=== PATIENT | female | born 1940 | race Caucasian/White ===

== ENCOUNTER → 2017-03-14 | Outpatient (CLI) | payer MEDICARE, OTHER ==
[2017-03-14 09:28] LABS: CHLORIDE,CL 101 mmol/L (98-110); SODIUM,NA 132 mmol/L (136-146)
== END ==
LOC: MW.CHIM 08:40
PROVIDERS: ATTEND Internal Medicine
DX: E11.9 Type 2 diabetes mellitus without complications (principal); I10 Essential (primary) hypertension
CPT/HCPCS: 36415; 80053; 80061; 83036; 85025; 99214

== ENCOUNTER → 2017-04-10 | Outpatient (CLI) | payer MEDICARE, OTHER ==
--- NOTE | 2017-04-10 13:55 | CR ---
EXAMINATION: Right foot HISTORY: Injury COMPARISON: None TECHNIQUE: 2 views FINDINGS: There is a small plantar and large Achilles calcaneal osteophyte. Mild to moderate degener ative changes are noted at the first MTP joint with mild hallux valgus. Mild degenerative changes no neal within the midfoot. No fracture or acute osseous abnormality. Bone mineralization is otherwise n ormal. IMPRESSION: Degenerative changes without acute findings.
== END ==
LOC: MW.CHIM 09:56
PROVIDERS: ATTEND Internal Medicine
DX: T14.90 Injury, unspecified (principal); S90.121A Contusion of right lesser toe(s) without damage to nail, initial encounter; S90.31XA Contusion of right foot, initial encounter; E11.9 Type 2 diabetes mellitus without complications; I10 Essential (primary) hypertension
CPT/HCPCS: 73620-26-RT; 73620-RT; 99214

== ENCOUNTER 2017-12-08 12:56 | Emergency (ER) | payer MEDICARE, OTHER ==
[2017-12-08] MEDS ORDERED: Sodium Chloride 0.9% 2.5 ML Syringe FLUSH PRN (13:06)
[2017-12-08] MEDS ORDERED: Sodium Chloride 0.9% 10 ML Syringe FLUSH PRN (13:06)
[2017-12-08] MEDS ORDERED: Aspirin 81 MG Tab.Chew PO ONE (13:06)
[2017-12-08] MEDS ORDERED: Nitroglycerin 0.4 MG Tab.SL SL ONE (13:06)
--- NOTE | 2017-12-08 13:20 | EDM.PDOC ---
ED HPI GENERAL MEDICAL PROBLEM - General Chief Complaint: Chest Pain Stated Complaint: HEADACHE AND NUMBNESS IN LEFT ARM Time Seen by Provider: 12/08/17 13:15 Source of Information: Reports: Patient History Limitations: Reports: No Limitations - History of Present Illness INITIAL COMMENTS - FREE TEXT/NARRATIVE: HISTORY AND PHYSICAL: History of present illness: [Patient comes to the emergency room complaining of chest pain. States that it began 30 minutes ago and feels like a squeezing sensation over her left chest, which has been fairly constant.. She's had some some radiation down her arm, which comes and goes as well as the tingly feeling. She feels short of breath with this chest pain. Prior to coming to the emergency room she felt very nauseous and extremely sweaty. She also has a headache in the back of her head. She's not taken any medications for her symptoms. She does not usually experience chest pain or shortness of breath. Had a stent placed in approx 2002 by a hostage negotiator in [place]. Cannot remember name. History of coronary artery disease, depression, hyperlipidemia, GERD, hypertension, hypothyroidism, type 2 diabetes. She follows regularly with Dr. Arce at [facility]] Review of systems: As per history of present illness and below otherwise all systems reviewed and negative. Past medical history: As per history of present illness and as reviewed below otherwise noncontributory. Surgical history: As per history of present illness and as reviewed below otherwise noncontributory. Social history: No reported history of drug or alcohol abuse. Family history: As per history of present illness and as reviewed below otherwise noncontributory. Physical exam: Gen.: Well-developed thin elderly female in no acute distress. Vitals are reviewed by this provider. HEENT: Atraumatic, normocephalic. Oral mucous membranes are pink and moist. Lungs: Clear to auscultation, breath sounds equal bilaterally. palpation over her left chest wall and left arm does not reproduce pain. Heart: S1S2, regular rate and rhythm. Abdomen: Soft, nondistended, nontender. Genitourinary: Deferred. Rectal: Deferred. Extremities: Atraumatic, negative for cords or calf pain. Neurovascular unremarkable. Neuro: Awake, alert, oriented. Cranial nerves II through XII unremarkable. Cerebellum unremarkable. Motor and sensory unremarkable throughout. Exam nonfocal. Diagnostics: [EKG, one view chest x-ray, CBC, CMP, troponin, UA, PT/INR/PTT] Therapeutics: [Aspirin 324 mg by mouth, morphine 1 mg IV, nitroglycerin sublingual 3, Zofran 4 mg IV, morphine 2 mg IV] Impression: [Chest pain] Plan: [Patient continues to complain of 8/10 pain in her left chest and down her left arm after nitroglycerin and morphine. She initially had some improvement with her pain from 6-5 out of 10 after 2 doses of nitroglycerin. Patient's condition is reviewed with Dr. Massimo yanez at [facility] in [place]. He agrees to accept patient in transfer. She'll be transferred via [facility]. Heparin 5000 unit bolus given. Heparin drip hanging at 12 units/kg/hour. Patient and her in agreement with today's plan and transfer.] Definitive disposition and diagnosis as appropriate pending reevaluation and review of above. - Related Data Allergies Allergy/AdvReac Type Severity Reaction Status Date / Time No Known Allergies Allergy Verified 12/08/17 13:29 Home Meds: Home Meds Atenolol [Tenormin] 50 mg PO BEDTIME 08/17/14 [History] DULoxetine HCl [Duloxetine HCl] 30 mg PO DAILY 08/17/14 [History] Gemfibrozil 600 mg PO BID 08/17/14 [History] Levothyroxine Sodium [Levoxyl] 50 mcg PO ASDIRECTED 08/17/14 [History] Lisinopril 5 mg PO BEDTIME 08/17/14 [History] Ramipril [Altace] 5 mg PO DAILY 08/17/14 [History] Simvastatin 20 mg PO BEDTIME 08/17/14 [History] metFORMIN [Glucophage XR] 500 mg PO QAM 08/17/14 [History] Aspirin [Halfprin] 1 tab PO DAILY 02/23/15 [History] Magnesium Amino Acid Chelate [Magnesium] 1 tab PO DAILY 02/23/15 [History] Potassium 1 tab PO DAILY 02/23/15 [History] Omeprazole 20 mg PO DAILY 05/04/15 [History] Social & Family History - Tobacco Use Smoking Status *Q: Never Smoker Second Hand Smoke Exposure: No - Alcohol Use Days Per Week of Alcohol Use: 0 - Recreational Drug Use Recreational Drug Use: No Drug Use in Last 12 Months: No ED ROS GENERAL - Review of Systems Review Of Systems: ROS reveals no pertinent complaints other than HPI. ED EXAM, GENERAL - Physical Exam Exam: See Below Course - Vital Signs Last Recorded V/S: Last Vital Signs Temp 98.9 F 12/08/17 13:10 Pulse 69 12/08/17 13:56 Resp 15 12/08/17 13:56 BP 134/69 12/08/17 13:56 Pulse Ox 99 12/08/17 13:56 - Orders/Labs/Meds Orders: Active Orders 24 hr Category Date Time Status EKG Documentation Completion [RC] STAT Care 12/08/17 13:06 Active Saline Lock Insert [OM.PC] Stat Oth 12/08/17 13:06 Ordered Labs: Laboratory Tests 12/08/17 12/08/17 12/08/17 Range/Units 13:00 13:00 13:00 WBC 9.83 (4.0-11.0) K/uL RBC 4.97 (4.30-5.90) M/uL Hgb 14.5 (12.0-16.0) g/dL Hct 41.1 (36.0-46.0) % MCV 82.7 (80.0-98.0) fL MCH 29.2 (27.0-32.0) pg MCHC 35.3 (31.0-37.0) g/dL RDW Std Deviation 40.2 (28.0-62.0) fl RDW Coeff of Inderjit 13 (11.0-15.0) % Plt Count 291 (150-400) K/uL MPV 8.50 (7.40-12.00) fL Neut % (Auto) 47.4 L (48.0-80.0) % Lymph % (Auto) 41.6 H (16.0-40.0) % [place] % (Auto) 9.2 (0.0-15.0) % Eos % (Auto) 1.6 (0.0-7.0) % Baso % (Auto) 0.2 (0.0-1.5) % Neut # (Auto) 4.7 (1.4-5.7) K/uL Lymph # (Auto) 4.1 H (0.6-2.4) K/uL [place] # (Auto) 0.9 H (0.0-0.8) K/uL Eos # (Auto) 0.2 (0.0-0.7) K/uL Baso # (Auto) 0.0 (0.0-0.1) K/uL Nucleated RBC % 0.0 /100WBC Nucleated RBCs # 0 K/uL INR 0.97 (0.86-1.11) Sodium 132 L (136-146) mmol/L Potassium 4.7 (3.5-5.1) mmol/L Chloride 99 (98-110) mmol/L Carbon Dioxide 23 (21-31) mmol/L BUN 10 (6.0-23.0) mg/dL Creatinine 1.1 (0.6-1.5) mg/dL Est Cr Clr Drug Dosing TNP Estimated GFR (MDRD) 48.6 ml/min Glucose 226 H (60-110) mg/dL Calcium 9.9 (8.8-10.8) mg/dL Total Bilirubin 0.5 (0.1-1.5) mg/dL AST 34 (5-40) IU/L ALT 40 (8-54) IU/L Alkaline Phosphatase 112 (40-150) Troponin I 0.11 (0.0-0.29) NG/ML Total Protein 7.8 (6.0-8.0) g/dL Albumin 4.1 (3.4-4.8) g/dL Globulin 3.7 H (2.0-3.5) g/dL Albumin/Globulin Ratio 1.1 L (1.3-2.8) Meds: Medications Discontinued Medications Generic Name Dose Route Start Last Admin Trade Name Karina PRN Reason Stop Dose Admin Aspirin 324 mg 12/08/17 13:06 12/08/17 13:11 Aspirin PO 12/08/17 13:07 324 mg ONETIME ONE Administration Heparin Sodium (Porcine) 5,000 units 12/08/17 14:12 12/08/17 14:26 Heparin Sodium IVPUSH 12/08/17 14:13 5,000 units ONETIME ONE Administration Sodium Chloride 1,000 mls @ 999 mls/hr 12/08/17 13:32 12/08/17 13:40 Normal Saline IV 12/08/17 14:32 999 mls/hr STAT ONE Administration Heparin Sod,Pork In 0.45% Nacl 25,000 unit in 500 mls @ 15 mls/hr 12/08/17 14: 15 Heparin-1/2ns 25,000 Units/500 IV ASDIRECTED YVONNE Protocol Morphine Sulfate 1 mg 12/08/17 13:32 12/08/17 13:39 Morphine IVPUSH 12/08/17 13:33 1 mg ONETIME ONE Administration Morphine Sulfate Confirm 12/08/17 13:31 12/08/17 13:40 Morphine Administered 12/08/17 13:32 Not Given Dose 2 mg .ROUTE .STK-MED ONE Morphine Sulfate 2 mg 12/08/17 13:53 12/08/17 13:54 Morphine IVPUSH 12/08/17 13:54 2 mg ONETIME ONE Administration Morphine Sulfate Confirm 12/08/17 13:54 12/08/17 14:19 Morphine Administered 12/08/17 13:55 Not Given Dose 2 mg .ROUTE .STK-MED ONE Nitroglycerin 0.4 mg 12/08/17 13:06 12/08/17 13:14 Nitrostat SL 12/08/17 13:07 0.4 mg ONETIME ONE Administration Nitroglycerin 0.4 mg 12/08/17 13:22 12/08/17 13:42 Nitrostat SL 0.4 mg Q5M PRN Administration Chest Pain Ondansetron HCl 4 mg 12/08/17 13:32 12/08/17 13:40 Zofran IVPUSH 12/08/17 13:33 4 mg ONETIME ONE Administration Ondansetron HCl Confirm 12/08/17 13:31 12/08/17 13:40 Zofran Administered 12/08/17 13:32 Not Given Dose 4 mg .ROUTE .STK-MED ONE Sodium Chloride 10 ml 12/08/17 13:06 Saline Flush FLUSH ASDIRECTED PRN Keep Vein Open Sodium Chloride 2.5 ml 12/08/17 13:06 Saline Flush FLUSH ASDIRECTED PRN Keep Vein Open Departure - Departure Time of Disposition: 13:50 Disposition: DC/Tfer to Acute Hospital 02 Reason for Transfer *Q: Other Condition: Fair Clinical Impression: Chest pain Referrals: Hussain León DO [Primary Care Provider] - Forms: ED Department Discharge - My Orders Last 24 Hours: My Active Orders 12/08/17 13:06 EKG Documentation Completion [RC] STAT Saline Lock Insert [OM.PC] Stat - Assessment/Plan Last 24 Hours: My Active Orders 12/08/17 13:06 EKG Documentation Completion [RC] STAT Saline Lock Insert [OM.PC] Stat
[2017-12-08] MEDS ORDERED: Morphine 2 MG/ML Syringe ONE ×2 (13:31→13:54)
[2017-12-08] MEDS ORDERED: Ondansetron 4 MG/2 ML SDV ONE (13:31)
[2017-12-08] MEDS ORDERED: Sodium Chloride 0.9% 1,000 ML IV ONE (13:32)
[2017-12-08] MEDS ORDERED: Ondansetron 4 MG/2 ML SDV IVPUSH ONE (13:32)
[2017-12-08] MEDS ORDERED: Morphine 2 MG/ML Syringe IVPUSH ONE ×2 (13:32→13:53)
[2017-12-08 13:37] LABS: CHLORIDE,CL 99 mmol/L (98-110); SODIUM,NA 132 mmol/L (136-146)
[2017-12-08] MEDS: Nitroglycerin 0.4 MG Tab.SL SL PRN ×2 (13:41→13:42)
--- NOTE | 2017-12-08 13:54 | CR ---
EXAMINATION: Portable chest radiograph. HISTORY: Chest pain. FINDINGS: The trachea is midline. The cardiomediastinal silhouette is within normal limits. No pulmonary infilt rates, effusions or pneumothorax. Mild chronic interstitial prominence. Osseous structures appear osteopenic. Degenerative changes noted within the shoulders. IMPRESSION: No acute cardiopulmonary process.
[2017-12-08] MEDS ORDERED: Heparin Sodium 5,000 Units/ML Vial IVPUSH ONE (14:12)
[2017-12-08] MEDS ORDERED: Heparin Sod,Pork In 0.45% Nacl 25,000 UNIT/500 ML IV.SOLN IV SCH (14:15)
[2017-12-08 14:19] VITALS: BP 134/69
== END 2017-12-08 14:35 ==
LOC: MW.ED 12:56
DX: R07.9 Chest pain, unspecified (principal); Z79.82 Long term (current) use of aspirin; Z79.899 Other long term (current) drug therapy
CPT/HCPCS: 36415; 71045; 80053; 84484; 85025; 85610; 96361; 96374; 96375; 99285; A9270; J1644; J2270; J2405; J7040; 93005

== ENCOUNTER 2017-12-18 03:29 | Inpatient (IN) | payer MEDICARE, OTHER ==
--- NOTE | 2017-12-18 03:41 | EDM.PDOC ---
ED HPI GENERAL MEDICAL PROBLEM - General Chief Complaint: General Stated Complaint: WEAK Time Seen by Provider: 12/18/17 03:40 Source of Information: Reports: Patient - History of Present Illness INITIAL COMMENTS - FREE TEXT/NARRATIVE: HISTORY AND PHYSICAL: History of present illness: [Patient presents with generalized weakness and an episode of hypotension at home at least on their home equipment they measured 76 over 50s patient was uncertain what to do so she took a nitroglycerin tablet, her brings her in such her blood pressure stable with fluids at 126/56 at current. Patient did at a rear have a recent stay at [facility] she was transferred on 12/08/2017 for acute coronary syndrome subsequently she had a stent removed that was clogged as well as 3 more stents placed, have spoken with [facility] and her troponin had peaked at 16.0 trending down over the last week on discharge Friday troponin was 7. Her troponin is 0.4 current so certainly trending down and of less concern. EKG is normal sinus rhythm with no acute ST changes Patient is mildly confused generally weak no fever nausea vomiting diarrhea constipation chest pain shortness breath headache dizziness or palpitation no diaphoresis ] Review of systems: As per history of present illness and below otherwise all systems reviewed and negative. Past medical history: As per history of present illness and as reviewed below otherwise noncontributory. Surgical history: As per history of present illness and as reviewed below otherwise noncontributory. Social history: No reported history of drug or alcohol abuse. Family history: As per history of present illness and as reviewed below otherwise noncontributory. Physical exam: HEENT: Atraumatic, normocephalic, pupils reactive, negative for conjunctival pallor or scleral icterus, mucous membranes moist, throat clear, neck supple, nontender, trachea midline. Lungs: Clear to auscultation, breath sounds equal bilaterally, chest nontender. Heart: S1S2, regular, negative for clicks, rubs, or JVD. Abdomen: Soft, nondistended, nontender. Negative for masses or hepatosplenomegaly. Negative for costovertebral tenderness. Pelvis: Stable nontender. Genitourinary: Deferred. Rectal: Deferred. Extremities: Atraumatic, negative for cords or calf pain. Neurovascular unremarkable. Neuro: Awake, alert, oriented. Cranial nerves II through XII unremarkable. Cerebellum unremarkable. Motor and sensory unremarkable throughout. Exam nonfocal. Diagnostics: [CBC CMP UA troponin lactic acid EKG Chest [address] head no contrast ] Therapeutics: [Normal saline 1 25 mL per hour ] Impression: Hyponatremia Elevated troponin, trending down from a peak of 16 last week Recent cardiac catheter over the last week with 3 stents placed [Dizzy Week] secondary to above Hypotension secondary to nitroglycerin Patient admitted for observation telemetry Definitive disposition and diagnosis as appropriate pending reevaluation and review of above. head Pain Score (Numeric/FACES): 7 - Related Data Allergies Allergy/AdvReac Type Severity Reaction Status Date / Time No Known Allergies Allergy Verified 12/18/17 03:37 Home Meds: Home Meds DULoxetine HCl [Duloxetine HCl] 30 mg PO BID 08/17/14 [History] Levothyroxine Sodium [Levoxyl] 50 mcg PO ASDIRECTED 08/17/14 [History] Lisinopril 5 mg PO BEDTIME 08/17/14 [History] Ramipril [Altace] 5 mg PO DAILY 08/17/14 [History] metFORMIN [Glucophage XR] 500 mg PO QAM 08/17/14 [History] Aspirin [Halfprin] 1 tab PO DAILY 02/23/15 [History] Carvedilol 6.25 mg PO BID 12/18/17 [History] Clopidogrel [Plavix] 75 mg PO DAILY 12/18/17 [History] Hydrocodone/Acetaminophen [Hydrocodon-Acetaminophen 5-325] 1 each PO Q4H [History] Pantoprazole Sodium 40 mg PO DAILY 12/18/17 [History] atorvaSTATin [Lipitor] 20 mg PO BEDTIME 12/18/17 [History] Past Medical History Cardiovascular History: Reports: Hypertension, Stents Endocrine/Metabolic History: Reports: Diabetes, Type II - Infectious Disease History Infectious Disease History: Reports: Measles Social & Family History - Family History Family Medical History: Noncontributory - Tobacco Use Smoking Status *Q: Never Smoker Second Hand Smoke Exposure: No - Caffeine Use Caffeine Use: Reports: None - Alcohol Use Days Per Week of Alcohol Use: 0 - Recreational Drug Use Recreational Drug Use: No Drug Use in Last 12 Months: No ED ROS GENERAL - Review of Systems Review Of Systems: ROS reveals no pertinent complaints other than HPI. ED EXAM, GENERAL - Physical Exam Exam: See Below Course - Vital Signs Last Recorded V/S: Last Vital Signs Temp 97 F 12/18/17 03:29 Pulse 59 L 12/18/17 03:29 Resp 18 12/18/17 03:29 BP 112/56 L 12/18/17 03:29 Pulse Ox 97 12/18/17 03:29 - Orders/Labs/Meds Orders: Active Orders 24 hr Category Date Time Status EKG Documentation Completion [RC] STAT Care 12/18/17 03:40 Active Chest 2V [CR] Stat Exams 12/18/17 03:40 Taken Head wo Cont [CT] Stat Exams 12/18/17 04:07 Taken AMYLASE [CHEM] Stat Lab 12/18/17 03:20 Received B-TYPE NATRIURETIC PEPTIDE,BNP [CHEM] Stat Lab 12/18/17 03:20 Received INR,PT,PROTHROMBIN TIME [COAG] Stat Lab 12/18/17 03:20 Received LIPASE [CHEM] Stat Lab 12/18/17 03:20 Received UA W/MICROSCOPIC [URIN] Stat Lab 12/18/17 03:39 Uncollected Sodium Chloride 0.9% [Normal Saline] 1,000 ml Med 12/18/17 03:45 Active IV STAT Medication Orders Sodium Chloride (Normal Saline) 1,000 mls @ 125 mls/hr IV STAT YVONNE Last Admin: 12/18/17 04:02 Dose: 125 mls/hr Labs: Laboratory Tests 12/18/17 12/18/17 12/18/17 Range/Units 03:20 03:20 03:20 WBC 9.22 (4.0-11.0) K/uL RBC 3.41 L (4.30-5.90) M/uL Hgb 9.9 L (12.0-16.0) g/dL Hct 28.5 L (36.0-46.0) % MCV 83.6 (80.0-98.0) fL MCH 29.0 (27.0-32.0) pg MCHC 34.7 (31.0-37.0) g/dL RDW Std Deviation 42.1 (28.0-62.0) fl RDW Coeff of Inderjit 14 (11.0-15.0) % Plt Count 330 (150-400) K/uL MPV 7.90 (7.40-12.00) fL Neut % (Auto) 43.3 L (48.0-80.0) % Lymph % (Auto) 40.2 H (16.0-40.0) % [place] % (Auto) 11.7 (0.0-15.0) % Eos % (Auto) 4.4 (0.0-7.0) % Baso % (Auto) 0.4 (0.0-1.5) % Neut # (Auto) 4.0 (1.4-5.7) K/uL Lymph # (Auto) 3.7 H (0.6-2.4) K/uL [place] # (Auto) 1.1 H (0.0-0.8) K/uL Eos # (Auto) 0.4 (0.0-0.7) K/uL Baso # (Auto) 0.0 (0.0-0.1) K/uL Nucleated RBC % 0.0 /100WBC Nucleated RBCs # 0 K/uL Lactate 1.5 (0.20-2.00) mmol/L Sodium 126 L (136-146) mmol/L Potassium 3.8 (3.5-5.1) mmol/L Chloride 96 L (98-110) mmol/L Carbon Dioxide 21 (21-31) mmol/L BUN 9 (6.0-23.0) mg/dL Creatinine 1.2 (0.6-1.5) mg/dL Est Cr Clr Drug Dosing TNP Estimated GFR (MDRD) 43.8 ml/min Glucose 122 H (60-110) mg/dL Calcium 8.8 (8.8-10.8) mg/dL Total Bilirubin 0.5 (0.1-1.5) mg/dL AST 23 (5-40) IU/L ALT 23 (8-54) IU/L Alkaline Phosphatase 90 (40-150) Creatine Kinase (9-236) IU/L CK-MB (CK-2) (0-6.6) ng/ml Troponin I 0.44 H* (0.0-0.29) NG/ML Total Protein 6.4 (6.0-8.0) g/dL Albumin 3.6 (3.4-4.8) g/dL Globulin 2.8 (2.0-3.5) g/dL Albumin/Globulin Ratio 1.3 (1.3-2.8) 12/18/17 Range/Units 03:20 WBC (4.0-11.0) K/uL RBC (4.30-5.90) M/uL Hgb (12.0-16.0) g/dL Hct (36.0-46.0) % MCV (80.0-98.0) fL MCH (27.0-32.0) pg MCHC (31.0-37.0) g/dL RDW Std Deviation (28.0-62.0) fl RDW Coeff of Inderjit (11.0-15.0) % Plt Count (150-400) K/uL MPV (7.40-12.00) fL Neut % (Auto) (48.0-80.0) % Lymph % (Auto) (16.0-40.0) % [place] % (Auto) (0.0-15.0) % Eos % (Auto) (0.0-7.0) % Baso % (Auto) (0.0-1.5) % Neut # (Auto) (1.4-5.7) K/uL Lymph # (Auto) (0.6-2.4) K/uL [place] # (Auto) (0.0-0.8) K/uL Eos # (Auto) (0.0-0.7) K/uL Baso # (Auto) (0.0-0.1) K/uL Nucleated RBC % /100WBC Nucleated RBCs # K/uL Lactate (0.20-2.00) mmol/L Sodium (136-146) mmol/L Potassium (3.5-5.1) mmol/L Chloride (98-110) mmol/L Carbon Dioxide (21-31) mmol/L BUN (6.0-23.0) mg/dL Creatinine (0.6-1.5) mg/dL Est Cr Clr Drug Dosing Estimated GFR (MDRD) ml/min Glucose (60-110) mg/dL Calcium (8.8-10.8) mg/dL Total Bilirubin (0.1-1.5) mg/dL AST (5-40) IU/L ALT (8-54) IU/L Alkaline Phosphatase (40-150) Creatine Kinase 54 (9-236) IU/L CK-MB (CK-2) 1.2 (0-6.6) ng/ml Troponin I (0.0-0.29) NG/ML Total Protein (6.0-8.0) g/dL Albumin (3.4-4.8) g/dL Globulin (2.0-3.5) g/dL Albumin/Globulin Ratio (1.3-2.8) Meds: Medications Generic Name Dose Route Start Last Admin Trade Name Freq PRN Reason Stop Dose Admin Sodium Chloride 1,000 mls @ 125 mls/hr 12/18/17 03:45 12/18/17 04:02 Normal Saline IV 125 mls/hr STAT YVONNE Administration Discontinued Medications Generic Name Dose Route Start Last Admin Trade Name Freq PRN Reason Stop Dose Admin Aspirin 324 mg 12/18/17 04:51 12/18/17 04:55 Aspirin PO 12/18/17 04:52 Not Given ONETIME ONE Departure - Departure Time of Disposition: 05:18 Disposition: Refer to Observation Condition: Fair Clinical Impression: Hypotension, Hyponatremia - Discharge Information Referrals: Hussain León DO [Primary Care Provider] - Forms: ED Department Discharge - My Orders Last 24 Hours: My Active Orders 12/18/17 03:20 AMYLASE [CHEM] Stat B-TYPE NATRIURETIC PEPTIDE,BNP [CHEM] Stat INR,PT,PROTHROMBIN TIME [COAG] Stat LIPASE [CHEM] Stat 12/18/17 03:39 UA W/MICROSCOPIC [URIN] Stat 12/18/17 03:40 EKG Documentation Completion [RC] STAT Chest 2V [CR] Stat 12/18/17 03:45 Sodium Chloride 0.9% [Normal Saline] 1,000 ml IV STAT 12/18/17 04:07 Head wo Cont [CT] Stat - Assessment/Plan Last 24 Hours: My Active Orders 12/18/17 03:20 AMYLASE [CHEM] Stat B-TYPE NATRIURETIC PEPTIDE,BNP [CHEM] Stat INR,PT,PROTHROMBIN TIME [COAG] Stat LIPASE [CHEM] Stat 12/18/17 03:39 UA W/MICROSCOPIC [URIN] Stat 12/18/17 03:40 EKG Documentation Completion [RC] STAT Chest 2V [CR] Stat 12/18/17 03:45 Sodium Chloride 0.9% [Normal Saline] 1,000 ml IV STAT 12/18/17 04:07 Head wo Cont [CT] Stat
[2017-12-18] MEDS ORDERED: Sodium Chloride 0.9% 1,000 ML IV SCH ×2 (03:45→07:30)
[2017-12-18 04:28] LABS: CHLORIDE,CL 96 mmol/L (98-110); SODIUM,NA 126 mmol/L (136-146)
[2017-12-18] MEDS ORDERED: Aspirin 81 MG Tab.Chew PO ONE (04:51)
--- NOTE | 2017-12-18 06:38 | PCM.HP ---
H&P History of Present Illness - General Date of Service: 12/18/17 Admit Problem/Dx: Admission Diagnosis/Problem Admission Diagnosis/Problem Hyponatremia Source of Information: Patient History Limitations: Reports: No Limitations - History of Present Illness Initial Comments - Free Text/Narative: 77-year-old female presenting to emergency department with chief complaint of generalized weakness and an episode of hypotension at home with past medical history of CAD 4 stents on Plavix 12/08/17, hypertension, hyperlipidemia, DM 2, hypothyroidism, and history of breast and ovarian cancer in remission. Patient presented to emergency department by private vehicle with her with chief complaint of generalized weakness and hypotension. states that she spent the entire day yesterday in bed with episodes of dizziness. Approximately 0100 he took her blood pressure which was 76/42. Getting concerned , he gave her nitroglycerin sublingual as well as 2 ASA. She began to have some blurry vision so he proceeded to take her into the emergency department. In the ED her BP was 102/42 which responded to IV NS 1 L to 126/56. Patient was recently seen in the emergency department on 12/08/17 where she was found to be have acute coronary syndrome. She was shipped to [facility] where she underwent cardiac cath. states that her stent that was placed in 2000 was 90% occluded and was removed. They report a total of 4 vessels were stented. Emergency room physician did talk with [facility] and they reported that her troponin peaked at 16 and was trending down over the last week. She was discharged this last Friday with a troponin of 7. In Emergency department she was found to have an elevated troponin of 0.4 which is consistent with a downward trend. Patient also reports that they did keep her an extra day because she had blood in her stool. She did receive a colonoscopy and no significant findings were discovered. Patient states that the specialist believed that she may have had a "polyp in her stomach that burst". She reports no new bloody stool or dark tarry stools. states that he has been pushing fluids rigorously as she is been somewhat weak. She did get her flu vaccination and was negative in the emergency department. She reports no nausea, vomiting, diarrhea, fever, chest pain, palpitations, diaphoresis, syncopal episodes, or focal neurologic deficits. In the emergency department: CBC showed anemia with hemoglobin of 9.9, hyponatremia 126 with a serum osmolality of 262., Elevated troponin at 0.44, negative flu, EKG showing normal sinus rhythm with no acute ST changes, chest x-ray showing new mild cardiomegaly , CT of the head showed no evidence of acute infarction, intracranial hemorrhage , or mass effect. Patient was admitted for hyponatremia and weakness. head Pain Score (Numeric/FACES): 7 - Related Data Allergies/Adverse Reactions: Allergies Allergy/AdvReac Type Severity Reaction Status Date / Time No Known Allergies Allergy Verified 12/18/17 08:03 Home Medications: Home Meds DULoxetine HCl [Duloxetine HCl] 30 mg PO BID 08/17/14 [History] Levothyroxine Sodium [Levoxyl] 50 mcg PO ASDIRECTED 08/17/14 [History] Lisinopril 5 mg PO BEDTIME 08/17/14 [History] Ramipril [Altace] 5 mg PO DAILY 08/17/14 [History] metFORMIN [Glucophage XR] 500 mg PO QAM 08/17/14 [History] Aspirin [Halfprin] 1 tab PO DAILY 02/23/15 [History] Carvedilol 6.25 mg PO BID 12/18/17 [History] Clopidogrel [Plavix] 75 mg PO DAILY 12/18/17 [History] Ferrous Fumarate 1 tab PO DAILY 12/18/17 [History] Hydrocodone/Acetaminophen [Hydrocodon-Acetaminophen 5-325] 1 each PO Q4H [History] Nitroglycerin [Nitrostat] 0.4 mg SL ASDIRECTED PRN 12/18/17 [History] Pantoprazole Sodium 40 mg PO DAILY 12/18/17 [History] atorvaSTATin [Lipitor] 20 mg PO BEDTIME 12/18/17 [History] Past Medical History - Past Health History Medical/Surgical History: Denies Medical/Surgical History Cardiovascular History: Reports: Hypertension, 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: Endocrine/Metabolic History: Reports: Diabetes, Type II - Infectious Disease History Infectious Disease History: Reports: Measles Social & Family History - Family History Family Medical History: Noncontributory - Tobacco Use Smoking Status *Q: Never Smoker Second Hand Smoke Exposure: No - Caffeine Use Caffeine Use: Reports: None Caffeine Use Comment: de-caf - Alcohol Use Days Per Week of Alcohol Use: 0 - Recreational Drug Use Recreational Drug Use: No Drug Use in Last 12 Months: No H&P Review of Systems - Review of Systems: Review Of Systems: See Below General: Reports: Malaise, Weakness, Fatigue. Denies: Fever, Chills, Diaphoresis HEENT: Reports: Headaches. Denies: Dysphasia, Sinus Congestion, Sore Throat Pulmonary: Denies: Shortness of Breath, Wheezing, Cough, Sputum Cardiovascular: Denies: Chest Pain, Palpitations, Edema Gastrointestinal: Denies: Abdominal Pain, Anorexia, Black Stool, Bloody Stool, Nausea, Vomiting Genitourinary: Denies: Dysuria, Hematuria Musculoskeletal: Denies: Neck Pain, Leg Pain Skin: Denies: Cyanosis Psychiatric: Denies: Confusion Neurological: Denies: Confusion, Dizziness, Headache Hematologic/Lymphatic: Denies: Anemia Exam - Exam Exam: See Below - Vital Signs Vital Signs: Last Vital Signs Temp 98.9 F 12/18/17 06:02 Pulse 60 12/18/17 06:05 Resp 16 12/18/17 06:05 BP 102/42 L 12/18/17 06:02 Pulse Ox 93 L 12/18/17 06:05 Weight: 58.287 kg - Exam Quality Assessment: DVT Prophylaxis General: Alert, Oriented, Cooperative HEENT: Conjunctiva Clear, EACs Clear, EOMI, Hearing Intact, Mucosa Moist & Goehner , Nares Patent, Normal Nasal Septum, Posterior Pharynx Clear, PERRLA Neck: Supple, Trachea Midline, 2 Lungs: Clear to Auscultation, Normal Respiratory Effort Cardiovascular: Regular Rate, Regular Rhythm, Normal S1, Normal S2, Systolic Murmur GI/Abdominal Exam: Normal Bowel Sounds, Soft, Non-Tender, No Organomegaly, No Distention Back Exam: Normal Inspection Extremities: Normal Inspection, Non-Tender, No Pedal Edema, Normal Capillary Refill Peripheral Pulses: 2+: Radial (L), Radial (R), Posterior Tibial (L), Posterior Tibial (R), Dorsalis Pedis (L), Dorsalis Pedis (R) Skin: Warm, Dry, Intact Neurological: Cranial Nerves Intact Neuro Extensive - Mental Status: Alert, Oriented x3, Normal Mood/Affect, Normal Cognition Neuro Extensive - Motor, Sensory, Reflexes: CN II-XII Intact Psychiatric: Alert, Normal Affect, Normal Mood - Patient Data Result Diagrams: 12/18/17 03:20 12/18/17 15:11 *Q Meaningful Use (ADM) - VTE *Q VTE Criteria *Q: - Stroke *Q Stroke Criteria *Q: - AMI *Q AMI Criteria *Q: - Problem List (1) CAD (coronary artery disease), [place] coronary artery SNOMED Code(s): 6273473887403 ICD Code: I25.10 - ATHSCL HEART DISEASE OF [place] CORONARY ARTERY W/O ANG PCTRS Status: Chronic Priority: High Current Visit: Yes Qualifiers: [place] vs. transplanted heart: [place] heart Associated angina: angina presence unspecified Qualified Code(s): I25.10 - Atherosclerotic heart disease of [place] coronary artery without angina pectoris (2) History of heart artery stent SNOMED Code(s): 341969553 ICD Code: Z95.5 - PRESENCE OF CORONARY ANGIOPLASTY IMPLANT AND GRAFT Status : Chronic Priority: High Current Visit: Yes (3) DM2 (diabetes mellitus, type 2) SNOMED Code(s): 56901583 ICD Code: E11.9 - TYPE 2 DIABETES MELLITUS WITHOUT COMPLICATIONS Status: Chronic Priority: Low Current Visit: Yes Qualifiers: Diabetes mellitus complication status: without complication Diabetes mellitus chcf insulin use: without chcf use Qualified Code(s): E11.9 - Type 2 diabetes mellitus without complications (4) Hyperlipidemia SNOMED Code(s): 58910772 ICD Code: E78.5 - HYPERLIPIDEMIA, UNSPECIFIED Status: Chronic Priority: Low Current Visit: Yes Qualifiers: Hyperlipidemia type: unspecified Qualified Code(s): E78.5 - Hyperlipidemia , unspecified (5) Hypothyroidism SNOMED Code(s): 53726932 ICD Code: E03.9 - HYPOTHYROIDISM, UNSPECIFIED Status: Chronic Priority: Medium Current Visit: Yes Qualifiers: Hypothyroidism type: unspecified Qualified Code(s): E03.9 - Hypothyroidism , unspecified (6) Hyponatremia SNOMED Code(s): 63396317 ICD Code: E87.1 - HYPO-OSMOLALITY AND HYPONATREMIA Status: Acute Priority : High Current Visit: Yes (7) Hypotension SNOMED Code(s): 45431696 ICD Code: I95.9 - HYPOTENSION, UNSPECIFIED Status: Resolved Priority: High Current Visit: Yes Qualifiers: Hypotension type: unspecified hypotension type Qualified Code(s): I95.9 - Hypotension, unspecified Problem List Initiated/Reviewed/Updated: Yes Orders Last 24hrs: Medication Orders Sodium Chloride (Normal Saline) 1,000 mls @ 125 mls/hr IV STAT YVONNE Last Admin: 12/18/17 04:02 Dose: 125 mls/hr Assessment/Plan Comment:: 77-year-old female admitted 12/18/17 for hyponatremia and generalized weakness with past medical history of CAD with stent 4 on Plavix, hypertension, hyperlipidemia, hypothyroidism type 2 diabetes, history of ovarian and breast cancer in remission. Hyponatremia: Serum osmolality low at 262. As per patient no recent GI losses. We'll recheck TSH as patient is hypothyroid. 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 With clinical correction of 4-6 mEq per 24 hours. This also could be secondary to recent surgery from her CAD with stents. She may have a component of heart failure given her history of CAD. We' ll consider echocardiogram. Hemoccult as patient reports bloody stool while in [place] but did receive colonoscopy which was unremarkable. Will monitor closely. CAD 4 on Plavix: Recent heart cath on 12/08/17 placing as per patient 4 stents. She did have elevated troponin but has been trending down since admission at [facility]. Will trend troponin every 6 hours to make sure that this trend continues. Troponin 0.4 in ED. Hypertension: Was hypotensive in the emergency department now normotensive. Will restart home medications as tolerated. Hyperlipidemia: Currently stable will restart home meds. Hypothyroidism: As above will recheck TSH as may be a cause for hyponatremia. We 'll continue her home levothyroxine and adjust as needed. Type 2 diabetes: Patient takes only metformin at home. We'll place on insulin sliding scale low. History of ovarian and breast cancer in remission: In remission however should keep this consideration if she continues to have unexplained hyponatremia. VTE proph: SCD, Heparin Dispo: 1-2 days.
[2017-12-18] MEDS ORDERED: Ketorolac 30 MG/ML SDV IV STA (07:26)
[2017-12-18] MEDS ORDERED: Ondansetron 4 MG Tab.DIS PO PRN (07:26)
[2017-12-18] MEDS ORDERED: Ondansetron 4 MG/2 ML SDV IVPUSH PRN (07:26)
[2017-12-18] MEDS ORDERED: Temazepam 15 MG Cap PO PRN (07:26)
[2017-12-18] MEDS ORDERED: Morphine 2 MG/ML Syringe IVPUSH PRN (07:26)
[2017-12-18] MEDS ORDERED: Nitroglycerin 0.4 MG Tab.SL SL PRN (07:38)
[2017-12-18] MEDS ORDERED: Levothyroxine 50 MCG Tab PO SCH (07:45)
[2017-12-18] MEDS: Heparin Sodium 5,000 Units/ML Vial SUBCUT SCH ×2 (07:51→18:39)
[2017-12-18] MEDS: Clopidogrel 75 MG Tab PO SCH (08:54)
[2017-12-18] MEDS: DULoxetine 30 MG Cap PO SCH ×2 (08:55→22:02)
[2017-12-18] MEDS: Aspirin 81 MG Tab.EC PO SCH (08:55)
[2017-12-18] MEDS: Pantoprazole 40 MG Tab.CR PO SCH (08:55)
[2017-12-18] MEDS: Ferrous Sulfate 325 MG Tab PO SCH (08:56)
[2017-12-18] MEDS: Carvedilol 6.25 MG Tab PO SCH ×2 (08:57→22:02)
[2017-12-18] MEDS ORDERED: Ferrous Sulfate 325 MG Tab PO SCH (09:00)
--- NOTE | 2017-12-18 09:05 | PCM.HP ---
H&P History of Present Illness - General Admit Problem/Dx: Admission Diagnosis/Problem Admission Diagnosis/Problem Hyponatremia head Pain Score (Numeric/FACES): 7 - Related Data Allergies/Adverse Reactions: Allergies Allergy/AdvReac Type Severity Reaction Status Date / Time No Known Allergies Allergy Verified 12/18/17 08:03 Home Medications: Home Meds DULoxetine HCl [Duloxetine HCl] 30 mg PO BID 08/17/14 [History] Levothyroxine Sodium [Levoxyl] 50 mcg PO ASDIRECTED 08/17/14 [History] Lisinopril 5 mg PO BEDTIME 08/17/14 [History] Ramipril [Altace] 5 mg PO DAILY 08/17/14 [History] metFORMIN [Glucophage XR] 500 mg PO QAM 08/17/14 [History] Aspirin [Halfprin] 1 tab PO DAILY 02/23/15 [History] Carvedilol 6.25 mg PO BID 12/18/17 [History] Clopidogrel [Plavix] 75 mg PO DAILY 12/18/17 [History] Ferrous Fumarate 1 tab PO DAILY 12/18/17 [History] Hydrocodone/Acetaminophen [Hydrocodon-Acetaminophen 5-325] 1 each PO Q4H [History] Nitroglycerin [Nitrostat] 0.4 mg SL ASDIRECTED PRN 12/18/17 [History] Pantoprazole Sodium 40 mg PO DAILY 12/18/17 [History] atorvaSTATin [Lipitor] 20 mg PO BEDTIME 12/18/17 [History] Past Medical History - Past Health History Medical/Surgical History: Denies Medical/Surgical History HEENT History: Reports: Sinusitis Cardiovascular History: Reports: Hypertension, 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: Musculoskeletal History: Reports: Arthritis Endocrine/Metabolic History: Reports: Diabetes, Type II Oncologic (Cancer) History: Reports: Breast, Ovarian Dermatologic History: Reports: None - Infectious Disease History Infectious Disease History: Reports: Measles - Past Surgical History HEENT Surgical History: Reports: None Cardiovascular Surgical History: Reports: Coronary Artery Stent Musculoskeletal Surgical History: Reports: Other (See Below) Other Musculoskeletal Surgeries/Procedures:: Right ankle plate and screws Oncologic Surgical History: Reports: Mastectomy Social & Family History - Family History Family Medical History: Noncontributory Cardiac: Reports: CAD, [place] Oncologic: Reports: Breast - Tobacco Use Smoking Status *Q: Never Smoker Second Hand Smoke Exposure: No - Caffeine Use Caffeine Use: Reports: None Caffeine Use Comment: de-caf - Alcohol Use Days Per Week of Alcohol Use: 0 - Recreational Drug Use Recreational Drug Use: No Drug Use in Last 12 Months: No H&P Review of Systems - Review of Systems: Review Of Systems: See Below Exam - Exam Exam: See Below - Vital Signs Vital Signs: Last Vital Signs Temp 97.1 F 12/18/17 06:20 Pulse 65 12/18/17 06:20 Resp 18 12/18/17 06:20 BP 102/42 L 12/18/17 06:20 Pulse Ox 95 12/18/17 06:20 Weight: 58.287 kg - Patient Data Lab Results Last 24 hrs: Laboratory Results - last 24 hr 12/18/17 12/18/17 Range/Units 07:49 07:49 Sodium 127 L (136-146) mmol/L Potassium 4.1 (3.5-5.1) mmol/L Chloride 98 (98-110) mmol/L Carbon Dioxide 19 L (21-31) mmol/L BUN 10 (6.0-23.0) mg/dL Creatinine 1.1 (0.6-1.5) mg/dL Est Cr Clr Drug Dosing 33.34 mL/min Estimated GFR (MDRD) 48.4 ml/min Glucose 128 H (60-110) mg/dL Calcium 8.7 L (8.8-10.8) mg/dL TSH 3rd Generation 1.07 (0.47-5.0) uIU/mL Result Diagrams: 12/18/17 03:20 12/18/17 07:49 *Q Meaningful Use (ADM) - VTE *Q VTE Criteria *Q: - Stroke *Q Stroke Criteria *Q: - AMI *Q AMI Criteria *Q: - Problem List (1) CAD (coronary artery disease), [place] coronary artery SNOMED Code(s): 1627517575664 ICD Code: I25.10 - ATHSCL HEART DISEASE OF [place] CORONARY ARTERY W/O ANG PCTRS Status: Chronic Priority: High Current Visit: Yes Qualifiers: [place] vs. transplanted heart: [place] heart Associated angina: angina presence unspecified Qualified Code(s): I25.10 - Atherosclerotic heart disease of [place] coronary artery without angina pectoris (2) History of heart artery stent SNOMED Code(s): 888297490 ICD Code: Z95.5 - PRESENCE OF CORONARY ANGIOPLASTY IMPLANT AND GRAFT Status : Chronic Priority: High Current Visit: Yes (3) DM2 (diabetes mellitus, type 2) SNOMED Code(s): 82162097 ICD Code: E11.9 - TYPE 2 DIABETES MELLITUS WITHOUT COMPLICATIONS Status: Chronic Priority: Low Current Visit: Yes Qualifiers: Diabetes mellitus complication status: without complication Diabetes mellitus assisted 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 Qualified Code(s): E11.9 - Type 2 diabetes mellitus without complications (4) Hyperlipidemia SNOMED Code(s): 22493090 ICD Code: E78.5 - HYPERLIPIDEMIA, UNSPECIFIED Status: Chronic Priority: Low Current Visit: Yes Qualifiers: Hyperlipidemia type: unspecified Qualified Code(s): E78.5 - Hyperlipidemia , unspecified (5) Hypothyroidism SNOMED Code(s): 48916904 ICD Code: E03.9 - HYPOTHYROIDISM, UNSPECIFIED Status: Chronic Priority: Medium Current Visit: Yes Qualifiers: Hypothyroidism type: unspecified Qualified Code(s): E03.9 - Hypothyroidism , unspecified (6) Hyponatremia SNOMED Code(s): 09483510 ICD Code: E87.1 - HYPO-OSMOLALITY AND HYPONATREMIA Status: Acute Priority : High Current Visit: Yes (7) Hypotension SNOMED Code(s): 20869189 ICD Code: I95.9 - HYPOTENSION, UNSPECIFIED Status: Resolved Priority: High Current Visit: Yes Qualifiers: Hypotension type: unspecified hypotension type Qualified Code(s): I95.9 - Hypotension, unspecified Problem List Initiated/Reviewed/Updated: Yes Orders Last 24hrs: Active Orders 24 hr Category Date Time Status Patient Status [ADT] Routine ADT 12/18/17 07:26 Active Antiembolic Devices [RC] PER UNIT ROUTINE Care 12/18/17 07:29 Active Height and Weight [RC] DAILY Care 12/18/17 07:26 Active Intake and Output [RC] QSHIFT Care 12/18/17 07:28 Active Oxygen Therapy [RC] PRN Care 12/18/17 07:26 Active Telemetry Monitoring [Cardiac Monitoring] [RC] Q8H Care 12/18/17 07:37 Active Up With Assistance [RC] ASDIRECTED Care 12/18/17 07:26 Active Vital Signs [RC] Q4H Care 12/18/17 07:26 Active Heart Healthy Diet [DIET] Diet 12/18/17 Breakfast Active BASIC METABOLIC PANEL,BMP [CHEM] Q4H Lab 12/18/17 11:20 Ordered BASIC METABOLIC PANEL,BMP [CHEM] Q4H Lab 12/18/17 15:26 Ordered BASIC METABOLIC PANEL,BMP [CHEM] Q4H Lab 12/18/17 19:26 Ordered BASIC METABOLIC PANEL,BMP [CHEM] Q4H Lab 12/18/17 23:26 Ordered BMP [BASIC METABOLIC PANEL,BMP] [CHEM] Q4H Lab 12/18/17 12:00 Ordered BMP [BASIC METABOLIC PANEL,BMP] [CHEM] Q4H Lab 12/18/17 16:00 Ordered BMP [BASIC METABOLIC PANEL,BMP] [CHEM] Q4H Lab 12/18/17 20:00 Ordered BMP [BASIC METABOLIC PANEL,BMP] [CHEM] Q4 Lab 12/19/17 00:00 Ordered BMP [BASIC METABOLIC PANEL,BMP] [CHEM] Q4 Lab 12/19/17 04:00 Ordered BMP [BASIC METABOLIC PANEL,BMP] [CHEM] Q4H Lab 12/19/17 08:00 Ordered CBC WITH AUTO DIFF [HEME] AM Lab 12/19/17 05:11 Ordered CBC WITH AUTO DIFF [HEME] AM Lab 12/20/17 05:11 Ordered CBC WITH AUTO DIFF [HEME] AM Lab 12/21/17 05:11 Ordered CBC WITH AUTO DIFF [HEME] AM Lab 12/22/17 05:11 Ordered CULTURE URINE [RM] Routine Lab 12/18/17 07:26 Uncollected MAGNESIUM [CHEM] AM Lab 12/19/17 05:11 Ordered OCCULT BLOOD DIAGNOSTIC [OP] Routine Lab 12/18/17 07:26 Uncollected PHOSPHORUS [CHEM] AM Lab 12/19/17 05:11 Ordered TROPONIN I [CHEM] Q2H Lab 12/18/17 09:20 Ordered TROPONIN I [CHEM] Routine Lab 12/18/17 09:00 Ordered TROPONIN I [CHEM] Routine Lab 12/18/17 15:00 Ordered Acetaminophen [Tylenol] Med 12/18/17 07:26 Active 650 mg PO Q4H PRN Aspirin [Halfprin] Med 12/18/17 09:00 Active 81 mg PO DAILY Carvedilol [Coreg] Med 12/18/17 09:00 Active 6.25 mg PO BID Clopidogrel [Plavix] Med 12/18/17 09:00 Active 75 mg PO DAILY DULoxetine [Cymbalta] Med 12/18/17 09:00 Active 30 mg PO BID Ferrous Sulfate Med 12/18/17 09:00 Active 1 mg PO DAILY Heparin Sodium Med 12/18/17 07:30 Active 5,000 units SUBCUT Q12H Insulin Aspart [NovoLOG] Med 12/18/17 11:30 Active See Protocol SUBCUT TIDAC Levothyroxine [Synthroid] Med 12/18/17 07:45 Active 50 mcg PO ASDIRECTED Lisinopril [Prinivil] Med 12/18/17 21:00 Active 5 mg PO BEDTIME Morphine Med 12/18/17 07:26 Active 2 mg IVPUSH Q2H PRN Nitroglycerin [Nitrostat] Med 12/18/17 07:38 Active 0.4 mg SL ASDIRECTED PRN Ondansetron [Zofran ODT] Med 12/18/17 07:26 Active 4 mg PO Q4H PRN Ondansetron [Zofran] Med 12/18/17 07:26 Active 4 mg IVPUSH Q4H PRN Pantoprazole [ProTONIX] Med 12/18/17 09:00 Active 40 mg PO DAILY Sodium Chloride 0.9% [Normal Saline] 1,000 ml Med 12/18/17 07:30 Active IV ASDIRECTED Temazepam [Restoril] Med 12/18/17 07:26 Active 15 mg PO BEDTIME PRN atorvaSTATin [Lipitor] Med 12/18/17 21:00 Active 20 mg PO BEDTIME Sequential Compression Device [OM.PC] Per Unit Routine Oth 12/18/17 07:28 Ordered Resuscitation Status Routine Resus Stat 12/18/17 07:26 Ordered Medication Orders Acetaminophen (Tylenol) 650 mg PO Q4H PRN PRN Reason: Pain (Mild 1-3)/fever Aspirin (Halfprin) 81 mg PO DAILY [facility] Atorvastatin Calcium (Lipitor) 20 mg PO BEDTIME [facility] Carvedilol (Coreg) 6.25 mg PO BID [facility] Clopidogrel Bisulfate (Plavix) 75 mg PO DAILY [facility] Duloxetine HCl (Cymbalta) 30 mg PO BID [facility] Ferrous Sulfate (Ferrous Sulfate) 1 mg PO DAILY [facility] Heparin Sodium (Porcine) (Heparin Sodium) 5,000 units SUBCUT Q12H YVONNE Last Admin: 12/18/17 07:51 Dose: 5,000 units Sodium Chloride (Normal Saline) 1,000 mls @ 125 mls/hr IV STAT YVONNE Last Admin: 12/18/17 04:02 Dose: 125 mls/hr Sodium Chloride (Normal Saline) 1,000 mls @ 100 mls/hr IV ASDIRECTED YVONNE Insulin Aspart (Novolog) 0 unit SUBCUT TIDAC YVONNE PRN Reason: Protocol Levothyroxine Sodium (Synthroid) 50 mcg PO ASDIRECTED YVONNE Lisinopril (Prinivil) 5 mg PO BEDTIME YVONNE Morphine Sulfate (Morphine) 2 mg IVPUSH Q2H PRN PRN Reason: Pain (severe 7-10) Stop: 12/19/17 07:30 Nitroglycerin (Nitrostat) 0.4 mg SL ASDIRECTED PRN PRN Reason: Chest Pain Ondansetron HCl (Zofran Odt) 4 mg PO Q4H PRN PRN Reason: nausea, able to take PO Ondansetron HCl (Zofran) 4 mg IVPUSH Q4H PRN PRN Reason: Nausea Pantoprazole Sodium (Protonix) 40 mg PO DAILY YVONNE Temazepam (Restoril) 15 mg PO BEDTIME PRN PRN Reason: Sleep Assessment/Plan Comment:: 77-year-old female admitted 12/18/17 for hyponatremia and generalized weakness with past medical history of CAD with stent 4 on Plavix, hypertension, hyperlipidemia, hypothyroidism type 2 diabetes, history of ovarian and breast cancer in remission. Hyponatremia: Serum osmolality low at 262. As per patient no recent GI losses. We'll recheck TSH as patient is hypothyroid. 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 With clinical correction of 4-6 mEq per 24 hours. This also could be secondary to recent surgery from her CAD with stents. She may have a component of heart failure given her history of CAD. We' ll consider echocardiogram. Hemoccult as patient reports bloody stool while in [place] but did receive colonoscopy which was unremarkable. Will monitor closely. CAD 4 on Plavix: Recent heart cath on 12/08/17 placing as per patient 4 stents. She did have elevated troponin but has been trending down since admission at [facility]. Will trend troponin every 6 hours to make sure that this trend continues. Troponin 0.4 in ED. Hypertension: Was hypotensive in the emergency department now normotensive. Will restart home medications as tolerated. Hyperlipidemia: Currently stable will restart home meds. Hypothyroidism: As above will recheck TSH as may be a cause for hyponatremia. We 'll continue her home levothyroxine and adjust as needed. Type 2 diabetes: Patient takes only metformin at home. We'll place on insulin sliding scale low. History of ovarian and breast cancer in remission: In remission however should keep this consideration if she continues to have unexplained hyponatremia. VTE proph: SCD, Heparin Dispo: 1-2 days.
[2017-12-18] MEDS: Insulin Aspart 100 Units/ML 3 ML Pen SUBCUT SCH ×2 (12:13→16:20)
[2017-12-18] MEDS ORDERED: Calcium Carbonate 500 MG Tab.Chew PO ONE (14:45)
--- NOTE | 2017-12-18 16:21 | CT ---
EXAM DATE: 12/18/17 PATIENT'S AGE: 77 Patient: JESI GOODMAN Facility: [place], [place] Site . Site : [id number] Study: CT Head WO CONT-12/18/2017 4:32:40 AM Ordering Physician: Sorin Ochoa Final Report: INDICATION: Patient states dizzy and weak starting this morning TECHNIQUE: CT Head without i.v. contrast. CONTRAST: None COMPARISON: None FINDINGS: CSF spaces: The ventricles are normal for age. Brain: No evidence of mass, acute infarction or hemorrhage is seen. No mass- effect or midline shift is seen. The brain parenchyma is otherwise normal in appearance with preservation of the kee-white matter junction. Calvarium: The visualized paranasal sinuses are well aerated. Trace right mastoid effusion is noted. The visualized orbits are grossly unremarkable. The calvarium is unremarkable in appearance with no fractures identified. IMPRESSION: 1. No evidence of acute infarction, intracranial hemorrhage, or mass-effect seen. Dictated by Boston Martinez MD @ 12/18/2017 4:35:37 AM Dictated by: Boston Martinez MD @ 12/18/2017 04:35:40 (Electronic Signature) Report Signed by Proxy. SORAYA
--- NOTE | 2017-12-18 16:21 | CR ---
EXAM DATE: 12/18/17 PATIENT'S AGE: 77 Patient: JESI GOODMAN Facility: [place], [place] Site . Site : 1940 Study: XRay Chest [id number]/25/2018 4:29:31 AM Ordering Physician: Sorin Ochoa Final Report: INDICATION: Patient states weakness, dizzy starting this morning TECHNIQUE: Chest radiograph 2 views COMPARISON: 12/08/2017 FINDINGS: Mediastinum: New mild cardiomegaly is noted. The mediastinum is normal in appearance. Moderate atherosclerotic calcifications are noted in the coronary arteries. Lungs: Both lungs are unremarkable in appearance. No sign of pleural effusion seen. No pneumothorax is identified. Bones and soft tissue: Old, healed left posterior 6th rib fracture is seen. Cephalad migration of the right humeral head is noted, likely due to rotator cuff atrophy and/or tear. IMPRESSION: 1. New mild cardiomegaly is noted. Dictated by Boston Martinez MD @ 12/18/2017 4:31:14 AM Dictated by: Boston Martinez MD @ 12/18/2017 04:31:19 (Electronic Signature) Report Signed by Proxy. SORAYA
[2017-12-18] MEDS: Lisinopril 5 MG Tab PO SCH (22:01)
[2017-12-18] MEDS: atorvaSTATin 20 MG Tab PO SCH (22:02)
[2017-12-19 04:56] LABS: CHLORIDE,CL 107 mmol/L (98-110); SODIUM,NA 136 mmol/L (136-146)
[2017-12-19] MEDS: Insulin Aspart 100 Units/ML 3 ML Pen SUBCUT SCH ×3 (06:50→18:38)
[2017-12-19] MEDS: Heparin Sodium 5,000 Units/ML Vial SUBCUT SCH ×2 (06:57→18:37)
[2017-12-19] MEDS ORDERED: Magnesium Sulfate/Water 4 GM in Premix Bag 1 BAG IV ONE (08:02)
[2017-12-19] MEDS: Aspirin 81 MG Tab.EC PO SCH (08:26)
[2017-12-19] MEDS: Clopidogrel 75 MG Tab PO SCH (08:26)
[2017-12-19] MEDS: Ferrous Sulfate 325 MG Tab PO SCH (08:26)
[2017-12-19] MEDS: Carvedilol 6.25 MG Tab PO SCH ×2 (08:26→20:27)
[2017-12-19] MEDS: Pantoprazole 40 MG Tab.CR PO SCH (08:26)
[2017-12-19] MEDS: DULoxetine 30 MG Cap PO SCH ×2 (08:26→20:27)
--- NOTE | 2017-12-19 14:11 | PCM.PN ---
- General Info Date of Service: 12/19/17 Subjective Update: Patient states that she feels a lot better today. Denies any feeling of weakness , dizziness, chest pain, palpitations, numbness or tingling. - Review of Systems General: Reports: Other (See history of present illness) - Patient Data Vitals - Most Recent: Last Vital Signs Temp 36.2 C 12/19/17 12:00 Pulse 73 12/19/17 12:00 Resp 16 12/19/17 12:00 BP 101/47 L 12/19/17 12:00 Pulse Ox 93 L 12/19/17 12:00 Weight - Most Recent: 58.266 kg I&O - Last 24 Hours: Intake & Output 12/18/17 12/19/17 12/19/17 22:59 06:59 14:59 Intake Total 1126 200 100 Output Total 350 1700 Balance 776 -1500 100 Lab Results Last 24 Hours: Laboratory Results - last 24 hr 12/18/17 12/18/17 12/18/17 Range/Units 15:11 15:11 16:09 WBC (4.0-11.0) K/uL RBC (4.30-5.90) M/uL Hgb (12.0-16.0) g/dL Hct (36.0-46.0) % MCV (80.0-98.0) fL MCH (27.0-32.0) pg MCHC (31.0-37.0) g/dL RDW Std Deviation (28.0-62.0) fl RDW Coeff of Inderjit (11.0-15.0) % Plt Count (150-400) K/uL MPV (7.40-12.00) fL Neut % (Auto) (48.0-80.0) % Lymph % (Auto) (16.0-40.0) % Valencia % (Auto) (0.0-15.0) % Eos % (Auto) (0.0-7.0) % Baso % (Auto) (0.0-1.5) % Neut # (Auto) (1.4-5.7) K/uL Lymph # (Auto) (0.6-2.4) K/uL Valencia # (Auto) (0.0-0.8) K/uL Eos # (Auto) (0.0-0.7) K/uL Baso # (Auto) (0.0-0.1) K/uL Nucleated RBC % /100WBC Nucleated RBCs # K/uL Sodium 129 L (136-146) mmol/L Potassium 4.0 (3.5-5.1) mmol/L Chloride 100 (98-110) mmol/L Carbon Dioxide 20 L (21-31) mmol/L BUN 11 (6.0-23.0) mg/dL Creatinine 1.1 (0.6-1.5) mg/dL Est Cr Clr Drug Dosing 33.34 mL/min Estimated GFR (MDRD) 48.4 ml/min Glucose 118 H (60-110) mg/dL POC Glucose 146 H (60-110) mg/dL Calcium 8.8 (8.8-10.8) mg/dL Phosphorus (2.4-4.7) mg/dL Magnesium (1.5-2.3) mEq/L Troponin I 0.32 H* (0.0-0.29) NG/ML Ur Random Sodium mmol/L 12/18/17 12/19/17 12/19/17 Range/Units 20:12 04:24 04:24 WBC 6.38 (4.0-11.0) K/uL RBC 3.39 L (4.30-5.90) M/uL Hgb 9.8 L (12.0-16.0) g/dL Hct 28.4 L (36.0-46.0) % MCV 83.8 (80.0-98.0) fL MCH 28.9 (27.0-32.0) pg MCHC 34.5 (31.0-37.0) g/dL RDW Std Deviation 43.3 (28.0-62.0) fl RDW Coeff of Inderjit 14 (11.0-15.0) % Plt Count 337 (150-400) K/uL MPV 7.70 (7.40-12.00) fL Neut % (Auto) 46.7 L (48.0-80.0) % Lymph % (Auto) 37.6 (16.0-40.0) % Valencia % (Auto) 11.1 (0.0-15.0) % Eos % (Auto) 4.1 (0.0-7.0) % Baso % (Auto) 0.5 (0.0-1.5) % Neut # (Auto) 3.0 (1.4-5.7) K/uL Lymph # (Auto) 2.4 (0.6-2.4) K/uL Valencia # (Auto) 0.7 (0.0-0.8) K/uL Eos # (Auto) 0.3 (0.0-0.7) K/uL Baso # (Auto) 0.0 (0.0-0.1) K/uL Nucleated RBC % 0.0 /100WBC Nucleated RBCs # 0 K/uL Sodium 131 L (136-146) mmol/L Potassium 3.9 (3.5-5.1) mmol/L Chloride 102 (98-110) mmol/L Carbon Dioxide 20 L (21-31) mmol/L BUN 10 (6.0-23.0) mg/dL Creatinine 1.1 (0.6-1.5) mg/dL Est Cr Clr Drug Dosing 33.34 mL/min Estimated GFR (MDRD) 48.4 ml/min Glucose 153 H (60-110) mg/dL POC Glucose (60-110) mg/dL Calcium 8.8 (8.8-10.8) mg/dL Phosphorus 3.9 (2.4-4.7) mg/dL Magnesium 1.3 L (1.5-2.3) mEq/L Troponin I (0.0-0.29) NG/ML Ur Random Sodium mmol/L 12/19/17 12/19/17 12/19/17 Range/Units 04:24 06:30 10:00 WBC (4.0-11.0) K/uL RBC (4.30-5.90) M/uL Hgb (12.0-16.0) g/dL Hct (36.0-46.0) % MCV (80.0-98.0) fL MCH (27.0-32.0) pg MCHC (31.0-37.0) g/dL RDW Std Deviation (28.0-62.0) fl RDW Coeff of Inderjit (11.0-15.0) % Plt Count (150-400) K/uL MPV (7.40-12.00) fL Neut % (Auto) (48.0-80.0) % Lymph % (Auto) (16.0-40.0) % Valencia % (Auto) (0.0-15.0) % Eos % (Auto) (0.0-7.0) % Baso % (Auto) (0.0-1.5) % Neut # (Auto) (1.4-5.7) K/uL Lymph # (Auto) (0.6-2.4) K/uL Valencia # (Auto) (0.0-0.8) K/uL Eos # (Auto) (0.0-0.7) K/uL Baso # (Auto) (0.0-0.1) K/uL Nucleated RBC % /100WBC Nucleated RBCs # K/uL Sodium 136 (136-146) mmol/L Potassium 4.4 (3.5-5.1) mmol/L Chloride 107 (98-110) mmol/L Carbon Dioxide 20 L (21-31) mmol/L BUN 9 (6.0-23.0) mg/dL Creatinine 0.9 (0.6-1.5) mg/dL Est Cr Clr Drug Dosing 40.75 mL/min Estimated GFR (MDRD) > 60.0 ml/min Glucose 128 H (60-110) mg/dL POC Glucose 141 H (60-110) mg/dL Calcium 9.0 (8.8-10.8) mg/dL Phosphorus (2.4-4.7) mg/dL Magnesium (1.5-2.3) mEq/L Troponin I (0.0-0.29) NG/ML Ur Random Sodium 100.0 mmol/L 12/19/17 Range/Units 11:27 WBC (4.0-11.0) K/uL RBC (4.30-5.90) M/uL Hgb (12.0-16.0) g/dL Hct (36.0-46.0) % MCV (80.0-98.0) fL MCH (27.0-32.0) pg MCHC (31.0-37.0) g/dL RDW Std Deviation (28.0-62.0) fl RDW Coeff of Inderjit (11.0-15.0) % Plt Count (150-400) K/uL MPV (7.40-12.00) fL Neut % (Auto) (48.0-80.0) % Lymph % (Auto) (16.0-40.0) % Valencia % (Auto) (0.0-15.0) % Eos % (Auto) (0.0-7.0) % Baso % (Auto) (0.0-1.5) % Neut # (Auto) (1.4-5.7) K/uL Lymph # (Auto) (0.6-2.4) K/uL Valencia # (Auto) (0.0-0.8) K/uL Eos # (Auto) (0.0-0.7) K/uL Baso # (Auto) (0.0-0.1) K/uL Nucleated RBC % /100WBC Nucleated RBCs # K/uL Sodium (136-146) mmol/L Potassium (3.5-5.1) mmol/L Chloride (98-110) mmol/L Carbon Dioxide (21-31) mmol/L BUN (6.0-23.0) mg/dL Creatinine (0.6-1.5) mg/dL Est Cr Clr Drug Dosing mL/min Estimated GFR (MDRD) ml/min Glucose (60-110) mg/dL POC Glucose 269 H (60-110) mg/dL Calcium (8.8-10.8) mg/dL Phosphorus (2.4-4.7) mg/dL Magnesium (1.5-2.3) mEq/L Troponin I (0.0-0.29) NG/ML Ur Random Sodium mmol/L Med Orders - Current: Current Medications Acetaminophen (Tylenol) 650 mg PO Q4H PRN PRN Reason: Pain (Mild 1-3)/fever Aspirin (Halfprin) 81 mg PO DAILY [facility] Last Admin: 12/19/17 08:26 Dose: 81 mg Atorvastatin Calcium (Lipitor) 20 mg PO BEDTIME [facility] Last Admin: 12/18/17 22:02 Dose: 20 mg Carvedilol (Coreg) 6.25 mg PO BID [facility] Last Admin: 12/19/17 08:26 Dose: Not Given Clopidogrel Bisulfate (Plavix) 75 mg PO DAILY [facility] Last Admin: 12/19/17 08:26 Dose: 75 mg Duloxetine HCl (Cymbalta) 30 mg PO BID [facility] Last Admin: 12/19/17 08:26 Dose: 30 mg Ferrous Sulfate (Ferrous Sulfate) 325 mg PO DAILY [facility] Last Admin: 12/19/17 08:26 Dose: 325 mg Heparin Sodium (Porcine) (Heparin Sodium) 5,000 units SUBCUT Q12H [facility] Last Admin: 12/19/17 06:57 Dose: 5,000 units Insulin Aspart (Novolog) 0 unit SUBCUT TIDAC [facility] PRN Reason: Protocol Last Admin: 12/19/17 11:52 Dose: 3 unit Levothyroxine Sodium (Synthroid) 50 mcg PO ASDIRECTED [facility] Last Admin: 12/19/17 07:49 Dose: 50 mcg Lisinopril (Prinivil) 5 mg PO BEDTIME [facility] Last Admin: 12/18/17 22:01 Dose: 5 mg Nitroglycerin (Nitrostat) 0.4 mg SL ASDIRECTED PRN PRN Reason: Chest Pain Ondansetron HCl (Zofran Odt) 4 mg PO Q4H PRN PRN Reason: nausea, able to take PO Ondansetron HCl (Zofran) 4 mg IVPUSH Q4H PRN PRN Reason: Nausea Pantoprazole Sodium (Protonix) 40 mg PO DAILY [facility] Last Admin: 12/19/17 08:26 Dose: 40 mg Temazepam (Restoril) 15 mg PO BEDTIME PRN PRN Reason: Sleep Discontinued Medications Aspirin (Aspirin) 324 mg PO ONETIME ONE Stop: 12/18/17 04:52 Last Admin: 12/18/17 04:55 Dose: Not Given Calcium Carbonate/Glycine (Tums) 1,000 mg PO ONETIME ONE Stop: 12/18/17 14:46 Last Admin: 12/18/17 15:16 Dose: 1,000 mg Ferrous Sulfate (Ferrous Sulfate) 1 mg PO DAILY [facility] Sodium Chloride (Normal Saline) 1,000 mls @ 125 mls/hr IV STAT [facility] Last Infusion: 12/18/17 09:00 Dose: 100 mls/hr Sodium Chloride (Normal Saline) 1,000 mls @ 50 mls/hr IV ASDIRECTED [facility] Last Admin: 12/18/17 16:01 Dose: 100 mls/hr Magnesium Sulfate 4 gm/ Premix 100 mls @ 50 mls/hr IV ONETIME ONE Stop: 12/19/17 10:01 Last Admin: 12/19/17 08:23 Dose: 50 mls/hr Ketorolac Tromethamine (Toradol) 30 mg IV NOW STA Stop: 12/18/17 07:27 Last Admin: 12/18/17 07:46 Dose: 30 mg Morphine Sulfate (Morphine) 2 mg IVPUSH Q2H PRN PRN Reason: Pain (severe 7-10) Stop: 12/19/17 07:30 - Exam General: Alert, Oriented, Cooperative HEENT: Pupils Equal, Pupils Reactive Neck: Supple Lungs: Clear to Auscultation, Normal Respiratory Effort Cardiovascular: Regular Rate GI/Abdominal Exam: Normal Bowel Sounds, Soft Extremities: No Pedal Edema, Normal Capillary Refill Peripheral Pulses: 3+: Posterior Tibial (L), Posterior Tibial (R) Skin: Warm, Dry Psy/Mental Status: Alert, Normal Affect, Normal Mood - Problem List Review Problem List Initiated/Reviewed/Updated: Yes - Plan Plan:: 77-year-old female admitted 12/18/17 for hyponatremia and generalized weakness with past medical history of CAD with stent 4 on Plavix, hypertension, hyperlipidemia, hypothyroidism type 2 diabetes, history of ovarian and breast cancer in remission. Hyponatremia: Serum osmolality low at 262. As per patient no recent GI losses. We'll recheck TSH as patient is hypothyroid. 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 With clinical correction of 4-6 mEq per 24 hours. This also could be secondary to recent surgery from her CAD with stents. She may have a component of heart failure given her history of CAD. We' ll consider echocardiogram. Hemoccult as patient reports bloody stool while in [place] but did receive colonoscopy which was unremarkable. Will monitor closely. CAD 4 on Plavix: Recent heart cath on 12/08/17 placing as per patient 4 stents. She did have elevated troponin but has been trending down since admission at . Will trend troponin every 6 hours to make sure that this trend continues. Troponin 0.4 in ED. Hypertension: Was hypotensive in the emergency department now normotensive. Will restart home medications as tolerated. Hyperlipidemia: Currently stable will restart home meds. Hypothyroidism: As above will recheck TSH as may be a cause for hyponatremia. We 'll continue her home levothyroxine and adjust as needed. Type 2 diabetes: Patient takes only metformin at home. We'll place on insulin sliding scale low. History of ovarian and breast cancer in remission: In remission however should keep this consideration if she continues to have unexplained hyponatremia. VTE proph: SCD, Heparin Dispo: 1-2 days. Assessment: #1. Hyponatremia resolved #2. History of coronary artery disease with stent placement #3. Hyperlipidemia #4. Hypothyroidism #5. Hypovolemic hyponatremia Plan: #1. Record of echocardiogram obtained in [place] was reviewed which is rather unremarkable. #2. Her urine osmolality is 100 mEQ/l. Her serum osmolality is 260 MoSM/kg. this indicates hypovolemic hyponatremia. Given the combination of hypotension, and a reassuring echocardiogram, this may be an endocrine etiology like adrenal insufficiency. We will get an a.m. cortisol and see what that shows. Medication review shows that she's not on any diuretics indicating that this is most likely secondary to adrenal insufficiency.
--- NOTE | 2017-12-19 15:33 | PCM.SN ---
- Free Text/Narrative Note: Echocardiogram obtained from [facility] 12/09/17: 1. Normal chamber sizes. 2. Left ventricular hypertrophy with normal contractility. 3. Doppler study showed evidence of decreased left ventricular compliance. 4. LVH 65%
[2017-12-19] MEDS: Lisinopril 5 MG Tab PO SCH (20:27)
[2017-12-19] MEDS: atorvaSTATin 20 MG Tab PO SCH (20:27)
[2017-12-20] MEDS: Acetaminophen 325 MG Tab PO PRN ×2 (02:06→09:02)
[2017-12-20 06:46] LABS: CHLORIDE,CL 104 mmol/L (98-110); SODIUM,NA 133 mmol/L (136-146)
[2017-12-20] MEDS: Insulin Aspart 100 Units/ML 3 ML Pen SUBCUT SCH ×3 (06:49→17:01)
[2017-12-20] MEDS: Heparin Sodium 5,000 Units/ML Vial SUBCUT SCH ×2 (06:54→18:42)
[2017-12-20] MEDS: Levothyroxine 50 MCG Tab PO SCH (06:55)
--- NOTE | 2017-12-20 08:22 | PCM.PN ---
- General Info Date of Service: 12/20/17 Admission Dx/Problem (Free Text): Admission Diagnosis/Problem Admission Diagnosis/Problem Hyponatremia Subjective Update: Doing well this morning. Having some constipation but otherwise feeling good. Good appetite and taking in fluids appropriately. Denies any chest pain, palpitations, shortness breath, syncopal episodes, focal neurologic episodes. - Review of Systems General: Denies: Fever, Weakness, Fatigue HEENT: Denies: Headaches, Visual Changes Pulmonary: Denies: Shortness of Breath, Hemoptysis Cardiovascular: Denies: Chest Pain, Palpitations, Edema Gastrointestinal: Reports: Constipation. Denies: Abdominal Pain, Diarrhea, Nausea, Vomiting Genitourinary: Denies: Dysuria, Hematuria Musculoskeletal: Denies: Neck Pain, Leg Pain Skin: Denies: Cyanosis Neurological: Denies: Confusion, Dizziness, Headache Psychiatric: Denies: Confusion - Patient Data Vitals - Most Recent: Last Vital Signs Temp 98.7 F 12/20/17 04:00 Pulse 68 12/20/17 04:00 Resp 15 12/20/17 04:00 BP 103/51 L 12/20/17 04:00 Pulse Ox 93 L 12/20/17 04:00 Weight - Most Recent: 58.266 kg I&O - Last 24 Hours: Intake & Output 12/19/17 12/20/17 12/20/17 22:59 06:59 14:59 Intake Total 400 200 Output Total 1300 1100 Balance -900 -900 Lab Results Last 24 Hours: Laboratory Results - last 24 hr 12/19/17 12/19/17 12/19/17 Range/Units 10:00 11:27 16:55 WBC (4.0-11.0) K/uL RBC (4.30-5.90) M/uL Hgb (12.0-16.0) g/dL Hct (36.0-46.0) % MCV (80.0-98.0) fL MCH (27.0-32.0) pg MCHC (31.0-37.0) g/dL RDW Std Deviation (28.0-62.0) fl RDW Coeff of Inderjit (11.0-15.0) % Plt Count (150-400) K/uL MPV (7.40-12.00) fL Neut % (Auto) (48.0-80.0) % Lymph % (Auto) (16.0-40.0) % [place] % (Auto) (0.0-15.0) % Eos % (Auto) (0.0-7.0) % Baso % (Auto) (0.0-1.5) % Neut # (Auto) (1.4-5.7) K/uL Lymph # (Auto) (0.6-2.4) K/uL [place] # (Auto) (0.0-0.8) K/uL Eos # (Auto) (0.0-0.7) K/uL Baso # (Auto) (0.0-0.1) K/uL Nucleated RBC % /100WBC Nucleated RBCs # K/uL Sodium (136-146) mmol/L Potassium (3.5-5.1) mmol/L Chloride (98-110) mmol/L Carbon Dioxide (21-31) mmol/L BUN (6.0-23.0) mg/dL Creatinine (0.6-1.5) mg/dL Est Cr Clr Drug Dosing mL/min Estimated GFR (MDRD) ml/min Glucose (60-110) mg/dL POC Glucose 269 H 118 H (60-110) mg/dL Calcium (8.8-10.8) mg/dL Cortisol (7.9-17.3) ug/dL Ur Random Sodium 100.0 mmol/L 12/20/17 12/20/17 12/20/17 Range/Units 06:06 06:10 06:10 WBC 6.61 (4.0-11.0) K/uL RBC 3.53 L (4.30-5.90) M/uL Hgb 10.3 L (12.0-16.0) g/dL Hct 30.3 L (36.0-46.0) % MCV 85.8 (80.0-98.0) fL MCH 29.2 (27.0-32.0) pg MCHC 34.0 (31.0-37.0) g/dL RDW Std Deviation 45.6 (28.0-62.0) fl RDW Coeff of Inderjit 15 (11.0-15.0) % Plt Count 337 (150-400) K/uL MPV 7.90 (7.40-12.00) fL Neut % (Auto) 44.9 L (48.0-80.0) % Lymph % (Auto) 40.5 H (16.0-40.0) % [place] % (Auto) 9.4 (0.0-15.0) % Eos % (Auto) 4.7 (0.0-7.0) % Baso % (Auto) 0.5 (0.0-1.5) % Neut # (Auto) 3.0 (1.4-5.7) K/uL Lymph # (Auto) 2.7 H (0.6-2.4) K/uL [place] # (Auto) 0.6 (0.0-0.8) K/uL Eos # (Auto) 0.3 (0.0-0.7) K/uL Baso # (Auto) 0.0 (0.0-0.1) K/uL Nucleated RBC % 0.0 /100WBC Nucleated RBCs # 0 K/uL Sodium 133 L (136-146) mmol/L Potassium 4.2 (3.5-5.1) mmol/L Chloride 104 (98-110) mmol/L Carbon Dioxide 21 (21-31) mmol/L BUN 11 (6.0-23.0) mg/dL Creatinine 0.9 (0.6-1.5) mg/dL Est Cr Clr Drug Dosing 40.80 mL/min Estimated GFR (MDRD) > 60.0 ml/min Glucose 132 H (60-110) mg/dL POC Glucose 139 H (60-110) mg/dL Calcium 8.9 (8.8-10.8) mg/dL Cortisol (7.9-17.3) ug/dL Ur Random Sodium mmol/L 12/20/17 Range/Units 06:10 WBC (4.0-11.0) K/uL RBC (4.30-5.90) M/uL Hgb (12.0-16.0) g/dL Hct (36.0-46.0) % MCV (80.0-98.0) fL MCH (27.0-32.0) pg MCHC (31.0-37.0) g/dL RDW Std Deviation (28.0-62.0) fl RDW Coeff of Inderjit (11.0-15.0) % Plt Count (150-400) K/uL MPV (7.40-12.00) fL Neut % (Auto) (48.0-80.0) % Lymph % (Auto) (16.0-40.0) % [place] % (Auto) (0.0-15.0) % Eos % (Auto) (0.0-7.0) % Baso % (Auto) (0.0-1.5) % Neut # (Auto) (1.4-5.7) K/uL Lymph # (Auto) (0.6-2.4) K/uL [place] # (Auto) (0.0-0.8) K/uL Eos # (Auto) (0.0-0.7) K/uL Baso # (Auto) (0.0-0.1) K/uL Nucleated RBC % /100WBC Nucleated RBCs # K/uL Sodium (136-146) mmol/L Potassium (3.5-5.1) mmol/L Chloride (98-110) mmol/L Carbon Dioxide (21-31) mmol/L BUN (6.0-23.0) mg/dL Creatinine (0.6-1.5) mg/dL Est Cr Clr Drug Dosing mL/min Estimated GFR (MDRD) ml/min Glucose (60-110) mg/dL POC Glucose (60-110) mg/dL Calcium (8.8-10.8) mg/dL Cortisol 5.7 L (7.9-17.3) ug/dL Ur Random Sodium mmol/L [place] Results Last 24 Hours: Microbiology 12/18/17 10:10 Urine Culture - Final Urine, Clean Catch MIXED BRY 10,000-100,000 CFU/ML Med Orders - Current: Current Medications Acetaminophen (Tylenol) 650 mg PO Q4H PRN PRN Reason: Pain (Mild 1-3)/fever Last Admin: 12/20/17 02:06 Dose: 650 mg Aspirin (Halfprin) 81 mg PO DAILY [facility] Last Admin: 12/19/17 08:26 Dose: 81 mg Atorvastatin Calcium (Lipitor) 20 mg PO BEDTIME [facility] Last Admin: 12/19/17 20:27 Dose: 20 mg Carvedilol (Coreg) 6.25 mg PO BID [facility] Last Admin: 12/19/17 20:27 Dose: 6.25 mg Clopidogrel Bisulfate (Plavix) 75 mg PO DAILY [facility] Last Admin: 12/19/17 08:26 Dose: 75 mg Duloxetine HCl (Cymbalta) 30 mg PO BID [facility] Last Admin: 12/19/17 20:27 Dose: 30 mg Ferrous Sulfate (Ferrous Sulfate) 325 mg PO DAILY [facility] Last Admin: 12/19/17 08:26 Dose: 325 mg Heparin Sodium (Porcine) (Heparin Sodium) 5,000 units SUBCUT Q12H [facility] Last Admin: 12/20/17 06:54 Dose: 5,000 units Insulin Aspart (Novolog) 0 unit SUBCUT TIDAC [facility] PRN Reason: Protocol Last Admin: 12/20/17 06:49 Dose: Not Given Levothyroxine Sodium (Synthroid) 50 mcg PO ACBREAKFAST [facility] Last Admin: 12/20/17 06:55 Dose: 50 mcg Lisinopril (Prinivil) 5 mg PO BEDTIME [facility] Last Admin: 12/19/17 20:27 Dose: 5 mg Nitroglycerin (Nitrostat) 0.4 mg SL ASDIRECTED PRN PRN Reason: Chest Pain Ondansetron HCl (Zofran Odt) 4 mg PO Q4H PRN PRN Reason: nausea, able to take PO Ondansetron HCl (Zofran) 4 mg IVPUSH Q4H PRN PRN Reason: Nausea Pantoprazole Sodium (Protonix) 40 mg PO DAILY [facility] Last Admin: 12/19/17 08:26 Dose: 40 mg Temazepam (Restoril) 15 mg PO BEDTIME PRN PRN Reason: Sleep Discontinued Medications Aspirin (Aspirin) 324 mg PO ONETIME ONE Stop: 12/18/17 04:52 Last Admin: 12/18/17 04:55 Dose: Not Given Calcium Carbonate/Glycine (Tums) 1,000 mg PO ONETIME ONE Stop: 12/18/17 14:46 Last Admin: 12/18/17 15:16 Dose: 1,000 mg Ferrous Sulfate (Ferrous Sulfate) 1 mg PO DAILY [facility] Sodium Chloride (Normal Saline) 1,000 mls @ 125 mls/hr IV STAT [facility] Last Infusion: 12/18/17 09:00 Dose: 100 mls/hr Sodium Chloride (Normal Saline) 1,000 mls @ 50 mls/hr IV ASDIRECTED [facility] Last Admin: 12/18/17 16:01 Dose: 100 mls/hr Magnesium Sulfate 4 gm/ Premix 100 mls @ 50 mls/hr IV ONETIME ONE Stop: 12/19/17 10:01 Last Admin: 12/19/17 08:23 Dose: 50 mls/hr Ketorolac Tromethamine (Toradol) 30 mg IV NOW STA Stop: 12/18/17 07:27 Last Admin: 12/18/17 07:46 Dose: 30 mg Levothyroxine Sodium (Synthroid) 50 mcg PO ASDIRECTED [facility] Last Admin: 12/19/17 07:49 Dose: 50 mcg Morphine Sulfate (Morphine) 2 mg IVPUSH Q2H PRN PRN Reason: Pain (severe 7-10) Stop: 12/19/17 07:30 - Exam Quality Assessment: DVT Prophylaxis General: Alert, Oriented, Cooperative, No Acute Distress HEENT: Pupils Equal, Pupils Reactive, EOMI, Mucous Membr. Moist/[place] Neck: Supple Lungs: Clear to Auscultation, Normal Respiratory Effort Cardiovascular: Regular Rate, Regular Rhythm GI/Abdominal Exam: Normal Bowel Sounds, Soft, Non-Tender, No Organomegaly, No Distention Back Exam: Normal Inspection Extremities: Normal Inspection, Non-Tender, No Pedal Edema, Normal Capillary Refill Peripheral Pulses: 2+: Radial (L), Radial (R), Posterior Tibial (L), Posterior Tibial (R), Dorsalis Pedis (L), Dorsalis Pedis (R) Skin: Warm, Dry, Intact Neurological: No New Focal Deficit Psy/Mental Status: Alert, Normal Affect, Normal Mood - Problem List & Annotations (1) CAD (coronary artery disease), [place] coronary artery SNOMED Code(s): 2304131431294 Code(s): I25.10 - ATHSCL HEART DISEASE OF [place] CORONARY ARTERY W/O ANG PCTRS Status: Chronic Priority: High Current Visit: Yes Qualifiers: [place] vs. transplanted heart: [place] heart Associated angina: angina presence unspecified Qualified Code(s): I25.10 - Atherosclerotic heart disease of [place] coronary artery without angina pectoris (2) History of heart artery stent SNOMED Code(s): 693001508 Code(s): Z95.5 - PRESENCE OF CORONARY ANGIOPLASTY IMPLANT AND GRAFT Status : Chronic Priority: High Current Visit: Yes (3) DM2 (diabetes mellitus, type 2) SNOMED Code(s): 02883460 Code(s): E11.9 - TYPE 2 DIABETES MELLITUS WITHOUT COMPLICATIONS Status: Chronic Priority: Low Current Visit: Yes Qualifiers: Diabetes mellitus complication status: without complication Diabetes mellitus [facility] insulin use: 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 Qualified Code(s): E11.9 - Type 2 diabetes mellitus without complications (4) Hyperlipidemia SNOMED Code(s): 73095996 Code(s): E78.5 - HYPERLIPIDEMIA, UNSPECIFIED Status: Chronic Priority: Low Current Visit: Yes Qualifiers: Hyperlipidemia type: unspecified Qualified Code(s): E78.5 - Hyperlipidemia , unspecified (5) Hypothyroidism SNOMED Code(s): 99695630 Code(s): E03.9 - HYPOTHYROIDISM, UNSPECIFIED Status: Chronic Priority: Medium Current Visit: Yes Qualifiers: Hypothyroidism type: unspecified Qualified Code(s): E03.9 - Hypothyroidism , unspecified (6) Hyponatremia SNOMED Code(s): 39428743 Code(s): E87.1 - HYPO-OSMOLALITY AND HYPONATREMIA Status: Acute Priority : High Current Visit: Yes (7) Hypotension SNOMED Code(s): 24952638 Code(s): I95.9 - HYPOTENSION, UNSPECIFIED Status: Resolved Priority: High Current Visit: Yes Qualifiers: Hypotension type: unspecified hypotension type Qualified Code(s): I95.9 - Hypotension, unspecified - Problem List Review Problem List Initiated/Reviewed/Updated: Yes - My Orders Last 24 Hours: My Active Orders 12/19/17 13:39 Consult to Dietary [Consult to [employer] Att[employer]] [CONS] Routine 12/20/17 07:30 Levothyroxine [Synthroid] 50 mcg PO ACBREAKFAST 12/20/17 08:11 RENIN ACTIVITY [REF] Routine 12/21/17 05:00 BMP [BASIC METABOLIC PANEL,BMP] [CHEM] DAILY 12/21/17 05:11 CBC WITH AUTO DIFF [HEME] AM 12/22/17 05:00 BMP [BASIC METABOLIC PANEL,BMP] [CHEM] DAILY 12/22/17 05:11 CBC WITH AUTO DIFF [HEME] AM - Plan Plan:: 77-year-old female admitted 12/18/17 for hyponatremia and generalized weakness with past medical history of CAD with stent 4 on Plavix, hypertension, hyperlipidemia, hypothyroidism type 2 diabetes, history of ovarian and breast cancer in remission. Hyponatremia: Serum osmolality low at 262. Urnine osmolality 100meq/l. Echocardiogram showed no signs of heart failure and combined with hypotension most like adrenal insufficiency. Cortisol low at 5.7. Will give Florinef 0.1mg /day starting this morning. Adrenal insufficiency may be secondary to recent 4 stent placement on 12/08/17 and only temporary. Will cont. to monitor closely. CAD 4 on Plavix: Recent heart cath on 12/08/17 placing as per patient 4 stents. She did have elevated troponin but trending down with serial troponins. Hypertension: Was hypotensive in the emergency department now normotensive. May become more hypertensive after start of Florinef. Will monitor closely and restart home medications as needed. Hyperlipidemia: Currently stable cont. home meds. Hypothyroidism: Stable, continue home levothyroxine. Type 2 diabetes: ISS low. History of ovarian and breast cancer in remission: In remission however should keep this in consideration with her hyponatremia. VTE proph: SCD, Heparin Dispo: 1-2 days.
[2017-12-20] MEDS: DULoxetine 30 MG Cap PO SCH ×2 (08:47→21:33)
[2017-12-20] MEDS: Pantoprazole 40 MG Tab.CR PO SCH (08:47)
[2017-12-20] MEDS: Clopidogrel 75 MG Tab PO SCH (08:47)
[2017-12-20] MEDS: Carvedilol 6.25 MG Tab PO SCH ×2 (08:47→21:34)
[2017-12-20] MEDS: Aspirin 81 MG Tab.EC PO SCH (08:47)
[2017-12-20] MEDS: Ferrous Sulfate 325 MG Tab PO SCH (08:47)
[2017-12-20] MEDS: Polyethylene Glycol 3350 Powder 17 GM Packet PO SCH ×2 (18:42→21:34)
[2017-12-20] MEDS: atorvaSTATin 20 MG Tab PO SCH (21:33)
[2017-12-20] MEDS: Lisinopril 5 MG Tab PO SCH (21:34)
[2017-12-20] MEDS ORDERED: Fludrocortisone 0.1 MG Tab PO ONE (21:34)
[2017-12-21] MEDS: Heparin Sodium 5,000 Units/ML Vial SUBCUT SCH (06:30)
[2017-12-21] MEDS: Levothyroxine 50 MCG Tab PO SCH (06:30)
[2017-12-21 06:55] LABS: CHLORIDE,CL 103 mmol/L (98-110); SODIUM,NA 133 mmol/L (136-146)
[2017-12-21] MEDS: Insulin Aspart 100 Units/ML 3 ML Pen SUBCUT SCH ×2 (06:55→12:03)
[2017-12-21] MEDS ORDERED: Fludrocortisone 0.1 MG Tab PO SCH (08:00)
[2017-12-21] MEDS: Polyethylene Glycol 3350 Powder 17 GM Packet PO SCH (08:14)
[2017-12-21] MEDS: Aspirin 81 MG Tab.EC PO SCH (08:16)
[2017-12-21] MEDS: DULoxetine 30 MG Cap PO SCH (08:17)
[2017-12-21] MEDS: Ferrous Sulfate 325 MG Tab PO SCH (08:17)
[2017-12-21] MEDS: Pantoprazole 40 MG Tab.CR PO SCH (08:17)
[2017-12-21] MEDS: Clopidogrel 75 MG Tab PO SCH (08:17)
[2017-12-21] MEDS: Carvedilol 6.25 MG Tab PO SCH (08:17)
[2017-12-21 13:07] VITALS: BP 108/53
--- NOTE | 2017-12-21 14:23 | PCM.DCSUM1 ---
Discharge Summary - Discharge Data Discharge Date: 12/21/17 Discharge Disposition: Home, Self-Care 01 Condition: Good - Patient Summary/Data Hospital Course: 77-year-old female presenting to emergency department with chief complaint of generalized weakness and an episode of hypotension at home with past medical history of CAD 4 stents on Plavix 12/08/17, hypertension, hyperlipidemia, DM 2, hypothyroidism, and history of breast and ovarian cancer in remission. She was admitted for hyponatremia with a sodium of 126 with a serum osmolality of 262., Elevated troponin at 0.44, negative flu, EKG showing normal sinus rhythm with no acute ST changes, chest x-ray showing new mild cardiomegaly, CT of the head showed no evidence of acute infarction, intracranial hemorrhage, or mass effect. She was given Iv fluids of normal saline and sodium and hypotension did improved. Today at discharge her sodium is 133. She is to follow up with [facility] tomorrow. - Discharge Plan Home Medications: Home Meds DULoxetine HCl [Duloxetine HCl] 30 mg PO BID 08/17/14 [History] Levothyroxine Sodium [Levoxyl] 50 mcg PO DAILY 08/17/14 [History] Lisinopril 5 mg PO BEDTIME 08/17/14 [History] Ramipril [Altace] 5 mg PO DAILY 08/17/14 [History] metFORMIN [Glucophage XR] 500 mg PO QAM 08/17/14 [History] Aspirin [Halfprin] 1 tab PO DAILY 02/23/15 [History] Carvedilol 6.25 mg PO BID 12/18/17 [History] Clopidogrel [Plavix] 75 mg PO DAILY 12/18/17 [History] Ferrous Fumarate 1 tab PO DAILY 12/18/17 [History] Hydrocodone/Acetaminophen [Hydrocodon-Acetaminophen 5-325] 1 each PO Q4H [History] Nitroglycerin [Nitrostat] 0.4 mg SL ASDIRECTED PRN 12/18/17 [History] Pantoprazole Sodium 40 mg PO DAILY 12/18/17 [History] atorvaSTATin [Lipitor] 20 mg PO BEDTIME 12/18/17 [History] Patient Handouts: Hyponatremia, [id number], Hypotension, [id number], Fludrocortisone tablets Referrals: Christine Martinez MD [Physician] - 12/30/17 1:00 pm - Patient Data Vitals - Most Recent: Last Vital Signs Temp 36.6 C 12/21/17 12:00 Pulse 77 12/21/17 12:00 Resp 18 12/21/17 12:00 BP 108/53 L 12/21/17 12:00 Pulse Ox 94 L 12/21/17 12:00 Weight - Most Recent: 59 kg I&O - Last 24 hours: Intake & Output 12/20/17 12/21/17 12/21/17 22:59 06:59 14:59 Intake Total 400 200 Output Total 350 800 Balance 50 -600 Lab Results - Last 24 hrs: Laboratory Results - last 24 hr 12/20/17 12/20/17 12/21/17 Range/Units 11:54 16:46 06:25 WBC 6.99 (4.0-11.0) K/uL RBC 3.65 L (4.30-5.90) M/uL Hgb 10.5 L (12.0-16.0) g/dL Hct 31.4 L (36.0-46.0) % MCV 86.0 (80.0-98.0) fL MCH 28.8 (27.0-32.0) pg MCHC 33.4 (31.0-37.0) g/dL RDW Std Deviation 45.3 (28.0-62.0) fl RDW Coeff of Inderjit 15 (11.0-15.0) % Plt Count 309 (150-400) K/uL MPV 8.00 (7.40-12.00) fL Neut % (Auto) 50.3 (48.0-80.0) % Lymph % (Auto) 35.1 (16.0-40.0) % [place] % (Auto) 9.3 (0.0-15.0) % Eos % (Auto) 4.9 (0.0-7.0) % Baso % (Auto) 0.4 (0.0-1.5) % Neut # (Auto) 3.5 (1.4-5.7) K/uL Lymph # (Auto) 2.5 H (0.6-2.4) K/uL [place] # (Auto) 0.7 (0.0-0.8) K/uL Eos # (Auto) 0.3 (0.0-0.7) K/uL Baso # (Auto) 0.0 (0.0-0.1) K/uL Nucleated RBC % 0.0 /100WBC Nucleated RBCs # 0 K/uL Sodium (136-146) mmol/L Potassium (3.5-5.1) mmol/L Chloride (98-110) mmol/L Carbon Dioxide (21-31) mmol/L BUN (6.0-23.0) mg/dL Creatinine (0.6-1.5) mg/dL Est Cr Clr Drug Dosing mL/min Estimated GFR (MDRD) ml/min Glucose (60-110) mg/dL POC Glucose 141 H 124 H (60-110) mg/dL Calcium (8.8-10.8) mg/dL 12/21/17 12/21/17 Range/Units 06:25 06:44 WBC (4.0-11.0) K/uL RBC (4.30-5.90) M/uL Hgb (12.0-16.0) g/dL Hct (36.0-46.0) % MCV (80.0-98.0) fL MCH (27.0-32.0) pg MCHC (31.0-37.0) g/dL RDW Std Deviation (28.0-62.0) fl RDW Coeff of Inderjit (11.0-15.0) % Plt Count (150-400) K/uL MPV (7.40-12.00) fL Neut % (Auto) (48.0-80.0) % Lymph % (Auto) (16.0-40.0) % [place] % (Auto) (0.0-15.0) % Eos % (Auto) (0.0-7.0) % Baso % (Auto) (0.0-1.5) % Neut # (Auto) (1.4-5.7) K/uL Lymph # (Auto) (0.6-2.4) K/uL [place] # (Auto) (0.0-0.8) K/uL Eos # (Auto) (0.0-0.7) K/uL Baso # (Auto) (0.0-0.1) K/uL Nucleated RBC % /100WBC Nucleated RBCs # K/uL Sodium 133 L (136-146) mmol/L Potassium 4.2 (3.5-5.1) mmol/L Chloride 103 (98-110) mmol/L Carbon Dioxide 21 (21-31) mmol/L BUN 12 (6.0-23.0) mg/dL Creatinine 0.8 (0.6-1.5) mg/dL Est Cr Clr Drug Dosing 45.90 mL/min Estimated GFR (MDRD) > 60.0 ml/min Glucose 133 H (60-110) mg/dL POC Glucose 131 H (60-110) mg/dL Calcium 9.1 (8.8-10.8) mg/dL ANUPAM Results - Last 24 hrs: Microbiology 12/21/17 02:22 Stool Occult Blood (ANUPAM) - Final Stool / Feces - Stool, Formed NEGATIVE OCCULT BLOOD Med Orders - Current: Current Medications Acetaminophen (Tylenol) 650 mg PO Q4H PRN PRN Reason: Pain (Mild 1-3)/fever Last Admin: 12/20/17 09:02 Dose: 650 mg Aspirin (Halfprin) 81 mg PO DAILY [facility] Last Admin: 12/21/17 08:16 Dose: 81 mg Atorvastatin Calcium (Lipitor) 20 mg PO BEDTIME [facility] Last Admin: 12/20/17 21:33 Dose: 20 mg Carvedilol (Coreg) 6.25 mg PO BID [facility] Last Admin: 12/21/17 08:17 Dose: 6.25 mg Clopidogrel Bisulfate (Plavix) 75 mg PO DAILY [facility] Last Admin: 12/21/17 08:17 Dose: 75 mg Duloxetine HCl (Cymbalta) 30 mg PO BID [facility] Last Admin: 12/21/17 08:17 Dose: 30 mg Ferrous Sulfate (Ferrous Sulfate) 325 mg PO DAILY [facility] Last Admin: 12/21/17 08:17 Dose: 325 mg Fludrocortisone Acetate (Florinef) 0.1 mg PO WITHBREAKFAST [facility] Last Admin: 12/21/17 08:17 Dose: 0.1 mg Heparin Sodium (Porcine) (Heparin Sodium) 5,000 units SUBCUT Q12H [facility] Last Admin: 12/21/17 06:30 Dose: 5,000 units Insulin Aspart (Novolog) 0 unit SUBCUT TIDAC [facility] PRN Reason: Protocol Last Admin: 12/21/17 12:03 Dose: Not Given Levothyroxine Sodium (Synthroid) 50 mcg PO ACBREAKFAST [facility] Last Admin: 12/21/17 06:30 Dose: 50 mcg Lisinopril (Prinivil) 5 mg PO BEDTIME [facility] Last Admin: 12/20/17 21:34 Dose: 5 mg Nitroglycerin (Nitrostat) 0.4 mg SL ASDIRECTED PRN PRN Reason: Chest Pain Ondansetron HCl (Zofran Odt) 4 mg PO Q4H PRN PRN Reason: nausea, able to take PO Ondansetron HCl (Zofran) 4 mg IVPUSH Q4H PRN PRN Reason: Nausea Pantoprazole Sodium (Protonix) 40 mg PO DAILY [facility] Last Admin: 12/21/17 08:17 Dose: 40 mg Polyethylene Glycol (Miralax) 17 gm PO BID [facility] Last Admin: 12/21/17 08:14 Dose: 17 gm Temazepam (Restoril) 15 mg PO BEDTIME PRN PRN Reason: Sleep Discontinued Medications Aspirin (Aspirin) 324 mg PO ONETIME ONE Stop: 12/18/17 04:52 Last Admin: 12/18/17 04:55 Dose: Not Given Calcium Carbonate/Glycine (Tums) 1,000 mg PO ONETIME ONE Stop: 12/18/17 14:46 Last Admin: 12/18/17 15:16 Dose: 1,000 mg Ferrous Sulfate (Ferrous Sulfate) 1 mg PO DAILY [facility] Fludrocortisone Acetate (Florinef) 0.1 mg PO ONETIME ONE Stop: 12/20/17 21:35 Last Admin: 12/21/17 00:43 Dose: 0.1 mg Sodium Chloride (Normal Saline) 1,000 mls @ 125 mls/hr IV STAT [facility] Last Infusion: 12/18/17 09:00 Dose: 100 mls/hr Sodium Chloride (Normal Saline) 1,000 mls @ 50 mls/hr IV ASDIRECTED [facility] Last Admin: 12/18/17 16:01 Dose: 100 mls/hr Magnesium Sulfate 4 gm/ Premix 100 mls @ 50 mls/hr IV ONETIME ONE Stop: 12/19/17 10:01 Last Admin: 12/19/17 08:23 Dose: 50 mls/hr Ketorolac Tromethamine (Toradol) 30 mg IV NOW STA Stop: 12/18/17 07:27 Last Admin: 12/18/17 07:46 Dose: 30 mg Levothyroxine Sodium (Synthroid) 50 mcg PO ASDIRECTED [facility] Last Admin: 12/19/17 07:49 Dose: 50 mcg Morphine Sulfate (Morphine) 2 mg IVPUSH Q2H PRN PRN Reason: Pain (severe 7-10) Stop: 12/19/17 07:30 *Q Meaningful Use (DIS) - VTE *Q VTE Criteria *Q: - Stroke *Q Stroke Criteria *Q: - AMI *Q AMI Criteria *Q:
== END 2017-12-21 14:50 | disposition home or self-care (01) | DRG 641 ==
LOC: MW.ED 03:29 → MW.MS 05:18 → OBSVTOIN 12-20 11:51 → MW.MS 12-20 11:51
PROVIDERS: ADMIT Family Medicine; ATTEND Family Medicine
DX: E87.1 Hypo-osmolality and hyponatremia (principal); I95.9 Hypotension, unspecified; I25.10 Atherosclerotic heart disease of native coronary artery without angina pectoris; I10 Essential (primary) hypertension; E78.5 Hyperlipidemia, unspecified; E11.9 Type 2 diabetes mellitus without complications; E03.9 Hypothyroidism, unspecified; Z85.3 Personal history of malignant neoplasm of breast; Z95.5 Presence of coronary angioplasty implant and graft; Z85.43 Personal history of malignant neoplasm of ovary; Z79.899 Other long term (current) drug therapy
CPT/HCPCS: 36415 ×3; 70450; 71046; 80048 ×6; 80053; 81001; 82150; 82533; 82550; 82553; 82962 ×6; 83605; 83690; 83735; 83880; 84100; 84300; 84443; 84484 ×3; 85025 ×3; 85610; 87086; 87804 ×2; 93005; 96360; 96361; 99285; A9270 ×29; J1644 ×5; J1815; J1885; J3475; J7040 ×2; 82272; 96365; 96366; 96372; 96375; G0378

== ENCOUNTER 2018-03-23 01:28 | Emergency (ER) | payer MEDICARE, OTHER ==
[2018-03-23 02:24] LABS: CHLORIDE,CL 94 mmol/L (98-107); SODIUM,NA 129 mmol/L (136-145)
--- NOTE | 2018-03-23 03:05 | EDM.PDOC ---
ED HPI GENERAL MEDICAL PROBLEM - General Chief Complaint: Neuro Symptoms/Deficits Stated Complaint: POSSIBLE STROKE Time Seen by Provider: 03/23/18 02:04 - History of Present Illness INITIAL COMMENTS - FREE TEXT/NARRATIVE: HISTORY AND PHYSICAL: History of present illness: Patient's a 77-year-old white female with past medical history significant for hyperlipidemia hypertension coronary artery disease with stent placement who presents today with left arm and facial numbness and left facial droop she states it started approximately half hour prior to arrival she's had no shortness of breath there's been no other neurological signs or symptoms she denies prior CVA upon arrival he NIH stroke scale was measured at 3 per nursing. Patient was sent immediately to CT which was reportedly negative for acute stroke or hemorrhage and upon arrival patient states her numbness has resolved she still is noted to have some flattening of her left nasolabial fold. Review of systems: As per history of present illness and below otherwise all systems reviewed and negative. Past medical history: As per history of present illness and as reviewed below otherwise noncontributory. Surgical history: As per history of present illness and as reviewed below otherwise noncontributory. Social history: No reported history of drug or alcohol abuse. Family history: As per history of present illness and as reviewed below otherwise noncontributory. Physical exam: HEENT: Atraumatic, normocephalic, pupils reactive, negative for conjunctival pallor or scleral icterus, mucous membranes moist, throat clear, neck supple, nontender, trachea midline. Lungs: Clear to auscultation, breath sounds equal bilaterally, chest nontender. Heart: S1S2, regular, negative for clicks, rubs, or JVD. Abdomen: Soft, nondistended, nontender. Negative for masses or hepatosplenomegaly. Negative for costovertebral tenderness. Pelvis: Stable nontender. Genitourinary: Deferred. Rectal: Deferred. Extremities: Atraumatic, negative for cords or calf pain. Neurovascular unremarkable. Neuro: Awake, alert, oriented. Flattening of left nasolabial fold mild decreased sensation to light touch left face and arm Diagnostics: CBC CMP troponin PT/INR chest x-ray EKG CT brain Therapeutics: IV O2 monitor Impression: #1 CVA #2 history of coronary artery disease #3 history hypertension #4 history of hyperlipidemia Definitive disposition and diagnosis as appropriate pending reevaluation and review of above. - Related Data Allergies Allergy/AdvReac Type Severity Reaction Status Date / Time No Known Allergies Allergy Verified 03/23/18 01:50 Home Meds: Home Meds DULoxetine HCl [Duloxetine HCl] 30 mg PO BID 08/17/14 [History] Levothyroxine Sodium [Levoxyl] 50 mcg PO DAILY 08/17/14 [History] Lisinopril 5 mg PO BEDTIME 08/17/14 [History] Ramipril [Altace] 5 mg PO DAILY 08/17/14 [History] metFORMIN [Glucophage XR] 500 mg PO QAM 08/17/14 [History] Aspirin [Halfprin] 1 tab PO DAILY 02/23/15 [History] Carvedilol 6.25 mg PO BID 12/18/17 [History] Clopidogrel [Plavix] 75 mg PO DAILY 12/18/17 [History] Ferrous Fumarate 1 tab PO DAILY 12/18/17 [History] Hydrocodone/Acetaminophen [Hydrocodon-Acetaminophen 5-325] 1 each PO Q4H [History] Nitroglycerin [Nitrostat] 0.4 mg SL ASDIRECTED PRN 12/18/17 [History] Pantoprazole Sodium 40 mg PO DAILY 12/18/17 [History] atorvaSTATin [Lipitor] 20 mg PO BEDTIME 12/18/17 [History] Past Medical History - Past Health History Medical/Surgical History: Denies Medical/Surgical History HEENT History: Reports: Sinusitis Cardiovascular History: Reports: Hypertension, Stents 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: Musculoskeletal History: Reports: Arthritis Endocrine/Metabolic History: Reports: Diabetes, Type II Oncologic (Cancer) History: Reports: Breast, Ovarian Dermatologic History: Reports: None - Infectious Disease History Infectious Disease History: Reports: Chicken Pox, Shingles - Past Surgical History HEENT Surgical History: Reports: None Cardiovascular Surgical History: Reports: Carotid Stents Musculoskeletal Surgical History: Reports: Other (See Below) Other Musculoskeletal Surgeries/Procedures:: Right ankle plate and screws Oncologic Surgical History: Reports: Mastectomy Social & Family History - Family History Family Medical History: Noncontributory Cardiac: Reports: CAD, [place] Oncologic: Reports: Breast - Tobacco Use Smoking Status *Q: Never Smoker Second Hand Smoke Exposure: No - Caffeine Use Caffeine Use: Reports: Other Other Caffeine Use: decaf coffee Caffeine Use Comment: de-caf - Alcohol Use Days Per Week of Alcohol Use: 0 - Recreational Drug Use Recreational Drug Use: No Drug Use in Last 12 Months: No ED ROS GENERAL - Review of Systems Review Of Systems: ROS reveals no pertinent complaints other than HPI. ED EXAM, GENERAL - Physical Exam Exam: See Below (See dictation) Course - Vital Signs Text/Narrative:: Lengthy discussion with family regarding thrombolytics tertiary care resulted in family agreeable to transfer [facility] in light of the marked improvement in the low NIH stroke scale was not considered an option after discussion with family. Ground ambulance at this time is not available until approximately 8 AM I did offer and discuss with family care medical in transfer they declined and opted for observation emergency department while awaiting ground transfer I did discuss case with Dr. Fraga [facility] emergency room graciously accepted the patient. Last Recorded V/S: Last Vital Signs Temp 36.0 C 03/23/18 01:44 Pulse 114 H 03/23/18 01:44 Resp 15 03/23/18 01:44 BP 120/66 03/23/18 01:44 Pulse Ox 99 03/23/18 01:44 - Orders/Labs/Meds Orders: Active Orders 24 hr Category Date Time Status EKG 12 Lead [EKG Documentation Completion] [RC] STAT Care 03/23/18 01:37 Active Chest 1V Frontal [CR] Stat Exams 03/23/18 01:35 Taken Head wo Cont [CT] Stat Exams 03/23/18 01:34 Taken Labs: Laboratory Tests 03/23/18 03/23/18 03/23/18 Range/Units 01:48 01:48 01:48 WBC 10.00 (4.0-11.0) K/uL RBC 4.99 (4.30-5.90) M/uL Hgb 14.0 (12.0-16.0) g/dL Hct 40.5 (36.0-46.0) % MCV 81.2 (80.0-98.0) fL MCH 28.1 (27.0-32.0) pg MCHC 34.6 (31.0-37.0) g/dL RDW Std Deviation 41.3 (28.0-62.0) fl RDW Coeff of Inderjit 14 (11.0-15.0) % Plt Count 258 (150-400) K/uL MPV 8.30 (7.40-12.00) fL Neut % (Auto) 50.3 (48.0-80.0) % Lymph % (Auto) 34.2 (16.0-40.0) % Knott % (Auto) 12.6 (0.0-15.0) % Eos % (Auto) 2.5 (0.0-7.0) % Baso % (Auto) 0.4 (0.0-1.5) % Neut # (Auto) 5.0 (1.4-5.7) K/uL Lymph # (Auto) 3.4 H (0.6-2.4) K/uL Knott # (Auto) 1.3 H (0.0-0.8) K/uL Eos # (Auto) 0.3 (0.0-0.7) K/uL Baso # (Auto) 0.0 (0.0-0.1) K/uL Nucleated RBC % 0.0 /100WBC Nucleated RBCs # 0 K/uL INR 1.02 Sodium 129 L (136-145) mmol/L Potassium 4.3 (3.5-5.1) mmol/L Chloride 94 L (98-107) mmol/L Carbon Dioxide 24.2 (21.0-32.0) mmol/L BUN 8 (7.0-18.0) mg/dL Creatinine 1.3 H (0.6-1.0) mg/dL Est Cr Clr Drug Dosing 28.21 mL/min Estimated GFR (MDRD) 39.9 ml/min Glucose 269 H (74-106) mg/dL POC Glucose (60-110) mg/dL Calcium 9.4 (8.5-10.1) mg/dL Total Bilirubin 0.3 (0.2-1.0) mg/dL AST 23 (15-37) IU/L ALT 30 (14-63) IU/L Alkaline Phosphatase 133 H (46-116) U/L CK-MB (CK-2) 1.3 (0-3.6) ng/mL Troponin I < 0.050 (0.000-0.056) ng/mL Total Protein 7.3 (6.4-8.2) g/dL Albumin 3.8 (3.4-5.0) g/dL Globulin 3.5 (2.0-3.5) g/dL Albumin/Globulin Ratio 1.1 L (1.3-2.8) 03/23/18 Range/Units 02:37 WBC (4.0-11.0) K/uL RBC (4.30-5.90) M/uL Hgb (12.0-16.0) g/dL Hct (36.0-46.0) % MCV (80.0-98.0) fL MCH (27.0-32.0) pg MCHC (31.0-37.0) g/dL RDW Std Deviation (28.0-62.0) fl RDW Coeff of Inderjit (11.0-15.0) % Plt Count (150-400) K/uL MPV (7.40-12.00) fL Neut % (Auto) (48.0-80.0) % Lymph % (Auto) (16.0-40.0) % Knott % (Auto) (0.0-15.0) % Eos % (Auto) (0.0-7.0) % Baso % (Auto) (0.0-1.5) % Neut # (Auto) (1.4-5.7) K/uL Lymph # (Auto) (0.6-2.4) K/uL Knott # (Auto) (0.0-0.8) K/uL Eos # (Auto) (0.0-0.7) K/uL Baso # (Auto) (0.0-0.1) K/uL Nucleated RBC % /100WBC Nucleated RBCs # K/uL INR Sodium (136-145) mmol/L Potassium (3.5-5.1) mmol/L Chloride (98-107) mmol/L Carbon Dioxide (21.0-32.0) mmol/L BUN (7.0-18.0) mg/dL Creatinine (0.6-1.0) mg/dL Est Cr Clr Drug Dosing mL/min Estimated GFR (MDRD) ml/min Glucose (74-106) mg/dL POC Glucose 271 H (60-110) mg/dL Calcium (8.5-10.1) mg/dL Total Bilirubin (0.2-1.0) mg/dL AST (15-37) IU/L ALT (14-63) IU/L Alkaline Phosphatase (46-116) U/L CK-MB (CK-2) (0-3.6) ng/mL Troponin I (0.000-0.056) ng/mL Total Protein (6.4-8.2) g/dL Albumin (3.4-5.0) g/dL Globulin (2.0-3.5) g/dL Albumin/Globulin Ratio (1.3-2.8) Departure - Departure Time of Disposition: 03:05 Disposition: DC/Tfer to Acute Hospital 02 Condition: Serious Clinical Impression: CVA (cerebral vascular accident) - Discharge Information Referrals: PCP,None [Primary Care Provider] - - My Orders Last 24 Hours: My Active Orders 03/23/18 01:34 Head wo Cont [CT] Stat 03/23/18 01:35 Chest 1V Frontal [CR] Stat 03/23/18 01:37 EKG 12 Lead [EKG Documentation Completion] [RC] STAT - Assessment/Plan Last 24 Hours: My Active Orders 03/23/18 01:34 Head wo Cont [CT] Stat 03/23/18 01:35 Chest 1V Frontal [CR] Stat 03/23/18 01:37 EKG 12 Lead [EKG Documentation Completion] [RC] STAT
[2018-03-23 03:40] VITALS: BP 147/84
--- NOTE | 2018-03-23 17:08 | CT ---
EXAM DATE: 03/23/18 PATIENT'S AGE: 77 Patient: JESI GOODMAN Facility: [facility], [place], [place] Site . Site : 1940 Study: CT Head [id number]/30/2018 1:42:16 AM Ordering Physician: Doctor Dodge Final Report: INDICATION: Code stroke. TECHNIQUE: CT Head without i.v. contrast. COMPARISON: Head CT date 12/18/2017. FINDINGS: CSF spaces: Within normal limits for age. Brain parenchyma: Mild diffuse cortical atrophy is noted. There are low attenuation white matter changes, likely due to chronic microvascular disease. There is preservation of the kee-white matter junction. No sign of mass, hemorrhage, or midline shift seen. Skull base and calvarium: The visualized paranasal sinuses are well aerated. Trace right mastoid effusion, unchanged. The visualized orbits are grossly unremarkable. No skull fractures are seen. IMPRESSION: 1. No evidence of acute infarction, intracranial hemorrhage, or mass effect seen. Dictated by Uriah Mckenzie MD @ 03/23/2018 1:59:38 AM Please note that all CT scans at this facility use dose modulation, iterative reconstruction, and/or weight-based dosing when appropriate to reduce radiation dose to as low as reasonably achievable. Dictated by: Uriah Mckenzie MD @ 03/23/2018 01:59:42 ----- ADDENDUM ----- ADDENDUM: 1. Dr. 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 Dictated by Uriah Mckenzie MD @ Mar 23 2018 2:02AM (Electronic Signature) Report Signed by Proxy. BETH DAVID HOSPITALCinthya
--- NOTE | 2018-03-23 17:09 | CR ---
EXAM DATE: 03/23/18 PATIENT'S AGE: 77 Patient: JESI GOODMAN Facility: [place], [place] Site . Site : 1940 Study: XRay Chest [id number]/30/2018 1:53:43 AM Ordering Physician: Doctor Dodge Final Report: INDICATION: Code stroke protocol. TECHNIQUE: Chest radiograph 1 view COMPARISON: 12/18/2017. FINDINGS: Cardiovascular and mediastinum: Heart size within normal limits. Calcified coronary artery disease noted. Lungs and pleural spaces: Both lungs are unremarkable in appearance. No sign of pleural effusion seen. No pneumothorax is identified. Bones and soft tissues: Surgical clips in the left axillary region. Likely chronic right rotator cuff injury. IMPRESSION: 1. No acute cardiopulmonary disease is seen. Dictated by Uriah Mckenzie MD @ 03/23/2018 2:01:55 AM Dictated by: Uriah Mckenzie MD @ 03/23/2018 02:02:01 (Electronic Signature) Report Signed by Proxy. SORAYA
== END 2018-03-23 03:45 ==
LOC: MW.ED 01:28
DX: I63.9 Cerebral infarction, unspecified (principal); E78.5 Hyperlipidemia, unspecified; I10 Essential (primary) hypertension; E11.9 Type 2 diabetes mellitus without complications; I25.10 Atherosclerotic heart disease of native coronary artery without angina pectoris; E03.9 Hypothyroidism, unspecified; Z79.84 Long term (current) use of oral hypoglycemic drugs; Z79.82 Long term (current) use of aspirin; Z79.899 Other long term (current) drug therapy; Z95.5 Presence of coronary angioplasty implant and graft; Z79.01 Long term (current) use of anticoagulants
CPT/HCPCS: 36415; 70450; 70450-26; 71045; 71045-26; 80053; 82553; 82962; 84484; 85025; 85610; 93005; 99285-25

== ENCOUNTER 2020-03-29 10:50 | Emergency (ER) | payer MEDICARE, OTHER ==
[2020-03-29] MEDS ORDERED: Acetaminophen 500 MG Tab PO ONE (11:35)
--- NOTE | 2020-03-29 11:35 | EDM.PDOC ---
ED HPI GENERAL MEDICAL PROBLEM - General Chief Complaint: Abdominal Pain Stated Complaint: ABDOMINAL PAIN Time Seen by Provider: 03/29/20 10:56 - History of Present Illness INITIAL COMMENTS - FREE TEXT/NARRATIVE: History of present illness: [Presents with left lower quadrant abdominal pain and a bulge that is been present for 13 years. He states since she had surgery in 2006 there is been a sore spot in that exact spot in the last several days it has gotten worse she denies any nausea or vomiting she has not had any difficulty with stooling and she is passing gas] multiple prior abdominal surgeries which she cannot name all of. There is evidence of a median laparotomy and some lateral scarring in the area of the bulge. Has any symptoms of bowel obstruction or incarcerated hernia at this time. For chills no other complaints makes it worse laying down makes it resolve Review of systems: As per history of present illness and below otherwise all systems reviewed and negative. Past medical history: As per history of present illness and as reviewed below otherwise noncontributory. Surgical history: As per history of present illness and as reviewed below otherwise noncontributory. Social history: No reported history of drug or alcohol abuse. Family history: As per history of present illness and as reviewed below otherwise noncontributory. Physical exam: HEENT: Atraumatic, normocephalic, pupils reactive, negative for conjunctival pallor or scleral icterus, mucous membranes moist, throat clear, neck supple, nontender, trachea midline. Lungs: Clear to auscultation, breath sounds equal bilaterally, chest nontender. Heart: S1S2, regular, negative for clicks, rubs, or JVD. Abdomen: Soft, nondistended, nontender. Negative for masses or hepatosplenomegaly. Negative for costovertebral tenderness. On supine exam there is no tenderness no abdominal wall defect is noted. On standing examination there is a slight bulge in the area of her concern is consistent with a reducible abdominal wall hernia Pelvis: Stable nontender. Genitourinary: Deferred. Rectal: Deferred. Extremities: Atraumatic, negative for cords or calf pain. Neurovascular unremarkable. Neuro: Awake, alert, oriented. Cranial nerves II through XII unremarkable. Cerebellum unremarkable. Motor and sensory unremarkable throughout. Exam nonfocal. Diagnostics: [] Therapeutics: [] Impression: Abdominal wall defect with hernia that is reducible [] Plan: Will be given Tylenol in the ED she is encouraged to use Metamucil to soften her stools she will be referred to general surgery. Return to the ED for increased abdominal pain and distention nausea vomiting or other concerns [] Definitive disposition and diagnosis as appropriate pending reevaluation and review of above. left lower abd. Pain Score (Numeric/FACES): 5 - Related Data Allergies Allergy/AdvReac Type Severity Reaction Status Date / Time No Known Allergies Allergy Verified 03/29/20 11:06 Home Meds: Home Meds DULoxetine HCl [Duloxetine HCl] 30 mg PO BID 08/17/14 [History] Levothyroxine Sodium [Levoxyl] 50 mcg PO DAILY 08/17/14 [History] Lisinopril 5 mg PO BEDTIME 08/17/14 [History] metFORMIN [Glucophage XR] 500 mg PO QAM 08/17/14 [History] ramipriL [Altace] 5 mg PO DAILY 08/17/14 [History] Aspirin [Halfprin] 1 tab PO DAILY 02/23/15 [History] Clopidogrel [Plavix] 75 mg PO DAILY 12/18/17 [History] Ferrous Fumarate 1 tab PO DAILY 12/18/17 [History] Hydrocodone/Acetaminophen [Hydrocodone-Acetamin 5-325 mg] 1 each PO Q4H [History] Nitroglycerin [Nitrostat] 0.4 mg SL ASDIRECTED PRN 12/18/17 [History] Pantoprazole Sodium 40 mg PO DAILY 12/18/17 [History] atorvaSTATin [Lipitor] 20 mg PO BEDTIME 12/18/17 [History] carvediloL [Carvedilol] 6.25 mg PO BID 12/18/17 [History] Past Medical History - Past Health History Medical/Surgical History: Denies Medical/Surgical History HEENT History: Reports: Sinusitis Cardiovascular History: Reports: Hypertension, Stents 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 PHYSICIAN History: Reports: Musculoskeletal History: Reports: Arthritis Endocrine/Metabolic History: Reports: Diabetes, Type II Oncologic (Cancer) History: Reports: Breast, Ovarian Dermatologic History: Reports: None - Infectious Disease History Infectious Disease History: Reports: Chicken Pox - Past Surgical History HEENT Surgical History: Reports: None Cardiovascular Surgical History: Reports: Carotid Stents Female Surgical History: Reports: Breast Implant, Hysterectomy, Oophorectomy Musculoskeletal Surgical History: Reports: Other (See Below) Other Musculoskeletal Surgeries/Procedures:: Right ankle plate and screws Oncologic Surgical History: Reports: Mastectomy Social & Family History - Family History Family Medical History: Noncontributory Cardiac: Reports: CAD, [place] Oncologic: Reports: Breast - Tobacco Use Smoking Status *Q: Never Smoker - Caffeine Use Caffeine Use: Reports: Other Other Caffeine Use: decaf coffee Caffeine Use Comment: de-caf - Recreational Drug Use Recreational Drug Use: No ED ROS GENERAL - Review of Systems Review Of Systems: See Below ED EXAM, GENERAL - Physical Exam Exam: See Below Course - Vital Signs Last Recorded V/S: Last Vital Signs Temp 35.8 C L 03/29/20 11:00 Pulse 86 03/29/20 11:00 Resp 18 03/29/20 11:00 BP 140/47 L 03/29/20 11:00 Pulse Ox 96 03/29/20 11:00 Departure - Departure Time of Disposition: 11:33 Disposition: Home, Self-Care 01 Condition: Good Clinical Impression: Hernia - Discharge Information *PRESCRIPTION DRUG MONITORING PROGRAM REVIEWED*: Not Applicable *COPY OF PRESCRIPTION DRUG MONITORING REPORT IN PATIENT RADHA: Not Applicable Instructions: Hernia, Adult Referrals: Nabor Boogie MD [Primary Care Provider] - Additional Instructions: [facility] - General Surgery [address], [address] [place] [address] The following information is given to patients seen in the emergency department who are being discharged to home. This information is to outline your options for follow-up care. We provide all patients seen in our emergency department with a follow-up referral. The need for follow-up, as well as the timing and circumstances, are variable depending upon the specifics of your emergency department visit. If you don't have a primary care physician on staff, we will provide you with a referral. We always advise you to contact your personal physician following an emergency department visit to inform them of the circumstance of the visit and for follow-up with them and/or the need for any referrals to a consulting specialist. The emergency department will also refer you to a specialist when appropriate. This referral assures that you have the opportunity for follow-up care with a specialist. All of these measure are taken in an effort to provide you with optimal care, which includes your follow-up. Under all circumstances we always encourage you to contact your private physician who remains a resource for coordinating your care. When calling for follow-up care, please make the office aware that this follow-up is from your recent emergency room visit. If for any reason you are refused follow-up, please contact the [facility] Emergency Department at and asked to speak to the emergency department charge nurse. Sepsis Event Note - Evaluation Sepsis Screening Result: No Definite Risk - Focused Exam Vital Signs: Vital Signs Temp Pulse Resp BP Pulse Ox 03/29/20 11:00 35.8 C L 86 18 140/47 L 96 Date Exam was Performed: 03/29/20 Time Exam was Performed: 11:30
[2020-03-29 11:55] VITALS: BP 139/69; PULSE 81
== END 2020-03-29 11:54 | disposition home or self-care (01) ==
LOC: MW.ED 10:50
DX: K46.9 Unspecified abdominal hernia without obstruction or gangrene (principal); I10 Essential (primary) hypertension; E11.9 Type 2 diabetes mellitus without complications; M19.90 Unspecified osteoarthritis, unspecified site; Z79.82 Long term (current) use of aspirin; Z79.02 Long term (current) use of antithrombotics/antiplatelets; Z79.899 Other long term (current) drug therapy
CPT/HCPCS: 99284; A9270; 99282

== ENCOUNTER 2020-07-19 13:30 | Emergency (ER) | payer MEDICARE, OTHER ==
[2020-07-19] MEDS ORDERED: Octyl 2-Cyanoacrylate 1 APPLIC TUBE TOP ONE (13:57)
[2020-07-19] MEDS ORDERED: Diphtheria,Pertussis(Acell),Tetanus Vaccine 0.5 ML Syringe IM ONE (13:57)
--- NOTE | 2020-07-19 14:13 | EDM.PDOC ---
ED HPI GENERAL MEDICAL PROBLEM - General Chief Complaint: Laceration Stated Complaint: CUT TOE Time Seen by Provider: 07/19/20 13:40 Source of Information: Reports: Patient - History of Present Illness INITIAL COMMENTS - FREE TEXT/NARRATIVE: History of present illness: 79-year-old female presenting with left toe laceration. Apparently she was walking in her yard just prior to arrival here when she suddenly felt some sharp pain and looked down and had some bleeding. She thinks there may have been some glass in the yard. She denies any pain in the area. It is located on the second toe on the left foot at the distal tip. She has not had any other injury. Denies any other symptoms including no dizziness, headache, head injury, chest pain, difficulty breathing or any other symptoms. The patient is not certain of her last tetanus shot. Review of systems: As per history of present illness and below otherwise all systems reviewed and negative. Past medical history: As per history of present illness and as reviewed below otherwise noncontributory. Diabetes, coronary artery disease, hypertension, breast cancer, ovarian cancer Surgical history: As per history of present illness and as reviewed below otherwise noncontributory. Mastectomy, hysterectomy, oophorectomy, cardiac stents Social history: No reported history of drug or alcohol abuse. No smoking Family history: As per history of present illness and as reviewed below otherwise noncontributory. Physical exam: GEN: no acute distress, well appearing HEENT: Atraumatic, normocephalic, mucous membranes moist Neck: supple. Lungs: No respiratory distress. Heart: RRR Extremities: Left second toe superficial laceration to distal tip, actively bleeding, nontender, full range of motion of the left foot and toes, no foot tenderness, no midfoot tenderness. Neurovascularly intact. Neuro: Awake, alert, oriented. Neuro Exam nonfocal. Skin: warm, dry, no lesions Diagnostics: [] Therapeutics: Tetanus booster (Adacel), Dermabond MDM: Impression: [] Plan: [] Definitive disposition and diagnosis as appropriate pending reevaluation and review of above. - Related Data Allergies Allergy/AdvReac Type Severity Reaction Status Date / Time No Known Allergies Allergy Verified 07/19/20 13:52 Home Meds: Home Meds DULoxetine HCl [Duloxetine HCl] 30 mg PO BID 08/17/14 [History] Levothyroxine Sodium [Levoxyl] 50 mcg PO DAILY 08/17/14 [History] Lisinopril 5 mg PO BEDTIME 08/17/14 [History] metFORMIN [Glucophage XR] 500 mg PO QAM 08/17/14 [History] ramipriL [Altace] 5 mg PO DAILY 08/17/14 [History] Aspirin [Halfprin] 1 tab PO DAILY 02/23/15 [History] Clopidogrel [Plavix] 75 mg PO DAILY 12/18/17 [History] Ferrous Fumarate 1 tab PO DAILY 12/18/17 [History] Hydrocodone/Acetaminophen [Hydrocodone-Acetamin 5-325 mg] 1 each PO Q4H 12/18/17 [History] Nitroglycerin [Nitrostat] 0.4 mg SL ASDIRECTED PRN 12/18/17 [History] Pantoprazole Sodium 40 mg PO DAILY 12/18/17 [History] atorvaSTATin [Lipitor] 20 mg PO BEDTIME 12/18/17 [History] carvediloL [Carvedilol] 6.25 mg PO BID 12/18/17 [History] Past Medical History - Past Health History Medical/Surgical History: Denies Medical/Surgical History HEENT History: Reports: Sinusitis Cardiovascular History: Reports: Hypertension, Stents Respiratory History: Reports: None Gastrointestinal History: Reports: None Genitourinary History: Reports: None [employer]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 History: Reports: Musculoskeletal History: Reports: Arthritis Neurological History: Reports: None Psychiatric History: Reports: None Endocrine/Metabolic History: Reports: Diabetes, Type II Hematologic History: Reports: None Immunologic History: Reports: None Oncologic (Cancer) History: Reports: Breast, Ovarian Dermatologic History: Reports: None - Infectious Disease History Infectious Disease History: Reports: None - Past Surgical History Head Surgeries/Procedures: Reports: None HEENT Surgical History: Reports: None Cardiovascular Surgical History: Reports: Carotid Stents Respiratory Surgical History: Reports: None GI Surgical History: Reports: None Female Surgical History: Reports: Breast Implant, Hysterectomy, Oophorectomy Endocrine Surgical History: Reports: None Neurological Surgical History: Reports: None Musculoskeletal Surgical History: Reports: Other (See Below) Other Musculoskeletal Surgeries/Procedures:: Right ankle plate and screws Oncologic Surgical History: Reports: Mastectomy Dermatological Surgical History: Reports: None Social & Family History - Family History Family Medical History: Noncontributory Cardiac: Reports: CAD, [place] Oncologic: Reports: Breast - Tobacco Use Smoking Status *Q: Never Smoker Second Hand Smoke Exposure: No - Caffeine Use Caffeine Use: Reports: None Other Caffeine Use: decaf coffee Caffeine Use Comment: de-caf - Recreational Drug Use Recreational Drug Use: No ED ROS GENERAL - Review of Systems Review Of Systems: See Below (See HPI) ED EXAM, SKIN/RASH Exam: See Below (See HPI) ED SKIN PROCEDURES - Laceration/Wound Repair Left Toe - Second Appearance: Superficial, Clean Distal NVT: Neuro & Vascular Intact, No Tendon Injury Closed with: Dermabond Lac/Wound length In cm: 1 Course - Vital Signs Last Recorded V/S: Last Vital Signs Temp 97.0 F 07/19/20 13:51 Pulse 91 07/19/20 13:51 Resp 17 07/19/20 13:51 BP 186/85 H 07/19/20 13:51 Pulse Ox 97 07/19/20 13:51 - Orders/Labs/Meds Orders: Active Orders 24 hr Category Date Time Status Vaccines to be Administered [RC] PER UNIT ROUTINE Care 07/19/20 13:57 Active Meds: Medications Discontinued Medications Generic Name Dose Route Start Last Admin Trade Name Freq PRN Reason Stop Dose Admin Diphtheria/Tetanus/Acell Pertussis 0.5 ml 07/19/20 13:57 07/19/20 14:04 Adacel IM 07/19/20 13:58 0.5 ml .ONCE ONE Administration Octyl Cyanoacrylate 1 applic 07/19/20 13:57 07/19/20 14:04 Dermabond Mini TOP 07/19/20 13:58 1 applic ONETIME ONE Administration - Re-Assessments/Exams Free Text/Narrative Re-Assessment/Exam: 07/19/20 14:58 Reassessed the patient after observation. There is no further bleeding from the wound now that the Dermabond has been placed. The patient tolerated that well. No distress. Discussed plan of care. She has received her tetanus shot. Stable for discharge. Departure - Departure Time of Disposition: 14:59 Disposition: Home, Self-Care 01 Clinical Impression: Toe laceration Qualifiers: Encounter type: initial encounter Toe: lesser toe Damage to nail status: without damage Foreign body presence: without foreign body Laterality: left Qualified Code(s): S91.115A - Laceration without foreign body of left lesser toe(s) without damage to nail, initial encounter - Discharge Information Instructions: Laceration Care, Adult, Sutures, Karrie, or Adhesive Wound Closure, [id number] Referrals: Nabor Boogie MD [Primary Care Provider] - Forms: ED Department Discharge Additional Instructions: Keep the foot elevated whenever possible to avoid swelling just for the next couple days. Keep the area clean and dry. Do not soak your foot as the Dermabond may come off prematurely. If the Dermabond does come off and the wound starts to bleed profusely, please hold firm pressure/gauze to the wound for 20 minutes straight, do not check in between. Return to the ER if you are unable to control the bleeding. Follow-up with your primary care physician for further evaluation and recheck. The following information is given to patients seen in the emergency department who are being discharged to home. This information is to outline your options for follow-up care. We provide all patients seen in our emergency department with a follow-up referral. The need for follow-up, as well as the timing and circumstances, are variable depending upon the specifics of your emergency department visit. If you don't have a primary care physician on staff, we will provide you with a referral. We always advise you to contact your personal physician following an emergency department visit to inform them of the circumstance of the visit and for follow-up with them and/or the need for any referrals to a consulting specialist. The emergency department will also refer you to a specialist when appropriate. T his referral assures that you have the opportunity for follow-up care with a specialist. All of these measure are taken in an effort to provide you with optimal care, which includes your follow-up. Under all circumstances we always encourage you to contact your private physician who remains a resource for coordinating your care. When calling for follow-up care, please make the office aware that this follow-up is from your recent emergency room visit. If for any reason you are refused follow-up, please contact the [facility] Emergency Department at and asked to speak to the emergency department charge nurse. Sepsis Event Note (ED) - Evaluation Sepsis Screening Result: No Definite Risk - Focused Exam Vital Signs: Vital Signs Temp Pulse Resp BP Pulse Ox 07/19/20 13:51 97.0 F 91 17 186/85 H 97 - My Orders Last 24 Hours: My Active Orders 07/19/20 13:57 Vaccines to be Administered [RC] PER UNIT ROUTINE - Assessment/Plan Last 24 Hours: My Active Orders 07/19/20 13:57 Vaccines to be Administered [RC] PER UNIT ROUTINE
[2020-07-20 02:33] VITALS: BP 153/68; PULSE 82
== END 2020-07-19 15:30 | disposition home or self-care (01) ==
LOC: MW.ED 13:30
DX: S91.115A Laceration without foreign body of left lesser toe(s) without damage to nail, initial encounter (principal); I10 Essential (primary) hypertension; M19.90 Unspecified osteoarthritis, unspecified site; E11.9 Type 2 diabetes mellitus without complications; Z79.82 Long term (current) use of aspirin; Z79.02 Long term (current) use of antithrombotics/antiplatelets; Z79.84 Long term (current) use of oral hypoglycemic drugs; Z79.899 Other long term (current) drug therapy; Z23 Encounter for immunization; X58.XXXA Exposure to other specified factors, initial encounter
CPT/HCPCS: 12001; 90471; 90715; 99282; A9270

== ENCOUNTER 2020-12-09 09:38 | Observation (INO) | payer MEDICARE, OTHER ==
[2020-12-09] MEDS ORDERED: Sodium Chloride 0.9% 2.5 ML Syringe FLUSH PRN (09:41)
[2020-12-09] MEDS ORDERED: Sodium Chloride 0.9% 10 ML Syringe FLUSH PRN (09:41)
--- NOTE | 2020-12-09 09:43 | EDM.PDOC ---
ED HPI GENERAL MEDICAL PROBLEM - General Stated Complaint: CHEST PAIN DIFFICULTY BREATHING Time Seen by Provider: 12/09/20 09:40 Source of Information: Reports: Patient History Limitations: Reports: No Limitations - History of Present Illness INITIAL COMMENTS - FREE TEXT/NARRATIVE: 80-year-old female with history of CAD with 4 stents, HTN, DM II, HLD, CVA, BRCA in remission presents with chest pain and headache. She was woken up by frontal headache rated 4/10, nonradiating, constant at 6 AM today. She was went to take a shower and started developing left-sided chest pain at 7 AM that radiated to the midsternum, rated 6/10, associated with shortness of breath, nausea, palpitation, generalized malaise. She denies vomiting, sweats, abdominal pain, neck pain. She took 1 sublingual nitroglycerin and 2 baby aspirin's with no relief. She had her Covid vaccine on . ROS: A 10-point review of systems, other than pertinent positives and negatives as stated per HPI, is otherwise negative Past medical history: No additional pertinent history Past Surgical history: No additional pertinent history Social history: No additional pertinent history Family history: No additional pertinent history PHYSICAL EXAM General: AOx4, GCS = 15, No distress, [place] HEENT: dry mucous membrane Neck: supple, no meningismus, no Kernig or Brudzinski Cardiac: S1S2 RRR Respiratory: CTAB, no crackles or rales, no wheezing Abdomen: Soft, nontender, no rebound or guarding, nondistended, no pulsatile mass. Back: nontender Musculoskeletal: NVI distally, no deformity Neuro: No focal deficits, CN 2 - 12 WNL. chest Pain Score (Numeric/FACES): 2 headache Pain Score (Numeric/FACES): 7 - Related Data Allergies Allergy/AdvReac Type Severity Reaction Status Date / Time No Known Allergies Allergy Verified 12/09/20 10:04 Home Meds: Home Meds DULoxetine HCl [Duloxetine HCl] 30 mg PO BID 08/17/14 [History] Levothyroxine Sodium [Levoxyl] 50 mcg PO DAILY 08/17/14 [History] Lisinopril 5 mg PO BEDTIME 08/17/14 [History] metFORMIN [Glucophage XR] 500 mg PO QAM 08/17/14 [History] ramipriL [Altace] 5 mg PO DAILY 08/17/14 [History] Aspirin [Halfprin] 1 tab PO DAILY 02/23/15 [History] Clopidogrel [Plavix] 75 mg PO DAILY 12/18/17 [History] Ferrous Fumarate 1 tab PO DAILY 12/18/17 [History] Hydrocodone/Acetaminophen [Hydrocodone-Acetamin 5-325 mg] 1 each PO Q4H 12/18/17 [History] Nitroglycerin [Nitrostat] 0.4 mg SL ASDIRECTED PRN 12/18/17 [History] Pantoprazole Sodium 40 mg PO DAILY 12/18/17 [History] atorvaSTATin [Lipitor] 20 mg PO BEDTIME 12/18/17 [History] carvediloL [Carvedilol] 6.25 mg PO BID 12/18/17 [History] Past Medical History - Past Health History Medical/Surgical History: Denies Medical/Surgical History HEENT History: Reports: Sinusitis Cardiovascular History: Reports: Hypertension, Stents Respiratory History: Reports: None Gastrointestinal History: Reports: None Genitourinary History: Reports: None [employer]IST History: Reports: Musculoskeletal History: Reports: Arthritis Neurological History: Reports: None Psychiatric History: Reports: None Endocrine/Metabolic History: Reports: Diabetes, Type II Hematologic History: Reports: None Immunologic History: Reports: None Oncologic (Cancer) History: Reports: Breast, Ovarian Dermatologic History: Reports: None - Infectious Disease History Infectious Disease History: Reports: None - Past Surgical History Head Surgeries/Procedures: Reports: None HEENT Surgical History: Reports: None Cardiovascular Surgical History: Reports: Carotid Stents Respiratory Surgical History: Reports: None GI Surgical History: Reports: None Female Surgical History: Reports: Breast Implant, Hysterectomy, Oophorectomy Endocrine Surgical History: Reports: None Neurological Surgical History: Reports: None Musculoskeletal Surgical History: Reports: Other (See Below) Other Musculoskeletal Surgeries/Procedures:: Right ankle plate and screws Oncologic Surgical History: Reports: Mastectomy Dermatological Surgical History: Reports: None Social & Family History - Family History Family Medical History: No Pertinent Family History Cardiac: Reports: CAD, [place] Oncologic: Reports: Breast - Caffeine Use Caffeine Use: Reports: None Other Caffeine Use: decaf coffee Caffeine Use Comment: de-caf ED ROS GENERAL - Review of Systems Review Of Systems: See Below (see dictation) ED EXAM, GENERAL - Physical Exam Exam: See Below (see dictation) #1 Interpretation EKG Interpretation Comments: 90 bpm, NSR, normal QRS interval, no STEMI. EKG and rhythm strip interpreted by me at 0941 #2 Interpretation EKG Interpretation Comments: 83 bpm, NSR, normal QRS interval, no STEMI. EKG and rhythm strip interpreted by me at 1029 Course - Vital Signs Last Recorded V/S: Last Vital Signs Temp 96.8 F L 12/09/20 09:48 Pulse 87 12/09/20 10:30 Resp 18 12/09/20 10:30 BP 167/88 H 12/09/20 10:30 Pulse Ox 97 12/09/20 10:30 - Orders/Labs/Meds Orders: Active Orders 24 hr Category Date Time Status Patient Status [ADT] Routine ADT 12/09/20 11:48 Ordered Cardiac Monitoring [RC] . DIRECTED Care 12/09/20 09:41 Active EKG 12 Lead [EKG Documentation Completion] [RC] STAT Care 12/09/20 10:26 Active EKG Documentation Completion [RC] STAT Care 12/09/20 09:41 Active Pulse Oximetry [RC] ASDIRECTED Care 12/09/20 09:41 Active PROCALCITONIN [REF] Stat Lab 12/09/20 09:48 Received URINALYSIS W/MICROSCOPIC [UA W/MICROSCOPIC] [URIN] Stat Lab 12/09/20 11:38 Ordered Aspirin Med 12/09/20 10:00 Active 162 mg PO DAILY Nitroglycerin [Nitrostat] Med 12/09/20 09:54 Active 0.4 mg SL Q5M PRN Sodium Chloride 0.9% [Saline Flush] Med 12/09/20 09:41 Active 10 ml FLUSH ASDIRECTED PRN Sodium Chloride 0.9% [Saline Flush] Med 12/09/20 09:41 Active 2.5 ml FLUSH ASDIRECTED PRN Saline Lock Insert [OM.PC] Stat Oth 12/09/20 09:41 Ordered Medication Orders Aspirin (Aspirin) 162 mg PO DAILY YVONNE Stop: 12/10/20 10:01 Last Admin: 12/09/20 10:07 Dose: 162 mg Documented by: LEEANN Nitroglycerin (Nitrostat) 0.4 mg SL Q5M PRN PRN Reason: Chest Pain Last Admin: 12/09/20 10:14 Dose: 0.4 mg Documented by: Admin: 12/09/20 10:09 Dose: 0.4 mg Documented by: LEEANN Sodium Chloride (Saline Flush) 10 ml FLUSH ASDIRECTED PRN PRN Reason: Keep Vein Open Last Admin: 12/09/20 10:13 Dose: 10 ml Documented by: LEEANN Sodium Chloride (Saline Flush) 2.5 ml FLUSH ASDIRECTED PRN PRN Reason: Keep Vein Open Last Admin: 12/09/20 10:13 Dose: 2.5 ml Documented by: LEEANN Labs: Laboratory Tests 12/09/20 12/09/20 12/09/20 Range/Units 09:48 09:48 09:48 WBC 9.61 (4.0-11.0) K/uL RBC 4.84 (4.30-5.90) M/uL Hgb 15.2 (12.0-16.0) g/dL Hct 42.7 (36.0-46.0) % MCV 88.2 (80.0-98.0) fL MCH 31.4 (27.0-32.0) pg MCHC 35.6 (31.0-37.0) g/dL RDW Std Deviation 41.0 (28.0-62.0) fl RDW Coeff of Inderjit 13 (11.0-15.0) % Plt Count 298 (150-400) K/uL MPV 8.70 (7.40-12.00) fL Neut % (Auto) 55.4 (48.0-80.0) % Lymph % (Auto) 29.1 (16.0-40.0) % [place] % (Auto) 11.9 (0.0-15.0) % Eos % (Auto) 3.2 (0.0-7.0) % Baso % (Auto) 0.4 (0.0-1.5) % Neut # (Auto) 5.3 (1.4-5.7) K/uL Lymph # (Auto) 2.8 H (0.6-2.4) K/uL [place] # (Auto) 1.1 H (0.0-0.8) K/uL Eos # (Auto) 0.3 (0.0-0.7) K/uL Baso # (Auto) 0.0 (0.0-0.1) K/uL Nucleated RBC % 0.0 /100WBC Nucleated RBCs # 0 K/uL INR 0.94 APTT 26.1 (18.6-31.3) SEC D-Dimer, Quantitative 0.53 H (0.0-0.50) mg/L FEU Lactate (0.20-2.00) mmol/L Sodium 127 L (136-145) mmol/L Potassium 4.2 (3.5-5.1) mmol/L Chloride 89 L (98-107) mmol/L Carbon Dioxide 24.8 (21.0-32.0) mmol/L BUN 7 (7.0-18.0) mg/dL Creatinine 0.9 (0.6-1.0) mg/dL Est Cr Clr Drug Dosing 38.87 mL/min Estimated GFR (MDRD) > 60.0 ml/min Glucose 186 H (74-106) mg/dL Calcium 9.7 (8.5-10.1) mg/dL Ferritin (8-252) ng/mL Total Bilirubin 0.6 (0.2-1.0) mg/dL AST 21 (15-37) IU/L ALT 25 (14-63) IU/L Alkaline Phosphatase 132 H (46-116) U/L Lactate Dehydrogenase 206 (81-234) U/L Troponin I < 0.050 (0.000-0.056) ng/mL B-Natriuretic Peptide (<100) PG/ML Total Protein 8.2 (6.4-8.2) g/dL Albumin 4.2 (3.4-5.0) g/dL Globulin 4.0 (2.6-4.0) g/dL Albumin/Globulin Ratio 1.0 (0.9-1.6) SARS-CoV-2 RNA (SOTERO) (NEGATIVE) 12/09/20 12/09/20 12/09/20 Range/Units 09:48 09:48 09:48 WBC (4.0-11.0) K/uL RBC (4.30-5.90) M/uL Hgb (12.0-16.0) g/dL Hct (36.0-46.0) % MCV (80.0-98.0) fL MCH (27.0-32.0) pg MCHC (31.0-37.0) g/dL RDW Std Deviation (28.0-62.0) fl RDW Coeff of Inderjit (11.0-15.0) % Plt Count (150-400) K/uL MPV (7.40-12.00) fL Neut % (Auto) (48.0-80.0) % Lymph % (Auto) (16.0-40.0) % [place] % (Auto) (0.0-15.0) % Eos % (Auto) (0.0-7.0) % Baso % (Auto) (0.0-1.5) % Neut # (Auto) (1.4-5.7) K/uL Lymph # (Auto) (0.6-2.4) K/uL [place] # (Auto) (0.0-0.8) K/uL Eos # (Auto) (0.0-0.7) K/uL Baso # (Auto) (0.0-0.1) K/uL Nucleated RBC % /100WBC Nucleated RBCs # K/uL INR APTT (18.6-31.3) SEC D-Dimer, Quantitative (0.0-0.50) mg/L FEU Lactate 1.5 (0.20-2.00) mmol/L Sodium (136-145) mmol/L Potassium (3.5-5.1) mmol/L Chloride (98-107) mmol/L Carbon Dioxide (21.0-32.0) mmol/L BUN (7.0-18.0) mg/dL Creatinine (0.6-1.0) mg/dL Est Cr Clr Drug Dosing mL/min Estimated GFR (MDRD) ml/min Glucose (74-106) mg/dL Calcium (8.5-10.1) mg/dL Ferritin 78 (8-252) ng/mL Total Bilirubin (0.2-1.0) mg/dL AST (15-37) IU/L ALT (14-63) IU/L Alkaline Phosphatase (46-116) U/L Lactate Dehydrogenase (81-234) U/L Troponin I (0.000-0.056) ng/mL B-Natriuretic Peptide 20 (<100) PG/ML Total Protein (6.4-8.2) g/dL Albumin (3.4-5.0) g/dL Globulin (2.6-4.0) g/dL Albumin/Globulin Ratio (0.9-1.6) SARS-CoV-2 RNA (SOTERO) (NEGATIVE) 12/09/20 Range/Units 10:30 WBC (4.0-11.0) K/uL RBC (4.30-5.90) M/uL Hgb (12.0-16.0) g/dL Hct (36.0-46.0) % MCV (80.0-98.0) fL MCH (27.0-32.0) pg MCHC (31.0-37.0) g/dL RDW Std Deviation (28.0-62.0) fl RDW Coeff of Inderjit (11.0-15.0) % Plt Count (150-400) K/uL MPV (7.40-12.00) fL Neut % (Auto) (48.0-80.0) % Lymph % (Auto) (16.0-40.0) % [place] % (Auto) (0.0-15.0) % Eos % (Auto) (0.0-7.0) % Baso % (Auto) (0.0-1.5) % Neut # (Auto) (1.4-5.7) K/uL Lymph # (Auto) (0.6-2.4) K/uL [place] # (Auto) (0.0-0.8) K/uL Eos # (Auto) (0.0-0.7) K/uL Baso # (Auto) (0.0-0.1) K/uL Nucleated RBC % /100WBC Nucleated RBCs # K/uL INR APTT (18.6-31.3) SEC D-Dimer, Quantitative (0.0-0.50) mg/L FEU Lactate (0.20-2.00) mmol/L Sodium (136-145) mmol/L Potassium (3.5-5.1) mmol/L Chloride (98-107) mmol/L Carbon Dioxide (21.0-32.0) mmol/L BUN (7.0-18.0) mg/dL Creatinine (0.6-1.0) mg/dL Est Cr Clr Drug Dosing mL/min Estimated GFR (MDRD) ml/min Glucose (74-106) mg/dL Calcium (8.5-10.1) mg/dL Ferritin (8-252) ng/mL Total Bilirubin (0.2-1.0) mg/dL AST (15-37) IU/L ALT (14-63) IU/L Alkaline Phosphatase (46-116) U/L Lactate Dehydrogenase (81-234) U/L Troponin I (0.000-0.056) ng/mL B-Natriuretic Peptide (<100) PG/ML Total Protein (6.4-8.2) g/dL Albumin (3.4-5.0) g/dL Globulin (2.6-4.0) g/dL Albumin/Globulin Ratio (0.9-1.6) SARS-CoV-2 RNA (SOTERO) NEGATIVE (NEGATIVE) Meds: Medications Generic Name Dose Route Start Last Admin Trade Name Frelula PRN Reason Stop Dose Admin Aspirin 162 mg 12/09/20 10:00 12/09/20 10:07 Aspirin PO 12/10/20 10:01 162 mg DAILY YVONNE Administration Nitroglycerin 0.4 mg 12/09/20 09:54 12/09/20 10:14 Nitrostat SL 0.4 mg Q5M PRN Administration Chest Pain Sodium Chloride 10 ml 12/09/20 09:41 12/09/20 10:13 Saline Flush FLUSH 10 ml ASDIRECTED PRN Administration Keep Vein Open Sodium Chloride 2.5 ml 12/09/20 09:41 12/09/20 10:13 Saline Flush FLUSH 2.5 ml ASDIRECTED PRN Administration Keep Vein Open Discontinued Medications Generic Name Dose Route Start Last Admin Trade Name Freq PRN Reason Stop Dose Admin Lactated Ringer's 1,000 mls @ 999 mls/hr 12/09/20 09:54 12/09/20 10:07 Ringers, Lactated IV 12/09/20 10:54 999 mls/hr .BOLUS ONE Administration Nitroglycerin 1 gm 12/09/20 10:37 12/09/20 10:59 Nitro-Bid 2% TOP 12/09/20 10:38 1 gm ONETIME ONE Administration - Re-Assessments/Exams Free Text/Narrative Re-Assessment/Exam: 12/09/20 10:28 Chest pain is completely resolved after 2 sublingual nitroglycerin. 12/09/20 11:33 I reassessed the patient, her chest pain and headache is completely resolved. 1 inch Nitropaste applied. Case discussed with Dr. Allen, who agrees to admit patient. The hospitalist's documentation supersedes all other documentation on this patient with regard to any conflicts or discrepancies from this point forward. Any emergency conditions have been treated to the ability of the ED prior to admission. MEDICAL DECISION MAKING: I reviewed the patients past medical records, lab and radiographic findings. I discussed the case with the patient. My differential diagnosis included: ACS, electrolyte abnormality, hypoglycemia. Patient EKG was unremarkable, troponin unremarkable, her chest pain was completely resolved after nitroglycerin, she is nitro responsive and warrants further cardiac work- up given history of 4 cardiac stents and heart score of 5. She was extremely hard of hearing, and somewhat confused to my questions. Her initial blood pressure = 210/99, improved to 160/80 after [address] head was performed given history of CVA, no intracranial process found. Initially her sodium was found to be low at 127, which could have been a confounding factor for her altered mental status. She was tested negative for Covid. Her D-dimer was elevated at 0.53, her age adjusted D-dimer is 0.78, therefore I do not suspect PE / VTE. Departure - Departure Time of Disposition: 10:38 Disposition: Refer to Observation Condition: Good Clinical Impression: Chest pain, Hyponatremia Instructions: Nonspecific Chest Pain, Adult Referrals: PCP,None [Primary Care Provider] - Sepsis Event Note (ED) - Focused Exam Vital Signs: Vital Signs Temp Pulse Resp BP BP Pulse Ox 12/09/20 10:30 87 18 167/88 H 97 12/09/20 10:18 104 H 18 114/71 95 12/09/20 10:14 164/90 H 12/09/20 10:09 161/98 H 12/09/20 09:48 96.8 F L 83 20 210/99 H 98 - My Orders Last 24 Hours: My Active Orders 12/09/20 09:41 Cardiac Monitoring [RC] . DIRECTED EKG Documentation Completion [RC] STAT Pulse Oximetry [RC] ASDIRECTED Sodium Chloride 0.9% [Saline Flush] 10 ml FLUSH ASDIRECTED PRN Sodium Chloride 0.9% [Saline Flush] 2.5 ml FLUSH ASDIRECTED PRN Saline Lock Insert [OM.PC] Stat 12/09/20 09:48 PROCALCITONIN [REF] Stat 12/09/20 09:54 Nitroglycerin [Nitrostat] 0.4 mg SL Q5M PRN 12/09/20 10:00 Aspirin 162 mg PO DAILY 12/09/20 10:26 EKG 12 Lead [EKG Documentation Completion] [RC] STAT 12/09/20 11:38 URINALYSIS W/MICROSCOPIC [UA W/MICROSCOPIC] [URIN] Stat 12/09/20 11:48 Patient Status [ADT] Routine - Assessment/Plan Last 24 Hours: My Active Orders 12/09/20 09:41 Cardiac Monitoring [RC] . DIRECTED EKG Documentation Completion [RC] STAT Pulse Oximetry [RC] ASDIRECTED Sodium Chloride 0.9% [Saline Flush] 10 ml FLUSH ASDIRECTED PRN Sodium Chloride 0.9% [Saline Flush] 2.5 ml FLUSH ASDIRECTED PRN Saline Lock Insert [OM.PC] Stat 12/09/20 09:48 PROCALCITONIN [REF] Stat 12/09/20 09:54 Nitroglycerin [Nitrostat] 0.4 mg SL Q5M PRN 12/09/20 10:00 Aspirin 162 mg PO DAILY 12/09/20 10:26 EKG 12 Lead [EKG Documentation Completion] [RC] STAT 12/09/20 11:38 URINALYSIS W/MICROSCOPIC [UA W/MICROSCOPIC] [URIN] Stat 12/09/20 11:48 Patient Status [ADT] Routine
[2020-12-09] MEDS ORDERED: Lactated Ringers 1,000 ML IV ONE (09:54)
[2020-12-09] MEDS: Aspirin 81 MG Tab.Chew PO SCH (10:07)
[2020-12-09] MEDS: Nitroglycerin 0.4 MG Tab.SL SL PRN ×2 (10:09→10:14)
[2020-12-09 10:26] LABS: BLOOD UREA NITROGEN,BUN 7 mg/dL (7.0-18.0); CARBON DIOXIDE,CO2 24.8 mmol/L (21.0-32.0); CHLORIDE,CL 89 mmol/L (98-107); GLUCOSE RANDOM 186 mg/dL (74-106); POTASSIUM,K 4.2 mmol/L (3.5-5.1); SODIUM,NA 127 mmol/L (136-145)
[2020-12-09] MEDS ORDERED: Nitroglycerin 2% Oint 1 GM UD Packet TOP ONE (10:37)
--- NOTE | 2020-12-09 10:57 | CR ---
INDICATION: Chest pain. TECHNIQUE: AP portable chest x-ray. COMPARISON: Chest x-ray 03/23/2018. FINDINGS: Right rotator cuff arthropathy severe on the right and moderately severe on the left. Heart size normal. Surgical clips right upper abdomen. Old left rib fracture. Mild opacity in the left lung base medially likely related overlapping bronchovascular structures. No focal dense infiltrate or consolidation in either lung. Mild scarring or atelectasis in the lower lungs. Atherosclerotic coronary artery calcification and/or coronary artery stent. Remainder negative. Dictated by Tommy Whitaker MD @ Dec 09 2020 10:53AM Signed by Dr. Tommy Whitaker @ Dec 09 2020 10:55AM
--- NOTE | 2020-12-09 11:07 | CT ---
INDICATION: Headache. TECHNIQUE: Noncontrast head CT. COMPARISON: March 23, 2018. FINDINGS: There is no evidence for acute intracranial hemorrhage or hydrocephalus. No mass effect or shift of midline structures. No evidence for ischemic change or infarction. The kee white matter differentiation is preserved. No calvarial or skullbase fracture. The included paranasal sinuses and mastoid air cells are clear. IMPRESSION: Stable and negative noncontrast head CT. Please note that all CT scans at this facility use dose modulation, iterative reconstruction, and/or weight-based dosing when appropriate to reduce radiation dose to as low as reasonably achievable. Dictated by Hussain Gonzales MD @ Dec 09 2020 11:04AM Signed by Dr. Hussain Gonzales @ Dec 09 2020 11:06AM
--- NOTE | 2020-12-09 12:59 | PCM.HP.2 ---
H&P History of Present Illness - General Date of Service: 12/09/20 Admit Problem/Dx: Admission Diagnosis/Problem Admission Diagnosis/Problem Chest pain - History of Present Illness Initial Comments - Free Text/Narative: 80 yo female with pmh CAD with 4 stents, HTN, DM II, HLD, CVA who woke up this morning with headache and chest pain. Patient reports sharp chest pain nonradiating with associated symptoms of shortness of breath. PAtient took ASA and nitro and symptoms resolved. In the ED initial EKG and troponin were negative for signs of ischemia. chest Pain Score (Numeric/FACES): 2 headache Pain Score (Numeric/FACES): 7 - Related Data Allergies/Adverse Reactions: Allergies Allergy/AdvReac Type Severity Reaction Status Date / Time No Known Allergies Allergy Verified 12/09/20 10:04 Home Medications: Home Meds DULoxetine HCl [Duloxetine HCl] 30 mg PO BID 08/17/14 [History] Levothyroxine Sodium [Levoxyl] 50 mcg PO DAILY 08/17/14 [History] Lisinopril 5 mg PO BEDTIME 08/17/14 [History] metFORMIN [Glucophage XR] 500 mg PO QAM 08/17/14 [History] ramipriL [Altace] 5 mg PO DAILY 08/17/14 [History] Aspirin [Halfprin] 1 tab PO DAILY 02/23/15 [History] Clopidogrel [Plavix] 75 mg PO DAILY 12/18/17 [History] Ferrous Fumarate 1 tab PO DAILY 12/18/17 [History] Hydrocodone/Acetaminophen [Hydrocodone-Acetamin 5-325 mg] 1 each PO Q4H 12/18/17 [History] Nitroglycerin [Nitrostat] 0.4 mg SL ASDIRECTED PRN 12/18/17 [History] Pantoprazole Sodium 40 mg PO DAILY 12/18/17 [History] atorvaSTATin [Lipitor] 20 mg PO BEDTIME 12/18/17 [History] carvediloL [Carvedilol] 6.25 mg PO BID 12/18/17 [History] Past Medical History - Past Health History Medical/Surgical History: Denies Medical/Surgical History HEENT History: Reports: Sinusitis Cardiovascular History: Reports: Hypertension, Stents, Other (See Below) Other Cardiovascular History: heart attack 2017 Respiratory History: Reports: None Gastrointestinal History: Reports: None Genitourinary History: Reports: None BASKETBALL SCOUT History: Reports: Musculoskeletal History: Reports: Arthritis Neurological History: Reports: None Psychiatric History: Reports: None Endocrine/Metabolic History: Reports: Diabetes, Type II Hematologic History: Reports: None Immunologic History: Reports: None Oncologic (Cancer) History: Reports: Breast, Ovarian Dermatologic History: Reports: None - Infectious Disease History Infectious Disease History: Reports: None - Past Surgical History Head Surgeries/Procedures: Reports: None HEENT Surgical History: Reports: None Cardiovascular Surgical History: Reports: Carotid Stents Respiratory Surgical History: Reports: None GI Surgical History: Reports: None Female Surgical History: Reports: Breast Implant, Hysterectomy, Oophorectomy Endocrine Surgical History: Reports: None Neurological Surgical History: Reports: None Musculoskeletal Surgical History: Reports: Other (See Below) Other Musculoskeletal Surgeries/Procedures:: Right ankle plate and screws Oncologic Surgical History: Reports: Mastectomy Dermatological Surgical History: Reports: None Social & Family History - Family History Family Medical History: No Pertinent Family History Cardiac: Reports: CAD, AR Oncologic: Reports: Breast - Tobacco Use Tobacco Use Status *Q: Never Tobacco User Second Hand Smoke Exposure: No - Caffeine Use Caffeine Use: Reports: None Other Caffeine Use: decaf coffee Caffeine Use Comment: de-caf - Recreational Drug Use Recreational Drug Use: No H&P Review of Systems - Review of Systems: Review Of Systems: Comprehensive ROS is negative, except as noted in HPI. Exam - Exam Exam: See Below - Vital Signs Vital Signs: Last Vital Signs Temp 36.0 C L 12/09/20 09:48 Pulse 94 12/09/20 12:00 Resp 18 12/09/20 12:00 BP 169/72 H 12/09/20 12:00 Pulse Ox 94 L 12/09/20 12:00 Weight: 58.513 kg - Exam General: Alert, Oriented HEENT: Mucosa Moist & [place] Lungs: Clear to Auscultation, Normal Respiratory Effort Cardiovascular: Regular Rate, Regular Rhythm GI/Abdominal Exam: Normal Bowel Sounds, Soft, Non-Tender Extremities: Non-Tender, No Pedal Edema Skin: Warm, Dry, Intact Neurological: Cranial Nerves Intact, Strength Equal Bilateral - Patient Data Lab Results Last 24 hrs: Laboratory Results - last 24 hr 12/09/20 12/09/20 12/09/20 Range/Units 09:48 09:48 09:48 WBC 9.61 (4.0-11.0) K/uL RBC 4.84 (4.30-5.90) M/uL Hgb 15.2 (12.0-16.0) g/dL Hct 42.7 (36.0-46.0) % MCV 88.2 (80.0-98.0) fL MCH 31.4 (27.0-32.0) pg MCHC 35.6 (31.0-37.0) g/dL RDW Std Deviation 41.0 (28.0-62.0) fl RDW Coeff of Inderjit 13 (11.0-15.0) % Plt Count 298 (150-400) K/uL MPV 8.70 (7.40-12.00) fL Neut % (Auto) 55.4 (48.0-80.0) % Lymph % (Auto) 29.1 (16.0-40.0) % [place] % (Auto) 11.9 (0.0-15.0) % Eos % (Auto) 3.2 (0.0-7.0) % Baso % (Auto) 0.4 (0.0-1.5) % Neut # (Auto) 5.3 (1.4-5.7) K/uL Lymph # (Auto) 2.8 H (0.6-2.4) K/uL [place] # (Auto) 1.1 H (0.0-0.8) K/uL Eos # (Auto) 0.3 (0.0-0.7) K/uL Baso # (Auto) 0.0 (0.0-0.1) K/uL Nucleated RBC % 0.0 /100WBC Nucleated RBCs # 0 K/uL INR 0.94 APTT 26.1 (18.6-31.3) SEC D-Dimer, Quantitative 0.53 H (0.0-0.50) mg/L FEU Lactate (0.20-2.00) mmol/L Sodium 127 L (136-145) mmol/L Potassium 4.2 (3.5-5.1) mmol/L Chloride 89 L (98-107) mmol/L Carbon Dioxide 24.8 (21.0-32.0) mmol/L BUN 7 (7.0-18.0) mg/dL Creatinine 0.9 (0.6-1.0) mg/dL Est Cr Clr Drug Dosing 38.87 mL/min Estimated GFR (MDRD) > 60.0 ml/min Glucose 186 H (74-106) mg/dL Calcium 9.7 (8.5-10.1) mg/dL Ferritin (8-252) ng/mL Total Bilirubin 0.6 (0.2-1.0) mg/dL AST 21 (15-37) IU/L ALT 25 (14-63) IU/L Alkaline Phosphatase 132 H (46-116) U/L Lactate Dehydrogenase 206 (81-234) U/L Troponin I < 0.050 (0.000-0.056) ng/mL B-Natriuretic Peptide (<100) PG/ML Total Protein 8.2 (6.4-8.2) g/dL Albumin 4.2 (3.4-5.0) g/dL Globulin 4.0 (2.6-4.0) g/dL Albumin/Globulin Ratio 1.0 (0.9-1.6) SARS-CoV-2 RNA (SOTERO) (NEGATIVE) 12/09/20 12/09/20 12/09/20 Range/Units 09:48 09:48 09:48 WBC (4.0-11.0) K/uL RBC (4.30-5.90) M/uL Hgb (12.0-16.0) g/dL Hct (36.0-46.0) % MCV (80.0-98.0) fL MCH (27.0-32.0) pg MCHC (31.0-37.0) g/dL RDW Std Deviation (28.0-62.0) fl RDW Coeff of Inderjit (11.0-15.0) % Plt Count (150-400) K/uL MPV (7.40-12.00) fL Neut % (Auto) (48.0-80.0) % Lymph % (Auto) (16.0-40.0) % [place] % (Auto) (0.0-15.0) % Eos % (Auto) (0.0-7.0) % Baso % (Auto) (0.0-1.5) % Neut # (Auto) (1.4-5.7) K/uL Lymph # (Auto) (0.6-2.4) K/uL [place] # (Auto) (0.0-0.8) K/uL Eos # (Auto) (0.0-0.7) K/uL Baso # (Auto) (0.0-0.1) K/uL Nucleated RBC % /100WBC Nucleated RBCs # K/uL INR APTT (18.6-31.3) SEC D-Dimer, Quantitative (0.0-0.50) mg/L FEU Lactate 1.5 (0.20-2.00) mmol/L Sodium (136-145) mmol/L Potassium (3.5-5.1) mmol/L Chloride (98-107) mmol/L Carbon Dioxide (21.0-32.0) mmol/L BUN (7.0-18.0) mg/dL Creatinine (0.6-1.0) mg/dL Est Cr Clr Drug Dosing mL/min Estimated GFR (MDRD) ml/min Glucose (74-106) mg/dL Calcium (8.5-10.1) mg/dL Ferritin 78 (8-252) ng/mL Total Bilirubin (0.2-1.0) mg/dL AST (15-37) IU/L ALT (14-63) IU/L Alkaline Phosphatase (46-116) U/L Lactate Dehydrogenase (81-234) U/L Troponin I (0.000-0.056) ng/mL B-Natriuretic Peptide 20 (<100) PG/ML Total Protein (6.4-8.2) g/dL Albumin (3.4-5.0) g/dL Globulin (2.6-4.0) g/dL Albumin/Globulin Ratio (0.9-1.6) SARS-CoV-2 RNA (SOTERO) (NEGATIVE) 12/09/20 Range/Units 10:30 WBC (4.0-11.0) K/uL RBC (4.30-5.90) M/uL Hgb (12.0-16.0) g/dL Hct (36.0-46.0) % MCV (80.0-98.0) fL MCH (27.0-32.0) pg MCHC (31.0-37.0) g/dL RDW Std Deviation (28.0-62.0) fl RDW Coeff of Inderjit (11.0-15.0) % Plt Count (150-400) K/uL MPV (7.40-12.00) fL Neut % (Auto) (48.0-80.0) % Lymph % (Auto) (16.0-40.0) % [place] % (Auto) (0.0-15.0) % Eos % (Auto) (0.0-7.0) % Baso % (Auto) (0.0-1.5) % Neut # (Auto) (1.4-5.7) K/uL Lymph # (Auto) (0.6-2.4) K/uL [place] # (Auto) (0.0-0.8) K/uL Eos # (Auto) (0.0-0.7) K/uL Baso # (Auto) (0.0-0.1) K/uL Nucleated RBC % /100WBC Nucleated RBCs # K/uL INR APTT (18.6-31.3) SEC D-Dimer, Quantitative (0.0-0.50) mg/L FEU Lactate (0.20-2.00) mmol/L Sodium (136-145) mmol/L Potassium (3.5-5.1) mmol/L Chloride (98-107) mmol/L Carbon Dioxide (21.0-32.0) mmol/L BUN (7.0-18.0) mg/dL Creatinine (0.6-1.0) mg/dL Est Cr Clr Drug Dosing mL/min Estimated GFR (MDRD) ml/min Glucose (74-106) mg/dL Calcium (8.5-10.1) mg/dL Ferritin (8-252) ng/mL Total Bilirubin (0.2-1.0) mg/dL AST (15-37) IU/L ALT (14-63) IU/L Alkaline Phosphatase (46-116) U/L Lactate Dehydrogenase (81-234) U/L Troponin I (0.000-0.056) ng/mL B-Natriuretic Peptide (<100) PG/ML Total Protein (6.4-8.2) g/dL Albumin (3.4-5.0) g/dL Globulin (2.6-4.0) g/dL Albumin/Globulin Ratio (0.9-1.6) SARS-CoV-2 RNA (SOTERO) NEGATIVE (NEGATIVE) Result Diagrams: 12/09/20 09:48 12/09/20 09:48 Sepsis Event Note - Evaluation Sepsis Screening Result: No Definite Risk - Focused Exam Vital Signs: Vital Signs Temp Pulse Resp BP BP Pulse Ox 12/09/20 12:00 94 18 169/72 H 94 L 12/09/20 10:30 87 18 167/88 H 97 12/09/20 10:18 104 H 18 114/71 95 12/09/20 10:14 164/90 H 12/09/20 10:09 161/98 H 12/09/20 09:48 36.0 C L 83 20 210/99 H 98 Problem List Initiated/Reviewed/Updated: Yes Orders Last 24hrs: Active Orders 24 hr Category Date Time Status Patient Status [ADT] Routine ADT 12/09/20 11:48 Active Cardiac Monitoring [RC] Q8H Care 12/09/20 09:41 Active Pulse Oximetry [RC] ASDIRECTED Care 12/09/20 09:41 Active PROCALCITONIN [REF] Stat Lab 12/09/20 09:48 Received TROPONIN I [CHEM] Q6H Lab 12/09/20 16:00 Ordered TROPONIN I [CHEM] Q6H Lab 12/09/20 22:00 Ordered URINALYSIS W/MICROSCOPIC [UA W/MICROSCOPIC] [URIN] Stat Lab 12/09/20 11:38 Ordered Aspirin Med 12/09/20 10:00 Active 162 mg PO DAILY Clopidogrel [Plavix] Med 12/09/20 13:00 Ordered 75 mg PO DAILY DULoxetine [Cymbalta] Med 12/09/20 21:00 Ordered 30 mg PO BID Levothyroxine [Synthroid] Med 12/09/20 13:00 Ordered 50 mcg PO DAILY Nitroglycerin [Nitrostat] Med 12/09/20 09:54 Active 0.4 mg SL Q5M PRN Pantoprazole Sodium Med 12/09/20 13:00 Ordered 40 mg PO DAILY Ramipril Med 12/09/20 13:00 Ordered 5 mg PO DAILY Sodium Chloride 0.9% [Saline Flush] Med 12/09/20 09:41 Active 10 ml FLUSH ASDIRECTED PRN Sodium Chloride 0.9% [Saline Flush] Med 12/09/20 09:41 Active 2.5 ml FLUSH ASDIRECTED PRN atorvaSTATin [Lipitor] Med 12/09/20 21:00 Ordered 20 mg PO BEDTIME carvediloL [Coreg] Med 12/09/20 13:00 Ordered 6.25 mg PO BID Saline Lock Insert [OM.PC] Stat Oth 12/09/20 09:41 Ordered Medication Orders Aspirin (Aspirin) 162 mg PO DAILY YVONNE Stop: 12/10/20 10:01 Last Admin: 12/09/20 10:07 Dose: 162 mg Documented by: LEEANN Atorvastatin Calcium (Lipitor) 20 mg PO BEDTIME YVONNE Carvedilol (Coreg) 6.25 mg PO BID YVONNE Clopidogrel Bisulfate (Plavix) 75 mg PO DAILY YVONNE Duloxetine HCl (Cymbalta) 30 mg PO BID YVONNE Levothyroxine Sodium (Synthroid) 50 mcg PO DAILY YVONNE Nitroglycerin (Nitrostat) 0.4 mg SL Q5M PRN PRN Reason: Chest Pain Last Admin: 12/09/20 10:14 Dose: 0.4 mg Documented by: Admin: 12/09/20 10:09 Dose: 0.4 mg Documented by: LEEANN Non-Formulary Medication (Ramipril) 5 mg PO DAILY [facility] Non-Formulary Medication (Pantoprazole Sodium) 40 mg PO DAILY YVONNE Sodium Chloride (Saline Flush) 10 ml FLUSH ASDIRECTED PRN PRN Reason: Keep Vein Open Last Admin: 12/09/20 10:13 Dose: 10 ml Documented by: LEEANN Sodium Chloride (Saline Flush) 2.5 ml FLUSH ASDIRECTED PRN PRN Reason: Keep Vein Open Last Admin: 12/09/20 10:13 Dose: 2.5 ml Documented by: LEEANN Assessment/Plan Comment:: 80 yo female admitted for chest pain: Chest pain: will monitor on telemetry and trend cardiac enzymes, Will resume home medications as patient did not take her morning medications. Hyponatremia: patient received IV fluids in ED, will recheck sodium level this afternoon.
[2020-12-09] MEDS ORDERED: RAMIPRIL 5 MG PO SCH (13:00)
[2020-12-09] MEDS ORDERED: 50% Dextrose in Water 50 ML Syringe IVPUSH PRN (13:04)
[2020-12-09] MEDS ORDERED: Glucagon,Human Recombinant 1 MG Vial IM PRN (13:04)
[2020-12-09] MEDS: DULoxetine 30 MG Cap PO SCH (15:39)
[2020-12-09] MEDS: Pantoprazole 40 MG Tab.CR PO SCH (15:39)
[2020-12-09] MEDS: Carvedilol 6.25 MG Tab PO SCH ×2 (15:39→16:34)
[2020-12-09] MEDS: Clopidogrel 75 MG Tab PO SCH (15:49)
[2020-12-09 16:26] LABS: BLOOD UREA NITROGEN,BUN 6 mg/dL (7.0-18.0); CARBON DIOXIDE,CO2 23.8 mmol/L (21.0-32.0); CHLORIDE,CL 93 mmol/L (98-107); GLUCOSE RANDOM 175 mg/dL (74-106); POTASSIUM,K 4.4 mmol/L (3.5-5.1); SODIUM,NA 129 mmol/L (136-145)
[2020-12-09] MEDS: Insulin Aspart 100 Units/ML 3 ML Pen SUBCUT SCH (16:33)
[2020-12-09] MEDS ORDERED: Acetaminophen 325 MG/10.15 ML ML PO PRN (17:53)
[2020-12-09] MEDS ORDERED: atorvaSTATin 20 MG Tab PO SCH (21:00)
[2020-12-10] MEDS: Insulin Aspart 100 Units/ML 3 ML Pen SUBCUT SCH ×2 (06:39→11:44)
[2020-12-10 06:53] LABS: BLOOD UREA NITROGEN,BUN 9 mg/dL (7.0-18.0); CARBON DIOXIDE,CO2 24.8 mmol/L (21.0-32.0); CHLORIDE,CL 96 mmol/L (98-107); GLUCOSE RANDOM 187 mg/dL (74-106); SODIUM,NA 132 mmol/L (136-145)
[2020-12-10] MEDS ORDERED: Levothyroxine 50 MCG Tab PO SCH (07:30)
[2020-12-10 08:44] VITALS: BP 146/71; PULSE 89
[2020-12-10] MEDS: Pantoprazole 40 MG Tab.CR PO SCH (09:12)
[2020-12-10] MEDS: DULoxetine 30 MG Cap PO SCH (09:12)
[2020-12-10] MEDS: Clopidogrel 75 MG Tab PO SCH (09:13)
[2020-12-10] MEDS: Aspirin 81 MG Tab.Chew PO SCH (09:13)
[2020-12-10] MEDS: Carvedilol 6.25 MG Tab PO SCH (09:14)
--- NOTE | 2020-12-10 13:54 | PCM.DCSUM1 ---
<Edie Drake - Last Filed: 12/10/20 13:54> Discharge Summary - Hospital Course Brief History: 80 yo female with pmh CAD with 4 stents, HTN, DM II, HLD, CVA who woke up this morning with headache and chest pain. Patient reports sharp chest pain nonradiating with associated symptoms of shortness of breath. PAtient took ASA and nitro and symptoms resolved. In the ED initial EKG and troponin were negative for signs of ischemia. Diagnosis: Stroke: No - Discharge Data Discharge Date: 12/10/20 Discharge Disposition: Home, Self-Care 01 Condition: Fair - Referral to Home Health Primary Care Physician: PCP None - Patient Summary/Data Hospital Course: Started to experience headache followed by chest pain left-sided radiating to midsternal region. Patient had taken nitro and aspirin at home which did not resolve her symptoms, was brought to the ED and given 2 times nitro and aspirin and symptoms resolved. Patient was kept for observations, monitored on telemetry which troponins. All 3 troponins came back negative, there were no telemetry changes overnight, EKG on admission was normal. Patient was discharged. Upon discharge was advised to return to hospital in the event her symptoms resume or worsen. Otherwise is to follow-up with cardiology closely especially due to given past medical history of coronary artery disease requiring 4 x stent and other risk factors such as hypertension and hyperlipidemia. - Patient Instructions Diet: Heart Healthy Diet Activity: As Tolerated Showering/Bathing: May Shower Notify Provider of: Fever, Increased Pain, Swelling and Redness, Drainage, Nausea and/or Vomiting - Discharge Plan *PRESCRIPTION DRUG MONITORING PROGRAM REVIEWED*: Not Applicable *COPY OF PRESCRIPTION DRUG MONITORING REPORT IN PATIENT RADHA: Not Applicable Home Medications: Home Meds DULoxetine HCl [Duloxetine HCl] 30 mg PO DAILY 08/17/14 [History] Levothyroxine Sodium [Levoxyl] 50 mcg PO ACBREAKFAST 08/17/14 [History] metFORMIN [Glucophage XR] 1,000 mg PO DAILY 08/17/14 [History] Aspirin [Halfprin] 1 tab PO DAILY 02/23/15 [History] Clopidogrel [Plavix] 75 mg PO DAILY 12/18/17 [History] Ferrous Fumarate 1 tab PO DAILY 12/18/17 [History] Hydrocodone/Acetaminophen [Hydrocodone-Acetamin 5-325 mg] 1 each PO Q4H 12/18/17 [History] Nitroglycerin [Nitrostat] 0.4 mg SL ASDIRECTED PRN 12/18/17 [History] Pantoprazole Sodium 40 mg PO DAILY 12/18/17 [History] atorvaSTATin [Lipitor] 20 mg PO BEDTIME 12/18/17 [History] carvediloL [Carvedilol] 6.25 mg PO BID 12/18/17 [History] Fludrocortisone [Florinef] 0.1 mg PO DAILY 12/09/20 [History] Potassium Chloride [Klor-Con 10] 10 meq PO DAILY 12/09/20 [History] lisinopriL [Lisinopril] 5 mg PO DAILY 12/09/20 [History] Oxygen Therapy Mode: Room Air Patient Handouts: Nonspecific Chest Pain, Adult Referrals: Chip May MD [Physician] - Nabor Boogie MD [Physician] - (Please called and make a follow up appointment for 1-2 weeks. The number for your PCP's office has been provided for you.) - Discharge Summary/Plan Comment DC Time >30 min.: No Discharge Summary/Plan Comment: Patient was discharged based on being medically stable, ACS was ruled out with negative EKG, troponins, lab work and no overnight telemetry changes. Patient was given paper prescription for stress test, is to follow-up with cardiology closely. - Patient Data Vitals - Most Recent: Last Vital Signs Temp 97.2 F 12/10/20 08:42 Pulse 89 12/10/20 09:14 Resp 16 12/10/20 08:42 BP 146/71 H 12/10/20 09:14 Pulse Ox 96 12/10/20 08:42 Weight - Most Recent: 59.7 kg I&O - Last 24 hours: Intake & Output 12/09/20 12/10/20 12/10/20 22:59 06:59 14:59 Intake Total 500 600 480 Output Total 1800 1260 300 Balance -1300 -660 180 Lab Results - Last 24 hrs: Laboratory Results - last 24 hr 12/09/20 12/09/20 12/09/20 Range/Units 13:46 15:53 16:29 WBC (4.0-11.0) K/uL RBC (4.30-5.90) M/uL Hgb (12.0-16.0) g/dL Hct (36.0-46.0) % MCV (80.0-98.0) fL MCH (27.0-32.0) pg MCHC (31.0-37.0) g/dL RDW Std Deviation (28.0-62.0) fl RDW Coeff of Inderjit (11.0-15.0) % Plt Count (150-400) K/uL MPV (7.40-12.00) fL Neut % (Auto) (48.0-80.0) % Lymph % (Auto) (16.0-40.0) % [place] % (Auto) (0.0-15.0) % Eos % (Auto) (0.0-7.0) % Baso % (Auto) (0.0-1.5) % Neut # (Auto) (1.4-5.7) K/uL Lymph # (Auto) (0.6-2.4) K/uL [place] # (Auto) (0.0-0.8) K/uL Eos # (Auto) (0.0-0.7) K/uL Baso # (Auto) (0.0-0.1) K/uL Nucleated RBC % /100WBC Nucleated RBCs # K/uL Sodium 129 L (136-145) mmol/L Potassium 4.4 (3.5-5.1) mmol/L Chloride 93 L (98-107) mmol/L Carbon Dioxide 23.8 (21.0-32.0) mmol/L BUN 6 L (7.0-18.0) mg/dL Creatinine 0.9 (0.6-1.0) mg/dL Est Cr Clr Drug Dosing 38.87 mL/min Estimated GFR (MDRD) > 60.0 ml/min Glucose 175 H (74-106) mg/dL POC Glucose 178 H (60-110) mg/dL Calcium 10.1 (8.5-10.1) mg/dL Troponin I < 0.050 (0.000-0.056) ng/mL Urine Color YELLOW Urine Appearance CLEAR Urine pH 6.0 (5.0-8.0) Ur Specific [place] 1.010 (1.001-1.035) Urine Protein NEGATIVE (NEGATIVE) mg/dL Urine Glucose (UA) NEGATIVE (NEGATIVE) mg/dL Urine Ketones NEGATIVE (NEGATIVE) mg/dL Urine Occult Blood NEGATIVE (NEGATIVE) Urine Nitrite NEGATIVE (NEGATIVE) Urine Bilirubin NEGATIVE (NEGATIVE) Urine Urobilinogen 0.2 (<2.0) EU/dL Ur Leukocyte Esterase TRACE H (NEGATIVE) Urine RBC 0-1 (0-2/HPF) Urine WBC 0-2 (0-5/HPF) Ur Epithelial Cells RARE (NONE-FEW) Urine Bacteria RARE (NEGATIVE) 12/09/20 12/10/20 12/10/20 Range/Units 22:03 06:05 06:05 WBC 11.30 H (4.0-11.0) K/uL RBC 5.18 (4.30-5.90) M/uL Hgb 15.5 (12.0-16.0) g/dL Hct 45.4 (36.0-46.0) % MCV 87.6 (80.0-98.0) fL MCH 29.9 (27.0-32.0) pg MCHC 34.1 (31.0-37.0) g/dL RDW Std Deviation 41.9 (28.0-62.0) fl RDW Coeff of Inderjit 13 (11.0-15.0) % Plt Count 305 (150-400) K/uL MPV 8.90 (7.40-12.00) fL Neut % (Auto) 64.4 (48.0-80.0) % Lymph % (Auto) 23.4 (16.0-40.0) % [place] % (Auto) 9.7 (0.0-15.0) % Eos % (Auto) 2.2 (0.0-7.0) % Baso % (Auto) 0.3 (0.0-1.5) % Neut # (Auto) 7.3 H (1.4-5.7) K/uL Lymph # (Auto) 2.6 H (0.6-2.4) K/uL [place] # (Auto) 1.1 H (0.0-0.8) K/uL Eos # (Auto) 0.3 (0.0-0.7) K/uL Baso # (Auto) 0.0 (0.0-0.1) K/uL Nucleated RBC % 0.0 /100WBC Nucleated RBCs # 0 K/uL Sodium 132 L (136-145) mmol/L Potassium 4.0 (3.5-5.1) mmol/L Chloride 96 L (98-107) mmol/L Carbon Dioxide 24.8 (21.0-32.0) mmol/L BUN 9 (7.0-18.0) mg/dL Creatinine 0.8 (0.6-1.0) mg/dL Est Cr Clr Drug Dosing 43.73 mL/min Estimated GFR (MDRD) > 60.0 ml/min Glucose 187 H (74-106) mg/dL POC Glucose (60-110) mg/dL Calcium 9.8 (8.5-10.1) mg/dL Troponin I < 0.050 (0.000-0.056) ng/mL Urine Color Urine Appearance Urine pH (5.0-8.0) Ur Specific [place] (1.001-1.035) Urine Protein (NEGATIVE) mg/dL Urine Glucose (UA) (NEGATIVE) mg/dL Urine Ketones (NEGATIVE) mg/dL Urine Occult Blood (NEGATIVE) Urine Nitrite (NEGATIVE) Urine Bilirubin (NEGATIVE) Urine Urobilinogen (<2.0) EU/dL Ur Leukocyte Esterase (NEGATIVE) Urine RBC (0-2/HPF) Urine WBC (0-5/HPF) Ur Epithelial Cells (NONE-FEW) Urine Bacteria (NEGATIVE) 12/10/20 Range/Units 06:30 WBC (4.0-11.0) K/uL RBC (4.30-5.90) M/uL Hgb (12.0-16.0) g/dL Hct (36.0-46.0) % MCV (80.0-98.0) fL MCH (27.0-32.0) pg MCHC (31.0-37.0) g/dL RDW Std Deviation (28.0-62.0) fl RDW Coeff of Inderjit (11.0-15.0) % Plt Count (150-400) K/uL MPV (7.40-12.00) fL Neut % (Auto) (48.0-80.0) % Lymph % (Auto) (16.0-40.0) % [place] % (Auto) (0.0-15.0) % Eos % (Auto) (0.0-7.0) % Baso % (Auto) (0.0-1.5) % Neut # (Auto) (1.4-5.7) K/uL Lymph # (Auto) (0.6-2.4) K/uL [place] # (Auto) (0.0-0.8) K/uL Eos # (Auto) (0.0-0.7) K/uL Baso # (Auto) (0.0-0.1) K/uL Nucleated RBC % /100WBC Nucleated RBCs # K/uL Sodium (136-145) mmol/L Potassium (3.5-5.1) mmol/L Chloride (98-107) mmol/L Carbon Dioxide (21.0-32.0) mmol/L BUN (7.0-18.0) mg/dL Creatinine (0.6-1.0) mg/dL Est Cr Clr Drug Dosing mL/min Estimated GFR (MDRD) ml/min Glucose (74-106) mg/dL POC Glucose 176 H (60-110) mg/dL Calcium (8.5-10.1) mg/dL Troponin I (0.000-0.056) ng/mL Urine Color Urine Appearance Urine pH (5.0-8.0) Ur Specific [place] (1.001-1.035) Urine Protein (NEGATIVE) mg/dL Urine Glucose (UA) (NEGATIVE) mg/dL Urine Ketones (NEGATIVE) mg/dL Urine Occult Blood (NEGATIVE) Urine Nitrite (NEGATIVE) Urine Bilirubin (NEGATIVE) Urine Urobilinogen (<2.0) EU/dL Ur Leukocyte Esterase (NEGATIVE) Urine RBC (0-2/HPF) Urine WBC (0-5/HPF) Ur Epithelial Cells (NONE-FEW) Urine Bacteria (NEGATIVE) Med Orders - Current: Current Medications Discontinued Medications Acetaminophen (Tylenol) 650 mg PO Q6H PRN PRN Reason: Pain Aspirin (Aspirin) 162 mg PO DAILY [facility] Stop: 12/10/20 10:01 Last Admin: 12/10/20 09:13 Dose: 162 mg Documented by: Atorvastatin Calcium (Lipitor) 20 mg PO BEDTIME [facility] Last Admin: 12/09/20 20:42 Dose: 20 mg Documented by: Carvedilol (Coreg) 6.25 mg PO BIDMEALS [facility] Last Admin: 12/10/20 09:14 Dose: 6.25 mg Documented by: Clopidogrel Bisulfate (Plavix) 75 mg PO DAILY [facility] Last Admin: 12/10/20 09:13 Dose: 75 mg Documented by: Dextrose/Water (Dextrose 50% In Water) 50 ml IVPUSH ASDIRECTED PRN PRN Reason: Hypoglycemia Duloxetine HCl (Cymbalta) 30 mg PO DAILY [facility] Last Admin: 12/10/20 09:12 Dose: 30 mg Documented by: Glucagon (Glucagen) 1 mg IM ASDIRECTED PRN PRN Reason: Hypoglycemia Lactated Ringer's (Ringers, Lactated) 1,000 mls @ 999 mls/hr IV .BOLUS ONE Stop: 12/09/20 10:54 Last Admin: 12/09/20 10:07 Dose: 999 mls/hr Documented by: Insulin Aspart (Novolog) 0 unit SUBCUT TIDAC [facility]; Protocol Last Admin: 12/10/20 11:44 Dose: Not Given Documented by: Levothyroxine Sodium (Synthroid) 50 mcg PO ACBREAKFAST [facility] Last Admin: 12/10/20 06:31 Dose: 50 mcg Documented by: Nitroglycerin (Nitrostat) 0.4 mg SL Q5M PRN PRN Reason: Chest Pain Last Admin: 12/09/20 10:14 Dose: 0.4 mg Documented by: Nitroglycerin (Nitro-Bid 2%) 1 gm TOP ONETIME ONE Stop: 12/09/20 10:38 Last Admin: 12/09/20 10:59 Dose: 1 gm Documented by: Pantoprazole Sodium (Protonix) 40 mg PO DAILY [facility] Last Admin: 12/10/20 09:12 Dose: 40 mg Documented by: Sodium Chloride (Saline Flush) 10 ml FLUSH ASDIRECTED PRN PRN Reason: Keep Vein Open Last Admin: 12/09/20 10:13 Dose: 10 ml Documented by: Sodium Chloride (Saline Flush) 2.5 ml FLUSH ASDIRECTED PRN PRN Reason: Keep Vein Open Last Admin: 12/09/20 10:13 Dose: 2.5 ml Documented by: <Brenda Menendez - Last Filed: 12/10/20 22:41> Discharge Summary - Referral to Home Health Primary Care Physician: PCP None - Discharge Summary/Plan Comment Discharge Summary/Plan Comment: I have seen and evaluated the patient and agree with the residents note unless specified in my note - Patient Data Vitals - Most Recent: Last Vital Signs Temp 36.2 C 12/10/20 08:42 Pulse 89 12/10/20 09:14 Resp 16 12/10/20 08:42 BP 146/71 H 12/10/20 09:14 Pulse Ox 96 12/10/20 08:42 I&O - Last 24 hours: Intake & Output 12/10/20 12/10/20 12/10/20 06:59 14:59 22:59 Intake Total 600 480 Output Total 1260 300 Balance -660 180 Lab Results - Last 24 hrs: Laboratory Results - last 24 hr 12/09/20 12/10/20 12/10/20 Range/Units 22:03 06:05 06:05 WBC 11.30 H (4.0-11.0) K/uL RBC 5.18 (4.30-5.90) M/uL Hgb 15.5 (12.0-16.0) g/dL Hct 45.4 (36.0-46.0) % MCV 87.6 (80.0-98.0) fL MCH 29.9 (27.0-32.0) pg MCHC 34.1 (31.0-37.0) g/dL RDW Std Deviation 41.9 (28.0-62.0) fl RDW Coeff of Inderjit 13 (11.0-15.0) % Plt Count 305 (150-400) K/uL MPV 8.90 (7.40-12.00) fL Neut % (Auto) 64.4 (48.0-80.0) % Lymph % (Auto) 23.4 (16.0-40.0) % [place] % (Auto) 9.7 (0.0-15.0) % Eos % (Auto) 2.2 (0.0-7.0) % Baso % (Auto) 0.3 (0.0-1.5) % Neut # (Auto) 7.3 H (1.4-5.7) K/uL Lymph # (Auto) 2.6 H (0.6-2.4) K/uL [place] # (Auto) 1.1 H (0.0-0.8) K/uL Eos # (Auto) 0.3 (0.0-0.7) K/uL Baso # (Auto) 0.0 (0.0-0.1) K/uL Nucleated RBC % 0.0 /100WBC Nucleated RBCs # 0 K/uL Sodium 132 L (136-145) mmol/L Potassium 4.0 (3.5-5.1) mmol/L Chloride 96 L (98-107) mmol/L Carbon Dioxide 24.8 (21.0-32.0) mmol/L BUN 9 (7.0-18.0) mg/dL Creatinine 0.8 (0.6-1.0) mg/dL Est Cr Clr Drug Dosing 43.73 mL/min Estimated GFR (MDRD) > 60.0 ml/min Glucose 187 H (74-106) mg/dL POC Glucose (60-110) mg/dL Calcium 9.8 (8.5-10.1) mg/dL Troponin I < 0.050 (0.000-0.056) ng/mL 12/10/20 Range/Units 06:30 WBC (4.0-11.0) K/uL RBC (4.30-5.90) M/uL Hgb (12.0-16.0) g/dL Hct (36.0-46.0) % MCV (80.0-98.0) fL MCH (27.0-32.0) pg MCHC (31.0-37.0) g/dL RDW Std Deviation (28.0-62.0) fl RDW Coeff of Inderjit (11.0-15.0) % Plt Count (150-400) K/uL MPV (7.40-12.00) fL Neut % (Auto) (48.0-80.0) % Lymph % (Auto) (16.0-40.0) % [place] % (Auto) (0.0-15.0) % Eos % (Auto) (0.0-7.0) % Baso % (Auto) (0.0-1.5) % Neut # (Auto) (1.4-5.7) K/uL Lymph # (Auto) (0.6-2.4) K/uL [place] # (Auto) (0.0-0.8) K/uL Eos # (Auto) (0.0-0.7) K/uL Baso # (Auto) (0.0-0.1) K/uL Nucleated RBC % /100WBC Nucleated RBCs # K/uL Sodium (136-145) mmol/L Potassium (3.5-5.1) mmol/L Chloride (98-107) mmol/L Carbon Dioxide (21.0-32.0) mmol/L BUN (7.0-18.0) mg/dL Creatinine (0.6-1.0) mg/dL Est Cr Clr Drug Dosing mL/min Estimated GFR (MDRD) ml/min Glucose (74-106) mg/dL POC Glucose 176 H (60-110) mg/dL Calcium (8.5-10.1) mg/dL Troponin I (0.000-0.056) ng/mL Med Orders - Current: Current Medications Discontinued Medications Acetaminophen (Tylenol) 650 mg PO Q6H PRN PRN Reason: Pain Aspirin (Aspirin) 162 mg PO DAILY [facility] Stop: 12/10/20 10:01 Last Admin: 12/10/20 09:13 Dose: 162 mg Documented by: Atorvastatin Calcium (Lipitor) 20 mg PO BEDTIME [facility] Last Admin: 12/09/20 20:42 Dose: 20 mg Documented by: Carvedilol (Coreg) 6.25 mg PO BIDMEALS [facility] Last Admin: 12/10/20 09:14 Dose: 6.25 mg Documented by: Clopidogrel Bisulfate (Plavix) 75 mg PO DAILY [facility] Last Admin: 12/10/20 09:13 Dose: 75 mg Documented by: Dextrose/Water (Dextrose 50% In Water) 50 ml IVPUSH ASDIRECTED PRN PRN Reason: Hypoglycemia Duloxetine HCl (Cymbalta) 30 mg PO DAILY [facility] Last Admin: 12/10/20 09:12 Dose: 30 mg Documented by: Glucagon (Glucagen) 1 mg IM ASDIRECTED PRN PRN Reason: Hypoglycemia Lactated Ringer's (Ringers, Lactated) 1,000 mls @ 999 mls/hr IV .BOLUS ONE Stop: 12/09/20 10:54 Last Admin: 12/09/20 10:07 Dose: 999 mls/hr Documented by: Insulin Aspart (Novolog) 0 unit SUBCUT TIDAC [facility]; Protocol Last Admin: 12/10/20 11:44 Dose: Not Given Documented by: Levothyroxine Sodium (Synthroid) 50 mcg PO ACBREAKFAST [facility] Last Admin: 12/10/20 06:31 Dose: 50 mcg Documented by: Nitroglycerin (Nitrostat) 0.4 mg SL Q5M PRN PRN Reason: Chest Pain Last Admin: 12/09/20 10:14 Dose: 0.4 mg Documented by: Nitroglycerin (Nitro-Bid 2%) 1 gm TOP ONETIME ONE Stop: 12/09/20 10:38 Last Admin: 12/09/20 10:59 Dose: 1 gm Documented by: Pantoprazole Sodium (Protonix) 40 mg PO DAILY [facility] Last Admin: 12/10/20 09:12 Dose: 40 mg Documented by: Sodium Chloride (Saline Flush) 10 ml FLUSH ASDIRECTED PRN PRN Reason: Keep Vein Open Last Admin: 12/09/20 10:13 Dose: 10 ml Documented by: Sodium Chloride (Saline Flush) 2.5 ml FLUSH ASDIRECTED PRN PRN Reason: Keep Vein Open Last Admin: 12/09/20 10:13 Dose: 2.5 ml Documented by:
== END 2020-12-10 11:50 | disposition home or self-care (01) ==
LOC: MW.ED 09:38 → MW.MS 11:48
PROVIDERS: ADMIT Internal Medicine; ATTEND Internal Medicine
DX: R07.9 Chest pain, unspecified (principal); I25.10 Atherosclerotic heart disease of native coronary artery without angina pectoris; I10 Essential (primary) hypertension; E11.9 Type 2 diabetes mellitus without complications; E78.5 Hyperlipidemia, unspecified; I25.2 Old myocardial infarction; E87.1 Hypo-osmolality and hyponatremia; Z20.822 Contact with and (suspected) exposure to COVID-19; Z86.73 Personal history of transient ischemic attack (TIA), and cerebral infarction without residual deficits; Z79.82 Long term (current) use of aspirin; Z79.899 Other long term (current) drug therapy; Z95.5 Presence of coronary angioplasty implant and graft; Z98.890 Other specified postprocedural states
CPT/HCPCS: 36415; 70450; 71045; 80048; 80053; 81001; 82728; 82962; 83605; 83615; 83880; 84145; 84484; 85025; 85379; 85610; 85730; 93005; 99285; A9270; G0378; J1815; J7120; U0002; 93010; 99284

== ENCOUNTER 2021-12-18 11:20 | Emergency (ER) | payer MEDICARE, OTHER ==
[2021-12-18] MEDS ORDERED: Aspirin 81 MG Tab.Chew PO ONE (11:24)
[2021-12-18] MEDS ORDERED: Sodium Chloride 0.9% 2.5 ML Syringe FLUSH PRN (11:24)
[2021-12-18] MEDS ORDERED: Sodium Chloride 0.9% 10 ML Syringe FLUSH PRN (11:24)
[2021-12-18 12:10] LABS: BLOOD UREA NITROGEN,BUN 8 mg/dL (7.0-18.0); CARBON DIOXIDE,CO2 24.5 mmol/L (21.0-32.0); CHLORIDE,CL 94 mmol/L (98-107); GLUCOSE RANDOM 157 mg/dL (74-106); LIPASE 88 U/L (73-393); POTASSIUM,K 3.7 mmol/L (3.5-5.1); SODIUM,NA 131 mmol/L (136-145)
[2021-12-18 13:18] VITALS: BP 180/90; PULSE 89
== END 2021-12-18 13:20 | disposition home or self-care (01) ==
LOC: MW.ED 11:20
DX: R07.89 Other chest pain (principal); M25.519 Pain in unspecified shoulder; I10 Essential (primary) hypertension; M19.90 Unspecified osteoarthritis, unspecified site; E11.9 Type 2 diabetes mellitus without complications; Z79.82 Long term (current) use of aspirin; Z79.84 Long term (current) use of oral hypoglycemic drugs; Z79.899 Other long term (current) drug therapy; Z20.822 Contact with and (suspected) exposure to COVID-19
CPT/HCPCS: 36415; 71045; 80053; 83690; 84484; 85025; 93005; 99285; A9270; U0002

== ENCOUNTER 2022-12-22 10:13 | Emergency (ER) | payer MEDICARE, OTHER ==
[2022-12-22] MEDS ORDERED: Sodium Chloride 0.9% 2.5 ML Syringe FLUSH PRN (10:14)
[2022-12-22] MEDS ORDERED: Sodium Chloride 0.9% 10 ML Syringe FLUSH PRN (10:14)
[2022-12-22] MEDS ORDERED: Acetaminophen 325 MG Tab PO ONE (10:25)
[2022-12-22] MEDS: Nitroglycerin 0.4 MG Tab.SL SL PRN ×2 (10:32→10:41)
[2022-12-22] MEDS ORDERED: Ondansetron 4 MG/2 ML SDV IVPUSH ONE ×2 (10:52→13:09)
[2022-12-22 11:00] LABS: CARBON DIOXIDE,CO2 27.7 mmol/L (21.0-32.0); POTASSIUM,K 3.6 mmol/L (3.5-5.1)
[2022-12-22] MEDS ORDERED: Morphine 2 MG/ML SYRINGE IVPUSH ONE (13:09)
[2022-12-22] MEDS ORDERED: Iopamidol 755 MG/ML 500 ML Multipack Bottle IVPUSH ONE (14:44)
[2022-12-22 15:15] VITALS: BP 161/68; PULSE 90
== END 2022-12-22 17:13 | disposition home or self-care (01) ==
LOC: MW.ED 10:13
DX: R07.2 Precordial pain (principal); C80.0 Disseminated malignant neoplasm, unspecified; I10 Essential (primary) hypertension; E11.9 Type 2 diabetes mellitus without complications; I25.2 Old myocardial infarction; Z79.899 Other long term (current) drug therapy; Z79.84 Long term (current) use of oral hypoglycemic drugs; Z88.6 Allergy status to analgesic agent; Z90.710 Acquired absence of both cervix and uterus; Z20.822 Contact with and (suspected) exposure to COVID-19
CPT/HCPCS: 36415; 70450; 71045; 71275; 74174; 80053; 84484; 85025; 93005; 96374; 96375; 96376; 99285; A9270; J2270; J2405; J3490; Q9967; U0002; 93010; 99284

== ENCOUNTER 2023-01-22 06:20 | Day surgery (SDC) | payer MEDICARE, OTHER ==
[~2023-01-22 06:20] MED LIST: Acetaminophen 1,000 MG in Premix Bag 1 BAG IV SCH; Lactated Ringers 1,000 ML IV SCH; Pregabalin 75 MG Cap PO SCH; ceFAZolin 1 GM in Premix Bag 1 BAG IV SCH
[2023-01-22] MEDS ORDERED: Metoclopramide 10 MG/2 ML SDV IVPUSH PRN (07:02)
[2023-01-22] MEDS ORDERED: Ondansetron 4 MG/2 ML SDV IVPUSH PRN (07:02)
[2023-01-22] MEDS ORDERED: Albuterol 0.083% 2.5 MG/3 ML Neb Soln NEB PRN (07:02)
[2023-01-22] MEDS ORDERED: Naloxone 0.4 MG/ML SDV IVPUSH PRN (07:02)
[2023-01-22] MEDS ORDERED: Morphine 2 MG/ML SYRINGE IVPUSH PRN (07:02)
[2023-01-22] MEDS ORDERED: HYDROmorphone 1 MG/ML Syringe IVPUSH PRN (07:02)
[2023-01-22] MEDS ORDERED: fentaNYL 50 MCG/ML SDV IVPUSH PRN (07:02)
[2023-01-22] MEDS ORDERED: Propofol 200 MG/20 ML SDV ONE (07:26)
[2023-01-22] MEDS ORDERED: fentaNYL 100 MCG/2 ML SDV ONE (07:26)
[2023-01-22] MEDS ORDERED: Ondansetron 4 MG/2 ML SDV ONE (07:28)
[2023-01-22] MEDS ORDERED: Dexmedetomidine 200 MCG/2 ML SDV ONE (07:28)
[2023-01-22] MEDS ORDERED: Lidocaine 2% 5 ML SDV ONE (07:28)
[2023-01-22] MEDS ORDERED: Dexamethasone 4 MG/ML 5 ML MDV ONE (07:28)
[2023-01-22] MEDS ORDERED: Rocuronium Bromide 50 MG/5 ML Syringe ONE (07:28)
[2023-01-22] MEDS ORDERED: Water For Injection, Sterile 20 ML ONE (07:28)
[2023-01-22] MEDS ORDERED: Ketorolac 30 MG/ML SDV ONE (07:28)
[2023-01-22] MEDS ORDERED: Bupivacaine 0.5% 30 ML SDV ONE (07:31)
[2023-01-22] MEDS ORDERED: Sugammadex Sodium 200 MG/2 ML VIAL ONE (07:33)
[2023-01-22] MEDS ORDERED: Bupivacaine 0.25% 30 ML SDV ONE (07:42)
[2023-01-22] MEDS ORDERED: ceFAZolin 1 GM Vial ONE (07:55)
[2023-01-22] MEDS ORDERED: Heparin Sodium 5,000 Units/ML Vial ONE (08:35)
[2023-01-22] MEDS ORDERED: Phenylephrine 1% 10 MG/ML SDV ONE (08:55)
[2023-01-22 10:52] VITALS: PULSE 70
[2023-01-22] MEDS ORDERED: Promethazine 25 MG/ML SDV ONE (11:29)
[2023-01-22] MEDS ORDERED: Famotidine 20 MG/2 ML SDV ONE (11:31)
[2023-01-22 13:13] VITALS: BP 185/83
== END 2023-01-22 12:00 | disposition home or self-care (01) ==
LOC: MW.SDS 06:20
PROVIDERS: ATTEND Surgery
DX: C78.6 Secondary malignant neoplasm of retroperitoneum and peritoneum (principal); C80.1 Malignant (primary) neoplasm, unspecified; E27.40 Unspecified adrenocortical insufficiency; D64.9 Anemia, unspecified; M19.90 Unspecified osteoarthritis, unspecified site; I25.10 Atherosclerotic heart disease of native coronary artery without angina pectoris; F32.A Depression, unspecified; K21.9 Gastro-esophageal reflux disease without esophagitis; I10 Essential (primary) hypertension; E78.00 Pure hypercholesterolemia, unspecified; E87.6 Hypokalemia; E04.1 Nontoxic single thyroid nodule; E11.9 Type 2 diabetes mellitus without complications; Z79.899 Other long term (current) drug therapy; Z79.82 Long term (current) use of aspirin; Z79.84 Long term (current) use of oral hypoglycemic drugs; Z98.890 Other specified postprocedural states; Z95.5 Presence of coronary angioplasty implant and graft; Z79.890 Hormone replacement therapy
CPT/HCPCS: 49321; 82947; A9270; J0131; J0690; J1100; J1644; J1885; J2370; J2405; J2550; J2704; J3010; J3490; J7120; J7030

== ENCOUNTER 2023-02-19 06:24 | Day surgery (SDC) | payer MEDICARE, OTHER ==
[~2023-02-19 06:24] MED LIST changes: -Pregabalin 75 MG Cap PO SCH; -ceFAZolin 1 GM in Premix Bag 1 BAG IV SCH; +ceFAZolin 2 GM in Premix Bag 1 BAG IV SCH
[2023-02-19] MEDS ORDERED: Ondansetron 4 MG/2 ML SDV IVPUSH PRN (07:03)
[2023-02-19] MEDS ORDERED: Metoclopramide 10 MG/2 ML SDV IVPUSH PRN (07:03)
[2023-02-19] MEDS ORDERED: Albuterol 0.083% 2.5 MG/3 ML Neb Soln NEB PRN (07:03)
[2023-02-19] MEDS ORDERED: fentaNYL 50 MCG/ML SDV IVPUSH PRN (07:03)
[2023-02-19] MEDS ORDERED: Naloxone 0.4 MG/ML SDV IVPUSH PRN (07:03)
[2023-02-19] MEDS ORDERED: Morphine 2 MG/ML SYRINGE IVPUSH PRN (07:03)
[2023-02-19] MEDS ORDERED: HYDROmorphone 1 MG/ML Syringe IVPUSH PRN (07:03)
[2023-02-19] MEDS ORDERED: Lidocaine 1% 20 ML MDV ONE (07:21)
[2023-02-19] MEDS ORDERED: Heparin Sodium 100 Units/ML 3 ML Syringe ONE (07:21)
[2023-02-19] MEDS ORDERED: Bupivacaine 0.5% 30 ML SDV ONE (07:21)
[2023-02-19] MEDS ORDERED: Propofol 200 MG/20 ML SDV ONE (07:30)
[2023-02-19] MEDS ORDERED: fentaNYL 100 MCG/2 ML SDV ONE (07:30)
[2023-02-19] MEDS ORDERED: Dexamethasone 4 MG/ML 5 ML MDV ONE (07:32)
[2023-02-19] MEDS ORDERED: Ondansetron 4 MG/2 ML SDV ONE (07:32)
[2023-02-19] MEDS ORDERED: Dexmedetomidine 200 MCG/2 ML SDV ONE ×2 (07:32→08:55)
[2023-02-19] MEDS ORDERED: Water For Injection, Sterile 20 ML ONE (07:32)
[2023-02-19] MEDS ORDERED: Lidocaine 1% 5 ML VIAL ONE (07:32)
[2023-02-19] MEDS ORDERED: ceFAZolin 1 GM Vial ONE (08:14)
[2023-02-19 13:11] VITALS: BP 166/79; PULSE 71
== END 2023-02-19 11:20 | disposition home or self-care (01) ==
LOC: MW.SDS 06:24
PROVIDERS: ATTEND Surgery
DX: C80.0 Disseminated malignant neoplasm, unspecified (principal); I10 Essential (primary) hypertension; R91.1 Solitary pulmonary nodule; I25.10 Atherosclerotic heart disease of native coronary artery without angina pectoris; E11.9 Type 2 diabetes mellitus without complications; E03.9 Hypothyroidism, unspecified; K21.9 Gastro-esophageal reflux disease without esophagitis; E78.00 Pure hypercholesterolemia, unspecified; M19.90 Unspecified osteoarthritis, unspecified site; F32.A Depression, unspecified; Z79.899 Other long term (current) drug therapy; Z79.82 Long term (current) use of aspirin; Z98.890 Other specified postprocedural states
CPT/HCPCS: 36561; 71045; 76000; J0131; J0690; J1642; J2405; J2704; J3010; J3490; J7120; J1100

== ENCOUNTER 2023-03-08 11:09 | Emergency (ER) | payer MEDICARE, OTHER ==
[2023-03-08] MEDS ORDERED: Ondansetron 4 MG/2 ML SDV IVPUSH ONE (11:18)
[2023-03-08] MEDS ORDERED: Sodium Chloride 0.9% 1,000 ML IV ONE (11:18)
[2023-03-08] MEDS ORDERED: Morphine 4 MG/ML Syringe IVPUSH ONE (11:47)
[2023-03-08 12:11] LABS: CARBON DIOXIDE,CO2 29.2 mmol/L (21.0-32.0); POTASSIUM,K 3.4 mmol/L (3.5-5.1)
[2023-03-08] MEDS ORDERED: Iopamidol 755 Mg/ML 100 ML Bottle IVPUSH ONE (12:17)
[2023-03-08 14:19] VITALS: BP 181/94; PULSE 76
== END 2023-03-08 14:39 | disposition home or self-care (01) ==
LOC: MW.ED 11:09
DX: R10.32 Left lower quadrant pain (principal); R11.2 Nausea with vomiting, unspecified; I10 Essential (primary) hypertension; E11.9 Type 2 diabetes mellitus without complications; E03.9 Hypothyroidism, unspecified; E78.00 Pure hypercholesterolemia, unspecified; I25.2 Old myocardial infarction; K21.9 Gastro-esophageal reflux disease without esophagitis; M19.90 Unspecified osteoarthritis, unspecified site; Z90.49 Acquired absence of other specified parts of digestive tract; Z90.710 Acquired absence of both cervix and uterus; Z98.890 Other specified postprocedural states; Z90.722 Acquired absence of ovaries, bilateral; Z79.82 Long term (current) use of aspirin; Z79.84 Long term (current) use of oral hypoglycemic drugs; Z79.899 Other long term (current) drug therapy; Z85.43 Personal history of malignant neoplasm of ovary
CPT/HCPCS: 36415; 74177; 80053; 81003; 83605; 83690; 85025; 96361; 96374; 96375; 99285; J1642; J2270; J2405; J7030; Q9967; 99284

== ENCOUNTER 2023-03-26 20:22 | Emergency (ER) | payer MEDICARE, OTHER ==
[2023-03-26] MEDS ORDERED: Sodium Chloride 0.9% 2.5 ML Syringe FLUSH PRN (20:35)
[2023-03-26] MEDS ORDERED: Sodium Chloride 0.9% 10 ML Syringe FLUSH PRN (20:35)
[2023-03-26 21:42] LABS: EOSINOPHILS ABSOLUTE AUTO 0.1 K/uL (0.0-0.7); EOSINOPHILS PERCENT AUTO 3.3 % (0.0-7.0); HEMATOCRIT 35.1 % (36.0-46.0); HEMOGLOBIN 12.6 g/dL (12.0-16.0); LYMPHOCYTES ABSOLUTE AUTO 1.2 K/uL (0.6-2.4); LYMPHOCYTES PERCENT AUTO 33.1 % (16.0-40.0); MEAN CORPUSCULAR HEMOGLOBIN 29.1 pg (27.0-32.0); MEAN CORPUSCULAR HGB CONC 35.9 g/dL (31.0-37.0); MEAN CORPUSCULAR VOLUME 81.1 fL (80.0-98.0); MONOCYTES ABSOLUTE AUTO 0.1 K/uL (0.0-0.8); MONOCYTES PERCENT AUTO 1.9 % (0.0-15.0); NEUTROPHILS ABSOLUTE AUTO 2.3 K/uL (1.4-5.7); NEUTROPHILS PERCENT AUTO 61.7 % (48.0-80.0); NRBC ABSOLUTE 0 K/uL; PLATELET COUNT,PLT 148 K/uL (150-400); RED BLOOD CELL COUNT 4.33 M/uL (4.30-5.90); WHITE BLOOD CELL COUNT,WBC 3.69 K/uL (4.0-11.0)
[2023-03-26 22:06] LABS: A/G RATIO 0.9 (0.9-1.6); ALBUMIN 3.3 g/dL (3.4-5.0); BILIRUBIN TOTAL 0.4 mg/dL (0.2-1.0); CALCIUM 11.3 mg/dL (8.5-10.1); CARBON DIOXIDE,CO2 29.4 mmol/L (21.0-32.0); CREATININE 1.1 mg/dL (0.6-1.0); EST CRCL DRUG DOSING (CG) 30.78 mL/min; POTASSIUM,K 5.4 mmol/L (3.5-5.1); PROTEIN TOTAL,TP 7.1 g/dL (6.4-8.2)
[2023-03-26 22:20] LABS: CORONAVIRUS COVID-19 NAA NEGATIVE (NEGATIVE); INFLUENZA A NAA NEGATIVE (NEGATIVE); INFLUENZA B NAA NEGATIVE (NEGATIVE)
[2023-03-26 23:09] VITALS: BP 154/80; PULSE 85
== END 2023-03-26 23:14 | disposition home or self-care (01) ==
LOC: MW.ED 20:22
DX: R07.89 Other chest pain (principal); R61 Generalized hyperhidrosis; I10 Essential (primary) hypertension; E03.9 Hypothyroidism, unspecified; E11.9 Type 2 diabetes mellitus without complications; I25.2 Old myocardial infarction; K21.9 Gastro-esophageal reflux disease without esophagitis; Z86.73 Personal history of transient ischemic attack (TIA), and cerebral infarction without residual deficits; Z79.899 Other long term (current) drug therapy; Z79.82 Long term (current) use of aspirin; Z95.5 Presence of coronary angioplasty implant and graft; Z20.822 Contact with and (suspected) exposure to COVID-19; Z71.1 Person with feared health complaint in whom no diagnosis is made
CPT/HCPCS: 0240U; 36415; 71045; 80053; 83735; 84484; 85025; 93005; 99285; 93010; 99283

== ENCOUNTER 2023-03-30 11:06 | Emergency (ER) | payer MEDICARE, OTHER ==
[2023-03-30 18:33] VITALS: BP 150/75; PULSE 99
== END 2023-03-30 18:30 | disposition home or self-care (01) ==
LOC: MW.ED 11:06
DX: S06.5XAA Traumatic subdural hemorrhage with loss of consciousness status unknown, initial encounter (principal); S52.572A Other intraarticular fracture of lower end of left radius, initial encounter for closed fracture; S52.612A Displaced fracture of left ulna styloid process, initial encounter for closed fracture; E78.00 Pure hypercholesterolemia, unspecified; I10 Essential (primary) hypertension; I25.2 Old myocardial infarction; K21.9 Gastro-esophageal reflux disease without esophagitis; M19.90 Unspecified osteoarthritis, unspecified site; E11.9 Type 2 diabetes mellitus without complications; Z79.82 Long term (current) use of aspirin; Z79.02 Long term (current) use of antithrombotics/antiplatelets; Z79.899 Other long term (current) drug therapy; Z79.84 Long term (current) use of oral hypoglycemic drugs
CPT/HCPCS: 29125; 70450; 70450-26; 73110-26-LT; 73110-LT; 99283; 99284-25

== ENCOUNTER 2023-07-09 20:52 | Emergency (ER) | payer MEDICARE, OTHER ==
[2023-07-09] MEDS ORDERED: Aspirin 81 MG Tab.Chew PO ONE (20:54)
[2023-07-09 21:07] LABS: BASOPHILS PERCENT AUTO 0.3 % (0.0-1.5); EOSINOPHILS ABSOLUTE AUTO 0.2 K/uL (0.0-0.7); EOSINOPHILS PERCENT AUTO 3.3 % (0.0-7.0); HEMATOCRIT 32.9 % (36.0-46.0); HEMOGLOBIN 11.5 g/dL (12.0-16.0); LYMPHOCYTES ABSOLUTE AUTO 2.1 K/uL (0.6-2.4); LYMPHOCYTES PERCENT AUTO 36.4 % (16.0-40.0); MEAN CORPUSCULAR VOLUME 94.5 fL (80.0-98.0); MONOCYTES ABSOLUTE AUTO 0.8 K/uL (0.0-0.8); MONOCYTES PERCENT AUTO 14.4 % (0.0-15.0); NEUTROPHILS ABSOLUTE AUTO 2.7 K/uL (1.4-5.7); NEUTROPHILS PERCENT AUTO 45.6 % (48.0-80.0); NRBC ABSOLUTE 0 K/uL; PLATELET COUNT,PLT 211 K/uL (150-400); RED BLOOD CELL COUNT 3.48 M/uL (4.30-5.90); WHITE BLOOD CELL COUNT,WBC 5.83 K/uL (4.0-11.0)
[2023-07-09 21:22] LABS: D-DIMER QUANTITATIVE 1.08 mg/L FEU (0.00-0.50); INR 0.97 (0.86-1.11); PTT,PARTIAL THROMBOPLSTIN TIME 27.1 SEC (23.9-30.7)
[2023-07-09 21:39] LABS: A/G RATIO 0.8 (0.9-1.6); BILIRUBIN TOTAL 0.3 mg/dL (0.2-1.0); CALCIUM 8.1 mg/dL (8.5-10.1); CARBON DIOXIDE,CO2 28.6 mmol/L (21.0-32.0); CREATININE 0.7 mg/dL (0.6-1.0); EST CRCL DRUG DOSING (CG) 48.37 mL/min; MAGNESIUM 1.5 mg/dL (1.8-2.4); POTASSIUM,K 3.7 mmol/L (3.5-5.1); PROTEIN TOTAL,TP 6.7 g/dL (6.4-8.2)
[2023-07-09] MEDS ORDERED: Iopamidol 755 MG/ML 500 ML Multipack Bottle IVPUSH ONE (22:05)
[2023-07-09 22:22] VITALS: PULSE 78
[2023-07-10 00:18] VITALS: BP 110/70
== END 2023-07-10 00:15 | disposition home or self-care (01) ==
LOC: MW.ED 20:52
DX: R07.9 Chest pain, unspecified (principal); E78.00 Pure hypercholesterolemia, unspecified; I25.10 Atherosclerotic heart disease of native coronary artery without angina pectoris; I10 Essential (primary) hypertension; I25.2 Old myocardial infarction; K21.9 Gastro-esophageal reflux disease without esophagitis; M19.90 Unspecified osteoarthritis, unspecified site; E11.9 Type 2 diabetes mellitus without complications; Z79.82 Long term (current) use of aspirin; Z79.899 Other long term (current) drug therapy; Z79.84 Long term (current) use of oral hypoglycemic drugs
CPT/HCPCS: 36415; 71045; 71275; 80053; 83690; 83735; 83880; 84484; 85025; 85379; 85610; 85730; 93005; 99285; A9270; Q9967; 93010; 99284

== ENCOUNTER 2023-09-02 08:22 | Emergency (ER) | payer MEDICARE, OTHER ==
[2023-09-02] MEDS ORDERED: Morphine 4 MG/ML Syringe IVPUSH ONE (08:24)
[2023-09-02] MEDS ORDERED: Heparin Sodium 100 Units/ML 3 ML Syringe FLUSH STA (11:46)
[2023-09-02 12:00] VITALS: BP 165/88; PULSE 83
== END 2023-09-02 11:57 | disposition home or self-care (01) ==
LOC: MW.ED 08:22
DX: T14.8XXA Other injury of unspecified body region, initial encounter (principal); R07.89 Other chest pain; E78.00 Pure hypercholesterolemia, unspecified; I10 Essential (primary) hypertension; I25.2 Old myocardial infarction; E11.9 Type 2 diabetes mellitus without complications; Z86.73 Personal history of transient ischemic attack (TIA), and cerebral infarction without residual deficits; Z79.899 Other long term (current) drug therapy; W18.30XA Fall on same level, unspecified, initial encounter; Y92.238 Other place in hospital as the place of occurrence of the external cause
CPT/HCPCS: 70450; 71250; 72125; 73030; 96374; 99284; J1642; J2270